=== PATIENT | female | born 1950 | race Caucasian/White ===

== ENCOUNTER 2017-02-19 01:36 | Inpatient (IN) | payer OTHER ==
--- NOTE | 2017-02-19 01:43 | DR.GENAD ---
HPI - HPI Comment HPI Comment: HISTORY BELOW. - Complaint/Symptoms Chief Complaint Doctors Comments: INCRESING SOB TIMES 2 DAYS. N/V YESTERDAY. NO FEVER. TONIGHT WAS ON HER BPAP AND STARTED HAVING SEVERE SOB. CHRONIC PERIPHERAL EDEMA WHICH IS SLIGHTLY WORSE. - Nurses notes reviewed Nurses Notes Review: Yes - Source History Provided: Patient, Family Member - Mode of Arrival Mode of Arrival: Ambulatory - Timing Came on: Suddenly - Duration Duration: Constant Duration: Days - Severity Severity: Moderate PMH - PMH Past Medical History: Arthritis, Dyslipidemia, GERD, Hypertension Past Surgical History: Yes Surgical History: , Cholecystectomy, Hysterectomy, Joint Replacement - Family History Family Medical History: Diabetes Mellitus, Cancer, [place], Coronary Artery Disease, Heart Failure, Hypertension - Social History Do you use any recreational Drugs:: No ROS - Review of Systems Constitutional: Weakness, Fatigue. negative: Chills, Fever, Loss of Appetite Eyes: negative: Eye Pain, Discharge ENTM: Nose Congestion. negative: Ear Pain, Nose Discharge, Throat Pain Respiratoy: Productive Cough, Short of Breath, Wheezing. negative: Non- Productive Cough, Hemoptysis Cardiovascular: Chest Pain, Edema Gastrointestinal/Abdominal: Nausea, Vomiting. negative: Abdominal Pain, Diarrhea Genitourinary: negative: Dysuria, Frequency, Hematuria Neurological: Weakness. negative: Headache, Dizziness Musculoskeletal: Back Pain, Joint Pain, Joint Swelling, Muscle Pain, Back Integumentary: Change in Color, Other (CHRONIC STASIS DERMATITIS.) Hematologic/Lymphatic: Easy Bleeding, Easy Bruising Endocrine: No Symptoms Reported All Other Systems: Reviewed and Negative PE - Vital Signs Vitals: Pulse Rate 108 Respiratory Rate 26 Blood Pressure [Left Arm] 119/53 Blood Pressure [Right Arm] 105/55 Blood Pressure 126/68 O2 Sat by Pulse Oximetry 89 - General Limitations: No Limitations General Appearance: Alert - Head Head Exam: Normal Inspection - Eyes Eye exam: Normal Appearance, PERRL, EOMI. negative: Scleral Icterus, Conjunctival Injection - ENT ENT Exam: Normal External Ear Exam External Ear Exam: Normal External Inspection TM/Canal Exam: Bilateral Normal Nose Exam: Normal Nose Exam Mouth Exam: Normal Inspection Throat Exam: Normal Inspection - Neck Neck Exam: Trachea Midline - Respiratory Respiratory Exam: Respiratory Distress Respiratory Exam: Bilateral Wheezing, Bilateral Rhonchi, Upper Wheezing, Upper Rhonchi, Lower Wheezing, Lower Rhonchi - Cardiovascular Cardiovascular Exam: Regular Rate, Normal Rhythm, Normal Heart Sounds - Abdominal Exam Abdominal Exam: Normal Bowel Sounds, Soft. negative: Tenderness Abdominal Tenderness: Diffuse. negative: Moderate - Extremities Extremities Exam: Edema (3PLUS) - Back Back Exam: Paraspinal Tenderness - Psychiatric Psychiatric Exam: Normal Affect, Normal Mood - Skin Skin Exam: Erythema MDM - Additional Information Additional Information Obtained From: Family - Differential Diagnosis Differential Diagnosis: CHF, COPD, PNEUMONIA, PNEUMOTHORAX, PULMONARY EMBOLISM. Course - Treatment Treatment: SEE ORDERS. - Education/Counseling Education/Counseling: Patient, Family, Education Educated On: Diagnosis ROR - Labs Reviewed Laboratory Results Reviewed?: Yes Result Diagrams: 02/19/17 01:35 02/19/17 01:35 Laboratory: WBC 19.5 X10^3/uL (3.6-10.0) H 02/19/17 01:35 RBC 4.83 X10^6/uL (3.5-5.4) 02/19/17 01:35 Hgb 13.6 g/dL (12.0-16.0) 02/19/17 01:35 Hct 41.7 % (36.0-47.0) 02/19/17 01:35 MCV 86.3 fL (80.0-100.0) 02/19/17 01:35 MCH 28.2 pg (27.0-34.0) 02/19/17 01:35 MCHC 32.7 g/dL (33.0-35.0) L 02/19/17 01:35 RDW 14.9 % (11.6-16.5) 02/19/17 01:35 Plt Count 137 X10^3/uL (150.0-450.0) L 02/19/17 01:35 Plt Count Comment Decreased (ADEQUATE) A 02/19/17 01:35 MPV 9.2 fL (7.4-11.0) 02/19/17 01:35 Neut % 93.3 % (42.0-75.0) H 02/19/17 01:35 Lymph % 2.6 % (21.0-51.0) L 02/19/17 01:35 [place] % 3.8 % (0.0-13.0) 02/19/17 01:35 Eos % 0.0 % (0.9-2.9) L 02/19/17 01:35 Baso % 0.3 % (0.2-1.0) 02/19/17 01:35 Neut # 18.1 x10^3/uL (2.2-4.8) H 02/19/17 01:35 Lymph # 0.5 X10^3/uL (1.3-2.9) L 02/19/17 01:35 [place] # 0.7 x10^3/uL (0.3-0.8) 02/19/17 01:35 Eos # 0.0 x10^3/uL (0.0-0.2) 02/19/17 01:35 Baso # 0.1 X10^3/uL (0.0-0.1) 02/19/17 01:35 Absolute Nucleated RBC 0.0 /100WBC 02/19/17 01:35 Total Counted 100 02/19/17 01:35 Neutrophils % (Manual) 83 % (39-76) H 02/19/17 01:35 Band Neutrophils % 8 % (0-10) 02/19/17 01:35 Lymphocytes % (Manual) 5 % (13-43) L 02/19/17 01:35 Monocytes % (Manual) 4 % (4-9) 02/19/17 01:35 Plt Morphology Comment Normal (NORMAL) 02/19/17 01:35 RBC Morphology Abnormal (NORMAL) A 02/19/17 01:35 Stomatocytes Noted 02/19/17 01:35 INR Target Range - 02/19/17 01:35 INR 1.45 (0.8-1.3) H 02/19/17 01:35 PTT 36.0 SECONDS (22.9-36.5) 02/19/17 01:35 PTT Comment - 02/19/17 01:35 Sample Site R rad 02/19/17 01:56 ABG pH 7.480 (7.35-7.45) H 02/19/17 01:56 ABG pCO2 50.0 mmHg (35.0-45.0) H 02/19/17 01:56 ABG pO2 78.0 mmHg (80.0-100.0) L 02/19/17 01:56 ABG HCO3 37.2 mmol/L (22-26) H* 02/19/17 01:56 ABG O2 Saturation 96.0 % (90-100) 02/19/17 01:56 ABG Base Excess 11.9 mmol/L (-2.0-2.0) H 02/19/17 01:56 Jose Angel Test Pos 02/19/17 01:56 A-a Gradient 59.0 mmHg 02/19/17 01:56 FiO2 28.000 02/19/17 01:56 Blood Gas Comments Dannie well, afh 02/19/17 01:56 Sodium 139 mmol/L (136-145) 02/19/17 01:35 Corrected Sodium 139 mmol/L (136-145) 02/19/17 01:35 Potassium 3.8 mmol/L (3.5-5.1) 02/19/17 01:35 Chloride 97 mmol/L (98-107) L 02/19/17 01:35 Carbon Dioxide 34.8 mmol/L (21-32) H 02/19/17 01:35 BUN 13 mg/dL (7-18) 02/19/17 01:35 Creatinine 0.96 mg/dL (0.55-1.02) 02/19/17 01:35 Est GFR (MDRD) Af Amer > 60 (>60) 02/19/17 01:35 Est GFR (MDRD) Non-Af > 60 (>60) 02/19/17 01:35 Glucose 113 mg/dL (65-99) H 02/19/17 01:35 Calcium 8.7 mg/dL (8.5-10.1) 02/19/17 01:35 Corrected Calcium 9.5 mg/dL (8.5-10.1) 02/19/17 01:35 Total Bilirubin 1.30 mg/dL (0.2-1.0) H 02/19/17 01:35 AST 30 Units/L (15-37) 02/19/17 01:35 ALT 10 Units/L (12-78) L 02/19/17 01:35 Alkaline Phosphatase 98 Units/L (46-116) 02/19/17 01:35 Creatine Kinase 214 Units/L (26-192) H 02/19/17 01:35 CK-MB (CK-2) < 1.0 ng/mL (0-4.0) 02/19/17 01:35 CK/CKMB % Calc 0.5 % (<4) 02/19/17 01:35 Troponin I 0.04 ng/mL (0-1.5) 02/19/17 01:35 B-Natriuretic Peptide 357 pg/mL (0-79) H 02/19/17 01:35 Total Protein 6.7 g/dL (6.4-8.2) 02/19/17 01:35 Albumin 3.0 g/dL (3.4-5.0) L 02/19/17 01:35 Globulin 3.7 g/dL (2.5-4.5) 02/19/17 01:35 Albumin/Globulin Ratio 0.8 Ratio (1.1-2.1) L 02/19/17 01:35 - XRAY XRAY Interpreted by: Radiologist XRAY Findings: REPORT DISCUSS WITH PATIENT AND FAMILY. - EKG Rhythm: NSR (EKG NOTED.) - Diagnosis Discharge Problem: CHF (congestive heart failure), Respiratory distress - Discharge Plan Disposition: ADMITTED INPATIENT Condition: Stable - Follow ups/Referrals - Instructions
[2017-02-19 01:56] LABS: BASOPHILS # (AUTO) 0.1 X10^3/uL (0.0-0.1); BASOPHILS % (AUTO) 0.3 % (0.2-1.0); HEMATOCRIT 41.7 % (36.0-47.0); HEMOGLOBIN 13.6 g/dL (12.0-16.0); LYMPHOCYTES # (AUTO) 0.5 X10^3/uL (1.3-2.9); LYMPHOCYTES % (AUTO) 2.6 % (21.0-51.0); MEAN CORPUSCULAR HEMOGLOBIN 28.2 pg (27.0-34.0); MEAN CORPUSCULAR HGB CONC 32.7 g/dL (33.0-35.0); MEAN CORPUSCULAR VOLUME 86.3 fL (80.0-100.0); MEAN PLATELET VOLUME 9.2 fL (7.4-11.0); MONOCYTES # (AUTO) 0.7 x10^3/uL (0.3-0.8); MONOCYTES % (AUTO) 3.8 % (0.0-13.0); NEUTROPHILS # (AUTO) 18.1 x10^3/uL (2.2-4.8); NEUTROPHILS % (AUTO) 93.3 % (42.0-75.0); PLATELET COUNT 137 X10^3/uL (150.0-450.0); RED BLOOD COUNT 4.83 X10^6/uL (3.5-5.4); RED CELL DISTRIBUTION WIDTH 14.9 % (11.6-16.5); WHITE BLOOD COUNT 19.5 X10^3/uL (3.6-10.0)
[2017-02-19 02:07] LABS: ABG BASE EXCESS 11.9 mmol/L (-2.0-2.0)
[2017-02-19 02:08] LABS: ABG ALLEN TEST POS; ABG HCO3 37.2 mmol/L (22-26)
[2017-02-19] MEDS ORDERED: ZOFRAN INJ 4 MG VIAL ONE (02:08)
[2017-02-19] MEDS ORDERED: ZOFRAN INJ 4 MG VIAL IVP ONE (02:08)
[2017-02-19 02:17] LABS: B-TYPE NATRIURETIC PEPTIDE 357 pg/mL (0-79)
[2017-02-19 02:19] LABS: BLOOD UREA NITROGEN 13 mg/dL (7-18); CALCIUM 8.7 mg/dL (8.5-10.1); CARBON DIOXIDE 34.8 mmol/L (21-32); CHLORIDE 97 mmol/L (98-107); COR NA(FOR HYPERGLY) 139 mmol/L (136-145); CREATININE 0.96 mg/dL (0.55-1.02); SODIUM 139 mmol/L (136-145); TROPONIN I 0.04 ng/mL (0-1.5); eGFR BLACK RACES > 60 (>60); eGFR NON BLACK RACES > 60 (>60)
[2017-02-19 02:20] LABS: BAND NEUTROPHILS % 8 % (0-10); PLATELET MORPHOLOGY COMMENT NORMAL (NORMAL); STOMATOCYTES NOTED
[2017-02-19 02:34] LABS: ALANINE AMINOTRANSFERASE 10 Units/L (12-78); ALKALINE PHOSPHATASE 98 Units/L (46-116); ASPARTATE AMINO TRANSFERASE 30 Units/L (15-37); CKMB % 0.5 % (<4); COR CA(FOR HYPOALB) 9.5 mg/dL (8.5-10.1); CREATINE KINASE 214 Units/L (26-192); CREATINE KINASE MB < 1.0 ng/mL (0-4.0); TOTAL PROTEIN 6.7 g/dL (6.4-8.2)
[2017-02-19] MEDS ORDERED: LASIX IVP ONE (02:40)
[2017-02-19] MEDS ORDERED: ROCEPHIN VIAL 1 GM 1 GM in NS 50 ML IV + SPIKE MINIBAG* 50 ML IV ONE (03:29)
[2017-02-19] MEDS ORDERED: NS 1/2 1000 ML IV 1,000 ML IV ONE (03:32)
[2017-02-19] MEDS ORDERED: ROCEPHIN 1 GM IV PREMIX 50 ML IV ONE (03:33)
[2017-02-19] MEDS: NS 1/2 1000 ML IV 1,000 ML IV SCH (03:45)
[2017-02-19] MEDS: K-DUR TAB 20 MEQ PO SCH ×2 (05:45→08:49)
[2017-02-19 06:33] VITALS: BMI 67.1
[2017-02-19 07:52] LABS: BILIRUBIN,URINE NEGATIVE (NEGATIVE); BLOOD/HEMOGLOBIN,URINE 1+ (NEGATIVE); GLUCOSE, URINE NEGATIVE (NEGATIVE); KETONES,URINE NEGATIVE (NEGATIVE); LEUKOCYTE ESTERASE ,URINE NEGATIVE (NEGATIVE); NITRITES,URINE NEGATIVE (NEGATIVE); PROTEIN,URINE NEGATIVE (NEGATIVE); UROBILINOGEN,URINE NORMAL (NORMAL)
[2017-02-19 08:04] LABS: APPEARANCE,URINE SLIGHTLY HAZY (CLEAR); BACTERIA,URINE TRACE /HPF (NEGATIVE); COLOR,URINE YELLOW (YELLOW); RBC,URINE 0-3 /HPF (NEGATIVE); SQUAMOUS EPITHELIAL CELL,UR FEW /HPF (NEGATIVE)
[2017-02-19 08:05] LABS: AMORPHOUS SEDIMENT,UR TRACE /HPF (NEGATIVE)
[2017-02-19 08:42] LABS: CKMB % 0.4 % (<4); CREATINE KINASE MB 1.1 ng/mL (0-4.0); TROPONIN I 0.03 ng/mL (0-1.5)
[2017-02-19] MEDS: LASIX IVP SCH ×2 (08:49→20:09)
[2017-02-19] MEDS: ROCEPHIN 1 GM IV PREMIX 50 ML IV SCH (08:56)
[2017-02-19 14:26] LABS: CKMB % 0.4 % (<4); CREATINE KINASE 254 Units/L (26-192); CREATINE KINASE MB < 1.0 ng/mL (0-4.0); TROPONIN I 0.02 ng/mL (0-1.5)
[2017-02-19] MEDS: TYLENOL 325 MG TAB PO PRN (20:09)
[2017-02-19] MEDS: RESTORIL CAP 15 MG PO PRN (20:39)
[2017-02-19 21:16] LABS: CKMB % 0.4 % (<4); CREATINE KINASE 246 Units/L (26-192); CREATINE KINASE MB < 1.0 ng/mL (0-4.0); TROPONIN I < 0.02 ng/mL (0-1.5)
[2017-02-20 03:00] LABS: BASOPHILS % (AUTO) 0.1 % (0.2-1.0); HEMATOCRIT 39.5 % (36.0-47.0); HEMOGLOBIN 12.7 g/dL (12.0-16.0); LYMPHOCYTES % (AUTO) 6.4 % (21.0-51.0); MEAN CORPUSCULAR HEMOGLOBIN 28.2 pg (27.0-34.0); MEAN CORPUSCULAR HGB CONC 32.2 g/dL (33.0-35.0); MEAN CORPUSCULAR VOLUME 87.6 fL (80.0-100.0); MEAN PLATELET VOLUME 9.6 fL (7.4-11.0); MONOCYTES # (AUTO) 1.1 x10^3/uL (0.3-0.8); MONOCYTES % (AUTO) 6.7 % (0.0-13.0); NEUTROPHILS % (AUTO) 86.8 % (42.0-75.0); PLATELET COUNT 106 X10^3/uL (150.0-450.0); RED BLOOD COUNT 4.51 X10^6/uL (3.5-5.4); RED CELL DISTRIBUTION WIDTH 15.1 % (11.6-16.5); WHITE BLOOD COUNT 16.2 X10^3/uL (3.6-10.0)
[2017-02-20 03:20] LABS: ALANINE AMINOTRANSFERASE 28 Units/L (12-78); ALBUMIN 2.9 g/dL (3.4-5.0); ALKALINE PHOSPHATASE 95 Units/L (46-116); ASPARTATE AMINO TRANSFERASE 32 Units/L (15-37); BLOOD UREA NITROGEN 15 mg/dL (7-18); CALCIUM 8.4 mg/dL (8.5-10.1); CHLORIDE 97 mmol/L (98-107); COR CA(FOR HYPOALB) 9.3 mg/dL (8.5-10.1); COR NA(FOR HYPERGLY) 142 mmol/L (136-145); CREATININE 0.82 mg/dL (0.55-1.02); SODIUM 141 mmol/L (136-145); TOTAL PROTEIN 6.1 g/dL (6.4-8.2); eGFR BLACK RACES > 60 (>60); eGFR NON BLACK RACES > 60 (>60)
[2017-02-20 03:21] LABS: CKMB % 0.5 % (<4); CREATINE KINASE 209 Units/L (26-192); CREATINE KINASE MB < 1.0 ng/mL (0-4.0); TROPONIN I < 0.02 ng/mL (0-1.5)
[2017-02-20 03:23] LABS: B-TYPE NATRIURETIC PEPTIDE 61.6 pg/mL (0-79)
[2017-02-20] MEDS: NS 1/2 1000 ML IV 1,000 ML IV SCH ×3 (04:00→13:26)
[2017-02-20] MEDS ORDERED: ROCEPHIN VIAL 1 GM 1 GM in NS 50 ML IV + SPIKE MINIBAG* 50 ML IV SCH (06:00)
[2017-02-20] MEDS: K-DUR TAB 20 MEQ PO SCH (08:31)
[2017-02-20] MEDS: LASIX IVP SCH ×2 (08:31→20:53)
[2017-02-20] MEDS: ROCEPHIN 1 GM IV PREMIX 50 ML IV SCH (08:31)
--- NOTE | 2017-02-20 09:34 | RAD ---
HISTORY: Pain Study: Portable chest Comparison: 02/19/2017 Findings: The heart is less prominent. The pulmonary vessels are less prominent centrally . There is a right Po rt-A-Cath in place which is unchanged . There is overlying EKG lead artifact with some mild interstit ial and linear densities along the lung bases which are less prominent. There is minimal blunting of the left costophrenic angle which is decreased. IMPRESSION: Slight decrease in the heart size with slowly resolving pulmonary edema. Questionable small left pleural effusion which is less prominent. No change in the right Port-A-Cath position. Reported By:
[2017-02-20] MEDS ORDERED: NORCO 5/325 MG TAB PO PRN (11:59)
[2017-02-20] MEDS ORDERED: ONDANSETRON HCL 8 MG PO PRN (11:59)
[2017-02-20] MEDS ORDERED: XANAX PO PRN (11:59)
[2017-02-20] MEDS ORDERED: ZOFRAN TAB 4 MG PO PRN (13:00)
[2017-02-20] MEDS ORDERED: NS 1/2 1000 ML IV 1,000 ML IV ONE (13:11)
[2017-02-20] MEDS: ELIQUIS PO SCH ×2 (13:20→20:50)
[2017-02-20] MEDS: BETAPACE AF PO SCH ×2 (13:21→20:52)
[2017-02-20] MEDS: CELEBREX PO SCH ×2 (13:21→20:52)
[2017-02-20] MEDS: ZANTAC PO SCH (13:21)
[2017-02-20] MEDS: ASPIRIN EC 81 MG PO SCH (13:21)
[2017-02-20] MEDS: SINEMET (PLAIN) 25/100 MG PO SCH ×2 (13:22→20:52)
--- NOTE | 2017-02-20 19:32 | DR.H&P ---
H&P - History & Physical for Day of: H&P Date: 02/19/17 - Chief Complaint Chief Complaint: short of breath - Allergies Allergies/Adverse Reactions: Allergies Allergy/AdvReac Type Severity Reaction Status Date / Time meperidine [From Demerol] Allergy Verified 02/19/17 02:07 - Past Medical History Past Medical History: Arthritis, Dyslipidemia, GERD, Hypertension, Sleep Apnea Additional Medical History: Atrial Fibrillation, Sleep Apnea, Diarrhea, Constipation, H-pylori, Endometriosis, Fibromyalgia, Degernative Disc Disease, Cellutlitis, Lymphedema, elephantitis. - Past Surgical History Surgical History: , Cholecystectomy, Hysterectomy, Joint Replacement, Other Additional Surgical History: Lap Band, Tubal Ligation - Family History Family Medical History: Diabetes Mellitus, Cancer, [place], Heart Failure, Hypertension - Social History Does patient currently use any type of tobacco product: No Have you used tobacco products in the last 12 months: No Type of Tobacco Use: None Does any household member use tobacco: No Alcohol Use: None Drug Use: None - Medications Home Medications: Celecoxib [CELEBREX 100 MG *] 100 mg PO BID 02/19/17 [History Confirmed 02/19/17 ] Ondansetron HCl [Zofran] 8 mg PO Q6H PRN 02/19/17 [History Confirmed 02/19/17] Ranitidine HCl [ZANTAC TAB 150 MG *] 150 mg PO DAILY 02/19/17 [History Confirmed 02/19/17] - Review of Systems Constitutional: Weakness, Other (FATIGUE, ) ENT: Nose Congestion Respiratory: Cough, Shortness of Breath, SOB with Excertion, Sputum, Wheezing Cardiovascular: Chest Pain, Edema Gastrointestinal: Nausea, Vomiting. denies: Abdominal Pain, Diarrhea Genitourinary: denies: Dysuria, Frequency, Hematuria, Retention Musculoskeletal: Back Pain, Leg Pain, Foot Pain Skin: Other (EDEMA, REDNESS TO LOWER EXTREMITIES) Neurological: Weakness. denies: Numbness, Incoordination, Change in Speech, Confusion, Seizures - Physical Exam Vital Signs: Temperature 97.7 F Pulse Rate [Left] 68 Pulse Rate 108 Respiratory Rate 29 Blood Pressure [Left Arm] 89/53 Blood Pressure [Right Arm] 105/55 Blood Pressure 126/68 O2 Sat by Pulse Oximetry 100 Oriented: Normal Eyes: Normal. negative: Blurred Vision, Diplopia, Photophobia Ear: Normal. negative: Swelling, Ecchymosis, Hemotypanum, Abrasion, Laceration Nose: Discharge Throat: Normal Respiratory: Wheezes Throughout Cardiovascular: Normal, Tachycardia, Edema (BILATER LOWER EXTREMITY EDEMA ) : Normal. negative: Testicular Pain, Bleeding, Auscultation: Bowel Sounds: Normal. negative: High Pitched Palpation: Normal Tenderness: Normal. negative: Rebound, Guarding, Rigidity Skin: Red, Tender (BILATERAL LOWER EXTREMITY CELLULITIS ), Wound Musculoskeletal: Right, Left, Leg, Swelling, Tender Psychiatric: Normal Mood Description: Calm Affect: Normal Speech Pattern: Clear - Assessment/Plan (1) CHF (congestive heart failure) Qualifiers: Congestive heart failure type: unspecified congestive heart failure type Congestive heart failure chronicity: acute on chronic Qualified Code(s): I50.9 - Heart failure, unspecified Status: Acute Plan: supplemental oxygen, home bipap/cpap, lasix 40mg IV bid, continue to monitor labs and chest xray, obtain ECHO (2) Respiratory distress Status: Acute Plan: supplemental oxygen, home bipap/cpap, lasix 40mg IV bid, continue to monitor labs and chest xray (3) Stasis dermatitis of both legs Status: Chronic Plan: rocephin 1gm iv daily, continue to monitor
[2017-02-20] MEDS ORDERED: MILK OF MAGNESIA PO PRN (20:07)
[2017-02-20] MEDS ORDERED: COLACE CAP 100 MG PO PRN (20:07)
[2017-02-20] MEDS ORDERED: SALINE 3% 15 ML NEB TX ONE (20:19)
[2017-02-20] MEDS: DUONEB 0.5 MG/3 MG NEB SCH ×2 (20:25→20:59)
[2017-02-20] MEDS: CRESTOR TAB 10 MG PO SCH (20:50)
[2017-02-20] MEDS: RESTORIL CAP 15 MG PO PRN (20:52)
[2017-02-20] MEDS ORDERED: PATIENT'S HOME MEDICATION (Rosuvastatin Calcium [Crestor] 20 MG) PO SCH (21:00)
[2017-02-21] MEDS: NS 1/2 1000 ML IV 1,000 ML IV SCH (04:00)
[2017-02-21 05:32] LABS: BASOPHILS % (AUTO) 0.3 % (0.2-1.0); EOSINOPHILS % (AUTO) 0.4 % (0.9-2.9); HEMOGLOBIN 12.3 g/dL (12.0-16.0); LYMPHOCYTES # (AUTO) 1.1 X10^3/uL (1.3-2.9); LYMPHOCYTES % (AUTO) 11.7 % (21.0-51.0); MEAN CORPUSCULAR HEMOGLOBIN 28.4 pg (27.0-34.0); MEAN CORPUSCULAR HGB CONC 32.4 g/dL (33.0-35.0); MEAN CORPUSCULAR VOLUME 87.6 fL (80.0-100.0); MEAN PLATELET VOLUME 9.9 fL (7.4-11.0); MONOCYTES # (AUTO) 0.8 x10^3/uL (0.3-0.8); MONOCYTES % (AUTO) 9.1 % (0.0-13.0); NEUTROPHILS # (AUTO) 7.1 x10^3/uL (2.2-4.8); NEUTROPHILS % (AUTO) 78.5 % (42.0-75.0); PLATELET COUNT 106 X10^3/uL (150.0-450.0); RED BLOOD COUNT 4.34 X10^6/uL (3.5-5.4)
[2017-02-21 05:46] LABS: ALANINE AMINOTRANSFERASE 11 Units/L (12-78); ALBUMIN 2.5 g/dL (3.4-5.0); ALKALINE PHOSPHATASE 89 Units/L (46-116); ASPARTATE AMINO TRANSFERASE 22 Units/L (15-37); BLOOD UREA NITROGEN 11 mg/dL (7-18); CALCIUM 8.4 mg/dL (8.5-10.1); CHLORIDE 98 mmol/L (98-107); COR CA(FOR HYPOALB) 9.6 mg/dL (8.5-10.1); COR NA(FOR HYPERGLY) 141 mmol/L (136-145); CREATININE 0.61 mg/dL (0.55-1.02); SODIUM 141 mmol/L (136-145); TOTAL PROTEIN 6.5 g/dL (6.4-8.2); eGFR BLACK RACES > 60 (>60); eGFR NON BLACK RACES > 60 (>60)
[2017-02-21 05:49] LABS: CARBON DIOXIDE > 45.0 mmol/L (21-32)
--- NOTE | 2017-02-21 06:25 | RAD ---
HISTORY: Shortness of breath Study: Chest AP portable Comparison: 02/20/2017 Findings: There is a poor present on the right. The heart is enlarged. No congestive heart failure is noted. No acute alveolar infiltrates or pleural effusions are identified. The bony thorax is unremarkable. IMPRESSION: Cardiomegaly without congestive heart failure Lungs clear Reported By:
[2017-02-21] MEDS: CELEBREX PO SCH ×2 (09:04→21:06)
[2017-02-21] MEDS: ASPIRIN EC 81 MG PO SCH (09:04)
[2017-02-21] MEDS: LASIX IVP SCH ×2 (09:05→21:05)
[2017-02-21] MEDS: ELIQUIS PO SCH ×2 (09:05→21:06)
[2017-02-21] MEDS: ZANTAC PO SCH (09:05)
[2017-02-21] MEDS: ROCEPHIN 1 GM IV PREMIX 50 ML IV SCH (09:05)
[2017-02-21] MEDS: BETAPACE AF PO SCH ×2 (09:05→21:06)
[2017-02-21] MEDS: K-DUR TAB 20 MEQ PO SCH (09:05)
[2017-02-21] MEDS: SINEMET (PLAIN) 25/100 MG PO SCH ×2 (09:06→21:05)
[2017-02-21] MEDS: DUONEB 0.5 MG/3 MG NEB SCH ×7 (09:36→20:48)
--- NOTE | 2017-02-21 14:04 | PCM.PROG ---
Progress Note - Progress Note for Day of Date: 02/20/17 - Subjective Subjective: WAS ADMITTED FOR CHF AND RESPIRATORY DISTRESS. TODAY, SHE IS ALERT AND ORIENTED, SITTING UP IN CHAIR ON MORNING ROUNDS. PATIENT'S IS AT BEDSIDE. SHE IS CURRENTLY WEARING HER HOME CPAP/BIPAP MACHINE. SHE CONTINUES TO REPORT SHORTNESS OF BREATH DESPITE WEARING CPAP, HOWEVER, REPORTS THAT IT HAS SOMEWHAT IMPROVED SINCE YESTERDAY. SHE ALSO CONTINUES WITH A NON- PRODUCTIVE COUGH. ON EXAMINATION, LUNGS WERE NOTED WITH WHEEZING BILATERALLY TO AUSCULTATION. ABDOMEN IS ROUND, SOFT, AND NON-TENDER WITH NORMAL BOWEL SOUNDS NOTED IN ALL QUADRANTS. SHE CONTINUES WITH ERRYTHEMA AND 3+ PITTING EDEMA TO BILATERAL LOWER EXTREMITIES. HER VITAL SIGNS THIS MORNING ARE 97.9-89-21-100%- 112/53. PATIENT IS HYPERCAPNIC, WITH CARBON DIOXIDE LEVELS GREATER THAN 45 THIS MORNING. ABNORMAL LAB VALUES THIS MORNING INCLUDE THE FOLLOWING: WBC 16.2, PLT COUNT 106, CHLORIDE 97, CARBON DIOXIDE 44, GLUCOSE 148, CALCIUM 8.4, TOTAL BILI 1.10, TOTAL PROTEIN 6.1, ALBUMIN 2.9. CARDIAC ENZYMES ARE WITHIN NORMAL LIMITS. PRELIMINARY BLOOD CULTURES REPORT NO GROWTH. SPUTUM CULTURES ARE PENDING. CHEST XRAY REPORTS SLIGHT DECRASE IN THE HEART SIZE WITH SLOWLY RESOLVING PULMONARY EDEMA, QUESTIONABLE SMALL LEFT PLEURAL EFFUSION WHICH IS LESS PROMINENT. MOST RECENT EKG REPORTS SINUS RHYTHM WITH HR 84. AN ECHO WAS OBTAINED AND REPORTED A EJECTION FRACTION OF 60-65%. TODAY, WE WILL START DUONEBS QID PRN. OTHERWISE, WE WILL CONTINUE WITH CURRENT PLAN OF CARE. WE PLAN TO FOLLOW UP WITH AM LABS AND CONTINUE TO MONITOR PATIENT. - Past Medical Family Social History Past Med/Fam/Surg Hx: No changes since H&P Allergies: Allergies meperidine [From Demerol] Allergy (Verified 02/19/17 02:07) - Review of Systems ROS: No change since H&P - Vital Signs and I&O's Vital Signs: Temperature 97 F Pulse Rate [Left] 64 Pulse Rate 70 Respiratory Rate 18 Blood Pressure [Left Arm] 88/51 Blood Pressure [Right Arm] 105/55 Blood Pressure 126/68 O2 Sat by Pulse Oximetry 94 Intake and Output: Intake & Output 02/19/17 02/20/17 02/21/17 02/22/17 11:59 11:59 11:59 11:59 Intake Total 345 1720 2414 Output Total 621 2430 [id number] [facility] -[phone] - Physical Exam Oriented: Normal Eyes: Normal. negative: Blurred Vision, Diplopia, Photophobia Ear: Normal. negative: Swelling, Ecchymosis, Hemotypanum, Abrasion, Laceration Nose: Discharge Throat: Normal Respiratory: Generalized, Wheezes Cardiovascular: Normal, Tachycardia, Edema (BILATER LOWER EXTREMITY EDEMA ) : Normal. negative: Testicular Pain, Bleeding, Auscultation: Bowel Sounds: Normal. negative: High Pitched Palpation: Normal Tenderness: Normal. negative: Rebound, Guarding, Rigidity Skin: Rash, Papular, Red, Tender (BILATERAL LOWER EXTREMITY CELLULITIS ), Wound Musculoskeletal: Right, Left, Leg, Swelling, Tender Psychiatric: Normal Mood Description: Calm Affect: Normal Speech Pattern: Clear - Laboratory and Diagnostics Result Diagrams: 02/22/17 05:20 02/22/17 05:20 Labs: 02/20/17 21:36 Sputum - Expectorated Sputum Sputum Culture - Preliminary 02/20/17 21:36 Sputum - Expectorated Sputum - Final 02/19/17 05:55 Blood Blood Culture - Preliminary 02/19/17 05:45 Blood Blood Culture - Preliminary Laboratory WBC 9.0 X10^3/uL (3.6-10.0) 02/21/17 04:10 RBC 4.34 X10^6/uL (3.5-5.4) 02/21/17 04:10 Hgb 12.3 g/dL (12.0-16.0) 02/21/17 04:10 Hct 38.0 % (36.0-47.0) 02/21/17 04:10 MCV 87.6 fL (80.0-100.0) 02/21/17 04:10 MCH 28.4 pg (27.0-34.0) 02/21/17 04:10 MCHC 32.4 g/dL (33.0-35.0) L 02/21/17 04:10 RDW 15.0 % (11.6-16.5) 02/21/17 04:10 Plt Count 106 X10^3/uL (150.0-450.0) L 02/21/17 04:10 Plt Count Comment Decreased (ADEQUATE) A 02/19/17 01:35 MPV 9.9 fL (7.4-11.0) 02/21/17 04:10 Neut % 78.5 % (42.0-75.0) H 02/21/17 04:10 Lymph % 11.7 % (21.0-51.0) L 02/21/17 04:10 [place] % 9.1 % (0.0-13.0) 02/21/17 04:10 Eos % 0.4 % (0.9-2.9) L 02/21/17 04:10 Baso % 0.3 % (0.2-1.0) 02/21/17 04:10 Neut # 7.1 x10^3/uL (2.2-4.8) H 02/21/17 04:10 Lymph # 1.1 X10^3/uL (1.3-2.9) L 02/21/17 04:10 [place] # 0.8 x10^3/uL (0.3-0.8) 02/21/17 04:10 Eos # 0.0 x10^3/uL (0.0-0.2) 02/21/17 04:10 Baso # 0.0 X10^3/uL (0.0-0.1) 02/21/17 04:10 Absolute Nucleated RBC 0.0 /100WBC 02/21/17 04:10 Total Counted 100 02/19/17 01:35 Neutrophils % (Manual) 83 % (39-76) H 02/19/17 01:35 Band Neutrophils % 8 % (0-10) 02/19/17 01:35 Lymphocytes % (Manual) 5 % (13-43) L 02/19/17 01:35 Monocytes % (Manual) 4 % (4-9) 02/19/17 01:35 Plt Morphology Comment Normal (NORMAL) 02/19/17 01:35 RBC Morphology Abnormal (NORMAL) A 02/19/17 01:35 Stomatocytes Noted 02/19/17 01:35 INR Target Range - 02/19/17 01:35 INR 1.45 (0.8-1.3) H 02/19/17 01:35 PTT 36.0 SECONDS (22.9-36.5) 02/19/17 01:35 PTT Comment - 02/19/17 01:35 Sample Site R rad 02/19/17 01:56 ABG pH 7.480 (7.35-7.45) H 02/19/17 01:56 ABG pCO2 50.0 mmHg (35.0-45.0) H 02/19/17 01:56 ABG pO2 78.0 mmHg (80.0-100.0) L 02/19/17 01:56 ABG HCO3 37.2 mmol/L (22-26) H* 02/19/17 01:56 ABG O2 Saturation 96.0 % (90-100) 02/19/17 01:56 ABG Base Excess 11.9 mmol/L (-2.0-2.0) H 02/19/17 01:56 Jose Angel Test Pos 02/19/17 01:56 A-a Gradient 59.0 mmHg 02/19/17 01:56 FiO2 28.000 02/19/17 01:56 Blood Gas Comments Dannie well, af 02/19/17 01:56 Sodium 141 mmol/L (136-145) 02/21/17 04:10 Corrected Sodium 141 mmol/L (136-145) 02/21/17 04:10 Potassium 3.6 mmol/L (3.5-5.1) 02/21/17 04:10 Chloride 98 mmol/L (98-107) 02/21/17 04:10 Carbon Dioxide > 45.0 mmol/L (21-32) H* 02/21/17 04:10 BUN 11 mg/dL (7-18) 02/21/17 04:10 Creatinine 0.61 mg/dL (0.55-1.02) 02/21/17 04:10 Est GFR (MDRD) Af Amer > 60 (>60) 02/21/17 04:10 Est GFR (MDRD) Non-Af > 60 (>60) 02/21/17 04:10 Glucose 111 mg/dL (65-99) H 02/21/17 04:10 Lactic Acid 1.0 mmol/L (0.4-2.0) 02/19/17 16:27 Calcium 8.4 mg/dL (8.5-10.1) L 02/21/17 04:10 Corrected Calcium 9.6 mg/dL (8.5-10.1) 02/21/17 04:10 Total Bilirubin 0.40 mg/dL (0.2-1.0) 02/21/17 04:10 AST 22 Units/L (15-37) 02/21/17 04:10 ALT 11 Units/L (12-78) L 02/21/17 04:10 Alkaline Phosphatase 89 Units/L (46-116) 02/21/17 04:10 Creatine Kinase 209 Units/L (26-192) H 02/20/17 02:25 CK-MB (CK-2) < 1.0 ng/mL (0-4.0) 02/20/17 02:25 CK/CKMB % Calc 0.5 % (<4) 02/20/17 02:25 Troponin I < 0.02 ng/mL (0-1.5) 02/20/17 02:25 B-Natriuretic Peptide 61.6 pg/mL (0-79) 02/20/17 02:25 Total Protein 6.5 g/dL (6.4-8.2) 02/21/17 04:10 Albumin 2.5 g/dL (3.4-5.0) L 02/21/17 04:10 Globulin 4.0 g/dL (2.5-4.5) 02/21/17 04:10 Albumin/Globulin Ratio 0.6 Ratio (1.1-2.1) L 02/21/17 04:10 Specimen Type Catherized urine 02/19/17 07:22 Urine Color Yellow (YELLOW) 02/19/17 07:22 Urine Appearance Slightly hazy (CLEAR) 02/19/17 07:22 Urine pH 5.0 (5.0 - 8.0) 02/19/17 07:22 Ur Specific [place] 1.010 (1.000-1.030) 02/19/17 07:22 Urine Protein Negative (NEGATIVE) 02/19/17 07:22 Urine Glucose (UA) Negative (NEGATIVE) 02/19/17 07:22 Urine Ketones Negative (NEGATIVE) 02/19/17 07:22 Urine Occult Blood 1+ (NEGATIVE) 02/19/17 07:22 Urine Nitrite Negative (NEGATIVE) 02/19/17 07:22 Urine Bilirubin Negative (NEGATIVE) 02/19/17 07:22 Urine Urobilinogen Normal (NORMAL) 02/19/17 07:22 Ur Leukocyte Esterase Negative (NEGATIVE) 02/19/17 07:22 Urine RBC 0-3 /HPF (NEGATIVE) 02/19/17 07:22 Urine WBC 0-3 /HPF (NEGATIVE) 02/19/17 07:22 Ur Squamous Epith Cells Few /HPF (NEGATIVE) 02/19/17 07:22 Amorphous Sediment Trace /HPF (NEGATIVE) 02/19/17 07:22 Urine Bacteria Trace /HPF (NEGATIVE) 02/19/17 07:22 Ur Culture Indicated? No/not indicated 02/19/17 07:22 - Plan (1) CHF (congestive heart failure) Status: Acute Qualifiers: Congestive heart failure type: unspecified congestive heart failure type Congestive heart failure chronicity: acute on chronic Qualified Code(s): I50.9 - Heart failure, unspecified Plan: supplemental oxygen, home bipap/cpap, lasix 40mg IV bid, continue to monitor labs and chest xray, obtain ECHO (2) Respiratory distress Status: Acute Plan: supplemental oxygen, home bipap/cpap, DUONEB QID, lasix 40mg IV bid, continue to monitor labs and chest xray (3) Hypercapnia Status: Acute Plan: CONTINUE BIPAP/CPAP, CONTINUE TO MONITOR (4) Stasis dermatitis of both legs Status: Chronic Plan: rocephin 1gm iv daily, continue to monitor
[2017-02-21] MEDS: NYSTATIN SUSP MT SCH ×2 (17:00→21:06)
[2017-02-21] MEDS: DIFLUCAN 200 MG IV PREMIX* 200 MG/100 ML BAG IV SCH (17:00)
[2017-02-21] MEDS: TYLENOL 325 MG TAB PO PRN (17:00)
[2017-02-21] MEDS: RESTORIL CAP 15 MG PO PRN (21:05)
[2017-02-21] MEDS: CRESTOR TAB 10 MG PO SCH (21:06)
[2017-02-22] MEDS: NS 1/2 1000 ML IV 1,000 ML IV SCH (04:00)
[2017-02-22 06:23] LABS: BASOPHILS % (AUTO) 0.5 % (0.2-1.0); EOSINOPHILS # (AUTO) 0.1 x10^3/uL (0.0-0.2); EOSINOPHILS % (AUTO) 0.9 % (0.9-2.9); HEMATOCRIT 36.3 % (36.0-47.0); HEMOGLOBIN 12.1 g/dL (12.0-16.0); LYMPHOCYTES # (AUTO) 1.3 X10^3/uL (1.3-2.9); LYMPHOCYTES % (AUTO) 19.2 % (21.0-51.0); MEAN CORPUSCULAR HEMOGLOBIN 28.8 pg (27.0-34.0); MEAN CORPUSCULAR HGB CONC 33.3 g/dL (33.0-35.0); MEAN CORPUSCULAR VOLUME 86.4 fL (80.0-100.0); MEAN PLATELET VOLUME 9.8 fL (7.4-11.0); MONOCYTES # (AUTO) 0.8 x10^3/uL (0.3-0.8); MONOCYTES % (AUTO) 11.7 % (0.0-13.0); NEUTROPHILS # (AUTO) 4.7 x10^3/uL (2.2-4.8); NEUTROPHILS % (AUTO) 67.7 % (42.0-75.0); PLATELET COUNT 113 X10^3/uL (150.0-450.0); RED CELL DISTRIBUTION WIDTH 14.6 % (11.6-16.5); WHITE BLOOD COUNT 6.9 X10^3/uL (3.6-10.0)
[2017-02-22 06:46] LABS: ALANINE AMINOTRANSFERASE 8 Units/L (12-78); ALBUMIN 2.4 g/dL (3.4-5.0); ALKALINE PHOSPHATASE 82 Units/L (46-116); ASPARTATE AMINO TRANSFERASE 15 Units/L (15-37); BLOOD UREA NITROGEN 12 mg/dL (7-18); CALCIUM 8.4 mg/dL (8.5-10.1); CHLORIDE 98 mmol/L (98-107); COR CA(FOR HYPOALB) 9.7 mg/dL (8.5-10.1); CREATININE 0.71 mg/dL (0.55-1.02); TOTAL PROTEIN 6.2 g/dL (6.4-8.2); eGFR BLACK RACES > 60 (>60); eGFR NON BLACK RACES > 60 (>60)
[2017-02-22 06:56] LABS: COR NA(FOR HYPERGLY) 140 mmol/L (136-145); SODIUM 140 mmol/L (136-145)
--- NOTE | 2017-02-22 07:03 | RAD ---
HISTORY: Shortness of breath Study: Single-view chest, done portably Comparison: 02/21/2017 Findings: Cardiac monitoring electrodes are noted on the chest. A right-sided Port-A-Cath is seen inserted via subclavian approach with the tip in lower SVC, near the cavoatrial junction. The trachea is midline. There is cardiomegaly with improving pulmonary vascular congestion. Lungs and pleural spaces are malina r. IMPRESSION: Cardiomegaly with improvement in pulmonary vascularity. Clear lungs. Reported By:
[2017-02-22 07:06] LABS: CARBON DIOXIDE > 45.0 mmol/L (21-32)
[2017-02-22] MEDS ORDERED: K-LYTE EFFERVESCENT PO PRN (07:11)
[2017-02-22] MEDS ORDERED: NS 100 ML IV 100 ML IV ONE (08:07)
[2017-02-22] MEDS: DIFLUCAN 200 MG IV PREMIX* 200 MG/100 ML BAG IV SCH (08:13)
[2017-02-22] MEDS: ROCEPHIN 1 GM IV PREMIX 50 ML IV SCH (08:13)
[2017-02-22] MEDS: BETAPACE AF PO SCH (08:14)
[2017-02-22] MEDS: K-DUR TAB 20 MEQ PO SCH (08:14)
[2017-02-22] MEDS: NYSTATIN SUSP MT SCH ×3 (08:14→16:54)
[2017-02-22] MEDS: CELEBREX PO SCH (08:14)
[2017-02-22] MEDS: LASIX IVP SCH ×2 (08:14→10:30)
[2017-02-22] MEDS: ELIQUIS PO SCH (08:14)
[2017-02-22] MEDS: ASPIRIN EC 81 MG PO SCH (08:15)
[2017-02-22] MEDS: ZANTAC PO SCH (08:15)
[2017-02-22] MEDS: SINEMET (PLAIN) 25/100 MG PO SCH (08:16)
[2017-02-22] MEDS: K-RIDER 10 MEQ/NS 100 ML 10 MEQ/100 ML BAG IV PRN ×2 (08:17→11:46)
[2017-02-22] MEDS: DUONEB 0.5 MG/3 MG NEB SCH (09:25)
[2017-02-22] MEDS ORDERED: LASIX IVP SCH (09:27)
--- NOTE | 2017-02-22 11:44 | PCM.PROG ---
Progress Note - Progress Note for Day of Date: 02/21/17 - Subjective Subjective: WAS ADMITTED FOR CHF AND RESPIRATORY DISTRESS. TODAY, SHE IS ALERT AND ORIENTED, SITTING UP IN CHAIR ON MORNING ROUNDS. PATIENT'S IS AT BEDSIDE. PATIENT CONTINUES WITH SHORTNESS OF BREATH. SHE IS CURRENTLY UTILIZING OXYGEN VIA NASAL CANNULA AT 3L/MIN. PATIENT CONTINUES WITH A NON- PRODUCTIVE COUGH. PATIENT IS NOTED WITH SHALLOW BREATHING AT THIS TIME. PATIENT REPORTS THAT SHE HAS A DIFFICULT TIME TAKING DEEP BREATHS. PATIENT HAS A HISTORY OF SLEEP APNEA. ON EXAMINATION, LUNGS WERE NOTED WITH WHEEZING BILATERALLY TO AUSCULTATION. ABDOMEN IS ROUND, SOFT, AND NON-TENDER WITH NORMAL BOWEL SOUNDS NOTED IN ALL QUADRANTS. SHE CONTINUES WITH ERRYTHEMA AND 3+ PITTING EDEMA TO BILATERAL LOWER EXTREMITIES. HER VITAL SIGNS THIS MORNING ARE 97.0-66-20-100%-102/57. PATIENT IS HYPERCAPNIC, WITH CARBON DIOXIDE LEVELS GREATER THAN 45 THIS MORNING. ABNORMAL LAB VALUES THIS MORNING INCLUDE THE FOLLOWING: WBC 9, PLT COUNT 106, CARBON DIOXIDE >45, GLUCOSE 111, CALCIUM 8.4, ALT 11, ALBUMIN 2.5. BLOOD CULTURES REPORT NO GROWTH. SPUTUM CULTURES REPORT NORMAL ANABELLA. CHEST XRAY REPORTS CARDIOMEGALY WITHOUT CHF. LUNGS CLEAR. TODAY, WE WILL CONTINUE WITH CURRENT PLAN OF CARE. WE WILL CONTINUE USE OF HOME CPAP/ BIPAP DUE TO OBESITY HYPOVENTILATION, CHF, AND ACUTE ON CHRONIC HYPERCAPNEIC RESPIRATORY FAILURE. WE WILL CONSULT WITH [facility] TO QUALIFY PATIENT FOR TRIOLOGY AT HOME. OTHERWISE, WE PLAN TO FOLLOW UP WITH AM LABS AND CONTINUE TO MONITOR PATIENT. - Past Medical Family Social History Past Med/Fam/Surg Hx: No changes since H&P Allergies: Allergies meperidine [From Demerol] Allergy (Verified 02/19/17 02:07) - Review of Systems ROS: No change since H&P - Vital Signs and I&O's Vital Signs: Temperature 97.6 F Pulse Rate [Left] 69 Pulse Rate 93 Respiratory Rate 20 Blood Pressure [Left Arm] 177/79 Blood Pressure [Right Arm] 105/55 Blood Pressure 126/68 O2 Sat by Pulse Oximetry 93 Intake and Output: Intake & Output 02/19/17 02/20/17 02/21/17 02/22/17 11:59 11:59 11:59 11:59 Intake Total 345 1720 2414 1896 Output Total 350 3465 2655 [address] [place] [phone] - Physical Exam Oriented: Normal Eyes: Normal. negative: Blurred Vision, Diplopia, Photophobia Ear: Normal. negative: Swelling, Ecchymosis, Hemotypanum, Abrasion, Laceration Nose: Discharge Throat: Normal Respiratory: Generalized, Wheezes Cardiovascular: Normal, Tachycardia, Edema (BILATER LOWER EXTREMITY EDEMA ) : Normal. negative: Testicular Pain, Bleeding, Auscultation: Bowel Sounds: Normal. negative: High Pitched Palpation: Normal Tenderness: Normal. negative: Rebound, Guarding, Rigidity Skin: Rash, Papular, Red, Tender (BILATERAL LOWER EXTREMITY CELLULITIS ), Wound Musculoskeletal: Right, Left, Leg, Swelling, Tender Psychiatric: Normal Mood Description: Calm Affect: Normal Speech Pattern: Clear - Laboratory and Diagnostics Result Diagrams: 02/22/17 05:20 02/22/17 05:20 Labs: 02/20/17 21:36 Sputum - Expectorated Sputum Sputum Culture - Final 02/20/17 21:36 Sputum - Expectorated Sputum - Final 02/19/17 05:55 Blood Blood Culture - Preliminary 02/19/17 05:45 Blood Blood Culture - Preliminary Laboratory WBC 6.9 X10^3/uL (3.6-10.0) 02/22/17 05:20 RBC 4.20 X10^6/uL (3.5-5.4) 02/22/17 05:20 Hgb 12.1 g/dL (12.0-16.0) 02/22/17 05:20 Hct 36.3 % (36.0-47.0) 02/22/17 05:20 MCV 86.4 fL (80.0-100.0) 02/22/17 05:20 MCH 28.8 pg (27.0-34.0) 02/22/17 05:20 MCHC 33.3 g/dL (33.0-35.0) 02/22/17 05:20 RDW 14.6 % (11.6-16.5) 02/22/17 05:20 Plt Count 113 X10^3/uL (150.0-450.0) L 02/22/17 05:20 Plt Count Comment Decreased (ADEQUATE) A 02/19/17 01:35 MPV 9.8 fL (7.4-11.0) 02/22/17 05:20 Neut % 67.7 % (42.0-75.0) 02/22/17 05:20 Lymph % 19.2 % (21.0-51.0) L 02/22/17 05:20 [place] % 11.7 % (0.0-13.0) 02/22/17 05:20 Eos % 0.9 % (0.9-2.9) 02/22/17 05:20 Baso % 0.5 % (0.2-1.0) 02/22/17 05:20 Neut # 4.7 x10^3/uL (2.2-4.8) 02/22/17 05:20 Lymph # 1.3 X10^3/uL (1.3-2.9) 02/22/17 05:20 [place] # 0.8 x10^3/uL (0.3-0.8) 02/22/17 05:20 Eos # 0.1 x10^3/uL (0.0-0.2) 02/22/17 05:20 Baso # 0.0 X10^3/uL (0.0-0.1) 02/22/17 05:20 Absolute Nucleated RBC 0.1 /100WBC 02/22/17 05:20 Total Counted 100 02/19/17 01:35 Neutrophils % (Manual) 83 % (39-76) H 02/19/17 01:35 Band Neutrophils % 8 % (0-10) 02/19/17 01:35 Lymphocytes % (Manual) 5 % (13-43) L 02/19/17 01:35 Monocytes % (Manual) 4 % (4-9) 02/19/17 01:35 Plt Morphology Comment Normal (NORMAL) 02/19/17 01:35 RBC Morphology Abnormal (NORMAL) A 02/19/17 01:35 Stomatocytes Noted 02/19/17 01:35 INR Target Range - 02/19/17 01:35 INR 1.45 (0.8-1.3) H 02/19/17 01:35 PTT 36.0 SECONDS (22.9-36.5) 02/19/17 01:35 PTT Comment - 02/19/17 01:35 Sample Site R rad 02/19/17 01:56 ABG pH 7.480 (7.35-7.45) H 02/19/17 01:56 ABG pCO2 50.0 mmHg (35.0-45.0) H 02/19/17 01:56 ABG pO2 78.0 mmHg (80.0-100.0) L 02/19/17 01:56 ABG HCO3 37.2 mmol/L (22-26) H* 02/19/17 01:56 ABG O2 Saturation 96.0 % (90-100) 02/19/17 01:56 ABG Base Excess 11.9 mmol/L (-2.0-2.0) H 02/19/17 01:56 Jose Angel Test Pos 02/19/17 01:56 A-a Gradient 59.0 mmHg 02/19/17 01:56 FiO2 28.000 02/19/17 01:56 Blood Gas Comments [facility] 02/19/17 01:56 Sodium 140 mmol/L (136-145) 02/22/17 05:20 Corrected Sodium 140 mmol/L (136-145) 02/22/17 05:20 Potassium 3.0 mmol/L (3.5-5.1) L* 02/22/17 05:20 Chloride 98 mmol/L (98-107) 02/22/17 05:20 Carbon Dioxide > 45.0 mmol/L (21-32) H* 02/22/17 05:20 BUN 12 mg/dL (7-18) 02/22/17 05:20 Creatinine 0.71 mg/dL (0.55-1.02) 02/22/17 05:20 Est GFR (MDRD) Af Amer > 60 (>60) 02/22/17 05:20 Est GFR (MDRD) Non-Af > 60 (>60) 02/22/17 05:20 Glucose 119 mg/dL (65-99) H 02/22/17 05:20 Lactic Acid 1.0 mmol/L (0.4-2.0) 02/19/17 16:27 Calcium 8.4 mg/dL (8.5-10.1) L 02/22/17 05:20 Corrected Calcium 9.7 mg/dL (8.5-10.1) 02/22/17 05:20 Total Bilirubin 0.40 mg/dL (0.2-1.0) 02/22/17 05:20 AST 15 Units/L (15-37) 02/22/17 05:20 ALT 8 Units/L (12-78) L 02/22/17 05:20 Alkaline Phosphatase 82 Units/L (46-116) 02/22/17 05:20 Creatine Kinase 209 Units/L (26-192) H 02/20/17 02:25 CK-MB (CK-2) < 1.0 ng/mL (0-4.0) 02/20/17 02:25 CK/CKMB % Calc 0.5 % (<4) 02/20/17 02:25 Troponin I < 0.02 ng/mL (0-1.5) 02/20/17 02:25 B-Natriuretic Peptide 61.6 pg/mL (0-79) 02/20/17 02:25 Total Protein 6.2 g/dL (6.4-8.2) L 02/22/17 05:20 Albumin 2.4 g/dL (3.4-5.0) L 02/22/17 05:20 Globulin 3.8 g/dL (2.5-4.5) 02/22/17 05:20 Albumin/Globulin Ratio 0.6 Ratio (1.1-2.1) L 02/22/17 05:20 Specimen Type Catherized urine 02/19/17 07:22 Urine Color Yellow (YELLOW) 02/19/17 07:22 Urine Appearance Slightly hazy (CLEAR) 02/19/17 07:22 Urine pH 5.0 (5.0 - 8.0) 02/19/17 07:22 Ur Specific [place] 1.010 (1.000-1.030) 02/19/17 07:22 Urine Protein Negative (NEGATIVE) 02/19/17 07:22 Urine Glucose (UA) Negative (NEGATIVE) 02/19/17 07:22 Urine Ketones Negative (NEGATIVE) 02/19/17 07:22 Urine Occult Blood 1+ (NEGATIVE) 02/19/17 07:22 Urine Nitrite Negative (NEGATIVE) 02/19/17 07:22 Urine Bilirubin Negative (NEGATIVE) 02/19/17 07:22 Urine Urobilinogen Normal (NORMAL) 02/19/17 07:22 Ur Leukocyte Esterase Negative (NEGATIVE) 02/19/17 07:22 Urine RBC 0-3 /HPF (NEGATIVE) 02/19/17 07:22 Urine WBC 0-3 /HPF (NEGATIVE) 02/19/17 07:22 Ur Squamous Epith Cells Few /HPF (NEGATIVE) 02/19/17 07:22 Amorphous Sediment Trace /HPF (NEGATIVE) 02/19/17 07:22 Urine Bacteria Trace /HPF (NEGATIVE) 02/19/17 07:22 Ur Culture Indicated? No/not indicated 02/19/17 07:22 - Plan (1) CHF (congestive heart failure) Status: Acute Qualifiers: Congestive heart failure type: unspecified congestive heart failure type Congestive heart failure chronicity: acute on chronic Qualified Code(s): I50.9 - Heart failure, unspecified Plan: supplemental oxygen, home bipap/cpap, lasix 40mg IV bid, continue to monitor labs and chest xray, obtain ECHO (2) Acute and chronic respiratory failure with hypercapnia Status: Acute Plan: CONTINUE BIPAP, CONTINUE SUPPLEMENTAL OXYGEN, CONSULT [facility] FOR TRILOGY AT HOME, CONTINUE TO MONITOR LABS AND PATIENT (3) Obesity hypoventilation syndrome Status: Acute Plan: CONTINUE BIPAP, CONTINUE SUPPLEMENTAL OXYGEN, CONSULT [facility] FOR TRILOGY AT HOME, CONTINUE TO MONITOR LABS AND PATIENT. (4) Respiratory distress Status: Acute Plan: supplemental oxygen, home bipap/cpap, DUONEB QID, lasix 40mg IV bid, continue to monitor labs and chest xray (5) Stasis dermatitis of both legs Status: Chronic Plan: rocephin 1gm iv daily, continue to monitor
[2017-02-22 14:02] VITALS: BP 122/60
--- NOTE | 2017-02-26 14:41 | PCM.PROG ---
Progress Note - Progress Note for Day of Date: 02/21/17 - Subjective Subjective: WAS ADMITTED FOR CHF AND RESPIRATORY DISTRESS. TODAY, SHE IS ALERT AND ORIENTED, SITTING UP IN CHAIR ON MORNING ROUNDS. PATIENT'S IS AT BEDSIDE. PATIENT CONTINUES WITH SHORTNESS OF BREATH. SHE IS CURRENTLY UTILIZING OXYGEN VIA NASAL CANNULA AT 3L/MIN. PATIENT CONTINUES WITH A NON- PRODUCTIVE COUGH. PATIENT IS NOTED WITH SHALLOW BREATHING AT THIS TIME. PATIENT REPORTS THAT SHE HAS A DIFFICULT TIME TAKING DEEP BREATHS. PATIENT HAS A HISTORY OF SLEEP APNEA. ON EXAMINATION, LUNGS WERE NOTED WITH WHEEZING BILATERALLY TO AUSCULTATION. ABDOMEN IS ROUND, SOFT, AND NON-TENDER WITH NORMAL BOWEL SOUNDS NOTED IN ALL QUADRANTS. SHE CONTINUES WITH ERRYTHEMA AND 3+ PITTING EDEMA TO BILATERAL LOWER EXTREMITIES. HER VITAL SIGNS THIS MORNING ARE 97.0-66-20-100%-102/57. PATIENT IS HYPERCAPNIC, WITH CARBON DIOXIDE LEVELS GREATER THAN 45 THIS MORNING. ABNORMAL LAB VALUES THIS MORNING INCLUDE THE FOLLOWING: WBC 9, PLT COUNT 106, CARBON DIOXIDE >45, GLUCOSE 111, CALCIUM 8.4, ALT 11, ALBUMIN 2.5. BLOOD CULTURES REPORT NO GROWTH. SPUTUM CULTURES REPORT NORMAL ANABELLA. CHEST XRAY REPORTS CARDIOMEGALY WITHOUT CHF. LUNGS CLEAR. TODAY, WE WILL CONTINUE WITH CURRENT PLAN OF CARE. WE WILL CONTINUE USE OF CPAP/BIPAP DUE TO OBESITY HYPOVENTILATION, CHF, AND ACUTE ON CHRONIC HYPERCAPNEIC RESPIRATORY FAILURE. WE WILL CONSULT WITH [facility] TO QUALIFY PATIENT FOR TRIOLOGY AT HOME. OTHERWISE, WE PLAN TO FOLLOW UP WITH AM LABS AND CONTINUE TO MONITOR PATIENT. - Past Medical Family Social History Past Med/Fam/Surg Hx: No changes since H&P Allergies: Allergies meperidine [From Demerol] Allergy (Verified 02/19/17 02:07) - Review of Systems ROS: No change since H&P - Vital Signs and I&O's Vital Signs: Temperature 99.0 F Pulse Rate [Left] 56 Pulse Rate 93 Respiratory Rate 37 Blood Pressure [Left Arm] 122/60 Blood Pressure [Right Arm] 105/55 Blood Pressure 126/68 O2 Sat by Pulse Oximetry 100 - Physical Exam Oriented: Normal Eyes: Normal. negative: Blurred Vision, Diplopia, Photophobia Ear: Normal. negative: Swelling, Ecchymosis, Hemotypanum, Abrasion, Laceration Nose: Discharge Throat: Normal Respiratory: Generalized, Wheezes Cardiovascular: Normal, Tachycardia, Edema (BILATER LOWER EXTREMITY EDEMA ) : Normal. negative: Testicular Pain, Bleeding, Auscultation: Bowel Sounds: Normal. negative: High Pitched Palpation: Normal Tenderness: Normal. negative: Rebound, Guarding, Rigidity Skin: Rash, Papular, Red, Tender (BILATERAL LOWER EXTREMITY CELLULITIS ), Wound Musculoskeletal: Right, Left, Leg, Swelling, Tender Psychiatric: Normal Mood Description: Calm Affect: Normal Speech Pattern: Clear - Laboratory and Diagnostics Result Diagrams: 02/22/17 05:20 02/22/17 05:20 Labs: 02/19/17 05:55 Blood Blood Culture - Final 02/19/17 05:45 Blood Blood Culture - Final 02/20/17 21:36 Sputum - Expectorated Sputum Sputum Culture - Final 02/20/17 21:36 Sputum - Expectorated Sputum - Final Laboratory WBC 6.9 X10^3/uL (3.6-10.0) 02/22/17 05:20 RBC 4.20 X10^6/uL (3.5-5.4) 02/22/17 05:20 Hgb 12.1 g/dL (12.0-16.0) 02/22/17 05:20 Hct 36.3 % (36.0-47.0) 02/22/17 05:20 MCV 86.4 fL (80.0-100.0) 02/22/17 05:20 MCH 28.8 pg (27.0-34.0) 02/22/17 05:20 MCHC 33.3 g/dL (33.0-35.0) 02/22/17 05:20 RDW 14.6 % (11.6-16.5) 02/22/17 05:20 Plt Count 113 X10^3/uL (150.0-450.0) L 02/22/17 05:20 Plt Count Comment Decreased (ADEQUATE) A 02/19/17 01:35 MPV 9.8 fL (7.4-11.0) 02/22/17 05:20 Neut % 67.7 % (42.0-75.0) 02/22/17 05:20 Lymph % 19.2 % (21.0-51.0) L 02/22/17 05:20 [place] % 11.7 % (0.0-13.0) 02/22/17 05:20 Eos % 0.9 % (0.9-2.9) 02/22/17 05:20 Baso % 0.5 % (0.2-1.0) 02/22/17 05:20 Neut # 4.7 x10^3/uL (2.2-4.8) 02/22/17 05:20 Lymph # 1.3 X10^3/uL (1.3-2.9) 02/22/17 05:20 [place] # 0.8 x10^3/uL (0.3-0.8) 02/22/17 05:20 Eos # 0.1 x10^3/uL (0.0-0.2) 02/22/17 05:20 Baso # 0.0 X10^3/uL (0.0-0.1) 02/22/17 05:20 Absolute Nucleated RBC 0.1 /100WBC 02/22/17 05:20 Total Counted 100 02/19/17 01:35 Neutrophils % (Manual) 83 % (39-76) H 02/19/17 01:35 Band Neutrophils % 8 % (0-10) 02/19/17 01:35 Lymphocytes % (Manual) 5 % (13-43) L 02/19/17 01:35 Monocytes % (Manual) 4 % (4-9) 02/19/17 01:35 Plt Morphology Comment Normal (NORMAL) 02/19/17 01:35 RBC Morphology Abnormal (NORMAL) A 02/19/17 01:35 Stomatocytes Noted 02/19/17 01:35 INR Target Range - 02/19/17 01:35 INR 1.45 (0.8-1.3) H 02/19/17 01:35 PTT 36.0 SECONDS (22.9-36.5) 02/19/17 01:35 PTT Comment - 02/19/17 01:35 Sample Site R rad 02/19/17 01:56 ABG pH 7.480 (7.35-7.45) H 02/19/17 01:56 ABG pCO2 50.0 mmHg (35.0-45.0) H 02/19/17 01:56 ABG pO2 78.0 mmHg (80.0-100.0) L 02/19/17 01:56 ABG HCO3 37.2 mmol/L (22-26) H* 02/19/17 01:56 ABG O2 Saturation 96.0 % (90-100) 02/19/17 01:56 ABG Base Excess 11.9 mmol/L (-2.0-2.0) H 02/19/17 01:56 Jose Angel Test Pos 02/19/17 01:56 A-a Gradient 59.0 mmHg 02/19/17 01:56 FiO2 28.000 02/19/17 01:56 Blood Gas Comments [facility] 02/19/17 01:56 Sodium 140 mmol/L (136-145) 02/22/17 05:20 Corrected Sodium 140 mmol/L (136-145) 02/22/17 05:20 Potassium 3.0 mmol/L (3.5-5.1) L* 02/22/17 05:20 Chloride 98 mmol/L (98-107) 02/22/17 05:20 Carbon Dioxide > 45.0 mmol/L (21-32) H* 02/22/17 05:20 BUN 12 mg/dL (7-18) 02/22/17 05:20 Creatinine 0.71 mg/dL (0.55-1.02) 02/22/17 05:20 Est GFR (MDRD) Af Amer > 60 (>60) 02/22/17 05:20 Est GFR (MDRD) Non-Af > 60 (>60) 02/22/17 05:20 Glucose 119 mg/dL (65-99) H 02/22/17 05:20 Lactic Acid 1.0 mmol/L (0.4-2.0) 02/19/17 16:27 Calcium 8.4 mg/dL (8.5-10.1) L 02/22/17 05:20 Corrected Calcium 9.7 mg/dL (8.5-10.1) 02/22/17 05:20 Total Bilirubin 0.40 mg/dL (0.2-1.0) 02/22/17 05:20 AST 15 Units/L (15-37) 02/22/17 05:20 ALT 8 Units/L (12-78) L 02/22/17 05:20 Alkaline Phosphatase 82 Units/L (46-116) 02/22/17 05:20 Creatine Kinase 209 Units/L (26-192) H 02/20/17 02:25 CK-MB (CK-2) < 1.0 ng/mL (0-4.0) 02/20/17 02:25 CK/CKMB % Calc 0.5 % (<4) 02/20/17 02:25 Troponin I < 0.02 ng/mL (0-1.5) 02/20/17 02:25 B-Natriuretic Peptide 61.6 pg/mL (0-79) 02/20/17 02:25 Total Protein 6.2 g/dL (6.4-8.2) L 02/22/17 05:20 Albumin 2.4 g/dL (3.4-5.0) L 02/22/17 05:20 Globulin 3.8 g/dL (2.5-4.5) 02/22/17 05:20 Albumin/Globulin Ratio 0.6 Ratio (1.1-2.1) L 02/22/17 05:20 Specimen Type Catherized urine 02/19/17 07:22 Urine Color Yellow (YELLOW) 02/19/17 07:22 Urine Appearance Slightly hazy (CLEAR) 02/19/17 07:22 Urine pH 5.0 (5.0 - 8.0) 02/19/17 07:22 Ur Specific [place] 1.010 (1.000-1.030) 02/19/17 07:22 Urine Protein Negative (NEGATIVE) 02/19/17 07:22 Urine Glucose (UA) Negative (NEGATIVE) 02/19/17 07:22 Urine Ketones Negative (NEGATIVE) 02/19/17 07:22 Urine Occult Blood 1+ (NEGATIVE) 02/19/17 07:22 Urine Nitrite Negative (NEGATIVE) 02/19/17 07:22 Urine Bilirubin Negative (NEGATIVE) 02/19/17 07:22 Urine Urobilinogen Normal (NORMAL) 02/19/17 07:22 Ur Leukocyte Esterase Negative (NEGATIVE) 02/19/17 07:22 Urine RBC 0-3 /HPF (NEGATIVE) 02/19/17 07:22 Urine WBC 0-3 /HPF (NEGATIVE) 02/19/17 07:22 Ur Squamous Epith Cells Few /HPF (NEGATIVE) 02/19/17 07:22 Amorphous Sediment Trace /HPF (NEGATIVE) 02/19/17 07:22 Urine Bacteria Trace /HPF (NEGATIVE) 02/19/17 07:22 Ur Culture Indicated? No/not indicated 02/19/17 07:22 - Plan (1) CHF (congestive heart failure) Status: Acute Qualifiers: Congestive heart failure type: unspecified congestive heart failure type Congestive heart failure chronicity: acute on chronic Qualified Code(s): I50.9 - Heart failure, unspecified Plan: supplemental oxygen, home bipap/cpap, lasix 40mg IV bid, continue to monitor labs and chest xray, obtain ECHO (2) Acute and chronic respiratory failure with hypercapnia Status: Acute Plan: CONTINUE BIPAP, CONTINUE SUPPLEMENTAL OXYGEN, CONSULT [facility] FOR TRILOGY AT HOME, CONTINUE TO MONITOR LABS AND PATIENT (3) Obesity hypoventilation syndrome Status: Acute Plan: CONTINUE BIPAP, CONTINUE SUPPLEMENTAL OXYGEN, CONSULT [facility] FOR TRILOGY AT HOME, CONTINUE TO MONITOR LABS AND PATIENT. (4) Respiratory distress Status: Acute Plan: supplemental oxygen, home bipap/cpap, DUONEB QID, lasix 40mg IV bid, continue to monitor labs and chest xray (5) Stasis dermatitis of both legs Status: Chronic Plan: rocephin 1gm iv daily, continue to monitor
== END 2017-02-22 16:20 | disposition home or self-care (01) | DRG 291 ==
LOC: ER 01:36 → ICU 03:57
PROVIDERS: ADMIT Internal Medicine; ATTEND Internal Medicine
DX: I50.9 Heart failure, unspecified (principal); J96.22 Acute and chronic respiratory failure with hypercapnia; E66.2 Morbid (severe) obesity with alveolar hypoventilation; I87.2 Venous insufficiency (chronic) (peripheral); R07.89 Other chest pain; E78.5 Hyperlipidemia, unspecified; I10 Essential (primary) hypertension; I48.2 Chronic atrial fibrillation; G47.30 Sleep apnea, unspecified
CPT/HCPCS: 36415; 36600; 71010; 80053; 81001; 82550; 82553; 82803; 83605; 83880; 84484; 85025; 85610; 85730; 87040; 87070; 87205; 93005; 93306; 94640; 96365; 96374; 96375; 97535; 99284; A4222; J0696; J1450; J1940; J2405; J3480; J7620

== ENCOUNTER → 2017-04-03 | Outpatient (CLI) | payer OTHER, MEDICARE ==
[2017-04-03 07:02] LABS: BASOPHILS % (AUTO) 0.8 % (0.2-1.0); EOSINOPHILS # (AUTO) 0.1 x10^3/uL (0.0-0.2); EOSINOPHILS % (AUTO) 1.4 % (0.9-2.9); HEMATOCRIT 41.9 % (36.0-47.0); HEMOGLOBIN 13.8 g/dL (12.0-16.0); LYMPHOCYTES # (AUTO) 1.7 X10^3/uL (1.3-2.9); LYMPHOCYTES % (AUTO) 32.5 % (21.0-51.0); MEAN CORPUSCULAR HEMOGLOBIN 28.6 pg (27.0-34.0); MEAN CORPUSCULAR HGB CONC 32.8 g/dL (33.0-35.0); MEAN PLATELET VOLUME 9.7 fL (7.4-11.0); MONOCYTES # (AUTO) 0.5 x10^3/uL (0.3-0.8); MONOCYTES % (AUTO) 9.9 % (0.0-13.0); NEUTROPHILS # (AUTO) 2.9 x10^3/uL (2.2-4.8); NEUTROPHILS % (AUTO) 55.4 % (42.0-75.0); PLATELET COUNT 163 X10^3/uL (150.0-450.0); RED BLOOD COUNT 4.82 X10^6/uL (3.5-5.4); RED CELL DISTRIBUTION WIDTH 14.2 % (11.6-16.5); WHITE BLOOD COUNT 5.3 X10^3/uL (3.6-10.0)
[2017-04-03 07:10] LABS: ALANINE AMINOTRANSFERASE 22 Units/L (12-78); ALBUMIN 3.4 g/dL (3.4-5.0); ALKALINE PHOSPHATASE 102 Units/L (46-116); ASPARTATE AMINO TRANSFERASE 15 Units/L (15-37); BLOOD UREA NITROGEN 17 mg/dL (7-18); CALCIUM 8.5 mg/dL (8.5-10.1); CARBON DIOXIDE 38.7 mmol/L (21-32); CHLORIDE 100 mmol/L (98-107); COR NA(FOR HYPERGLY) 144 mmol/L (136-145); CREATININE 0.73 mg/dL (0.55-1.02); SODIUM 142 mmol/L (136-145); eGFR BLACK RACES > 60 (>60); eGFR NON BLACK RACES > 60 (>60)
== END ==
LOC: LAB 06:39
PROVIDERS: ATTEND Internal Medicine
DX: E87.6 Hypokalemia (principal); N18.9 Chronic kidney disease, unspecified
CPT/HCPCS: 36415; 80053; 85025

== ENCOUNTER → 2017-09-13 | Outpatient (CLI) | payer OTHER, MEDICARE ==
--- NOTE | 2017-09-14 09:23 | MRI ---
MR left lower leg without contrast Indication: Left leg pain and edema Comparison: No recent similar prior imaging Technique: Multiplanar multi sequence imaging through the left tibia and fibula/calf without contrast Findings: There is massive edema in the subcutaneous soft tissues. Postsurgical changes seen in the k nee joint with hardware artifact limiting sensitivity year somewhat. There is global mild fatty atrop hy of the calf muscles. Ankle joint appears intact with minimal degenerative change. Bone marrow sign al is otherwise relatively normal without fracture seen. There is large fluid collection with mixed h eterogeneous T2 signal combo hyper and hypo intense compressing the medial soleus, see axial image 22 . There is minimal high T1 signal, confirming hematoma. This large hematoma tracks along the myotendi nous junction of the soleus muscle and along the medial myotendinous junction of the gastrocnemius mu scle belly. This measures approximately 6.7 x 3.1 x 21.2 cm on axial image 20 and coronal image 17 (A P, trans, cc). There is feathery appearance of the muscle and indistinctness of the myotendinous junction at the pro ximal soleus see axial images 12 through 15, and along the entire myotendinous junction of the medial soleus from axial image 39 through 15 more centrally. The medial gastrocnemius myotendinous junction is torn with high signal in the muscle belly and indistinct appearance of the tendon see axial image s 18-26. The distal lower Achilles appears intact. Impression: 1. 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 2. High-grade myotendinous junction tearing with portions of the distal tendon completely disrupted a nd high intramuscular signal seen at the medial gastrocnemius distally. 3. Massive hematoma compressing the soleus, located in the medial aspect of the posterior car compart ment between the soleus and gastrocnemius muscle bellies. Correlate clinically for any evidence of co mpartment syndrome 4. Extensive subcutaneous edema. Reported By:
== END | disposition home or self-care (01) ==
LOC: RAD 15:58
PROVIDERS: ATTEND Internal Medicine
DX: R06.9 Unspecified abnormalities of breathing (principal); M79.605 Pain in left leg; R06.00 Dyspnea, unspecified
CPT/HCPCS: 73718

== ENCOUNTER 2018-11-14 08:42 | Inpatient (IN) ==
[2018-11-14] MEDS ORDERED: PHARMACY CONSULT - VANCOMYCIN XX SCH (10:00)
[2018-11-14] MEDS ORDERED: NS 1000 ML 1,000 ML IV SCH (10:00)
[2018-11-14 10:39] LABS: BASOPHILS % (AUTO) 0.4 % (0.2-1.0); EOSINOPHILS % (AUTO) 0.6 % (0.9-2.9); HEMATOCRIT 42.4 % (36.0-47.0); HEMOGLOBIN 14.2 g/dL (12.0-16.0); LYMPHOCYTES # (AUTO) 1.2 X10^3/uL (1.3-2.9); LYMPHOCYTES % (AUTO) 16.9 % (21.0-51.0); MEAN CORPUSCULAR HEMOGLOBIN 29.5 pg (27.0-34.0); MEAN CORPUSCULAR HGB CONC 33.4 g/dL (33.0-35.0); MEAN CORPUSCULAR VOLUME 88.4 fL (80.0-100.0); MEAN PLATELET VOLUME 9.8 fL (7.4-11.0); MONOCYTES # (AUTO) 0.6 x10^3/uL (0.3-0.8); MONOCYTES % (AUTO) 9.2 % (0.0-13.0); NEUTROPHILS % (AUTO) 72.9 % (42.0-75.0); PLATELET COUNT 140 X10^3/uL (150.0-450.0); RED CELL DISTRIBUTION WIDTH 14.1 % (11.6-16.5); WHITE BLOOD COUNT 6.9 X10^3/uL (3.6-10.0)
[2018-11-14 10:44] LABS: ALANINE AMINOTRANSFERASE 21 Units/L (12-78); ALBUMIN 3.4 g/dL (3.4-5.0); ALKALINE PHOSPHATASE 66 Units/L (46-116); ASPARTATE AMINO TRANSFERASE 12 Units/L (15-37); BLOOD UREA NITROGEN 10 mg/dL (7-18); CALCIUM 8.7 mg/dL (8.5-10.1); CARBON DIOXIDE 33.9 mmol/L (21-32); CHLORIDE 99 mmol/L (98-107); CREATININE 0.76 mg/dL (0.55-1.02); SODIUM 140 mmol/L (136-145); TOTAL PROTEIN 7.2 g/dL (6.4-8.2); eGFR NON BLACK RACES > 60 (>60)
[2018-11-14] MEDS ORDERED: POTASSIUM CHL 40 MEQ/NS 0.45% 500 ML IV PRN (10:47)
[2018-11-14] MEDS ORDERED: KLOR-CON PO PRN (10:47)
[2018-11-14] MEDS ORDERED: K-RIDER 10 MEQ/NS 100 ML 10 MEQ/100 ML BAG IV PRN (10:47)
[2018-11-14] MEDS ORDERED: K-DUR TAB 20 MEQ PO PRN (10:47)
[2018-11-14] MEDS ORDERED: POTASSIUM CHLORIDE LIQ 20 MEQ UDC PO PRN (10:47)
[2018-11-14] MEDS ORDERED: POTASSIUM CHL 60 MEQ/NS 0.45% 500 ML IV PRN (10:47)
[2018-11-14] MEDS ORDERED: MICRO K EXTEN CAP 10 MEQ PO PRN (10:47)
[2018-11-14] MEDS ORDERED: NS 250 ML IV 250 ML ONE (12:24)
[2018-11-14] MEDS: LEVAQUIN PREMIX IV 500 MG 500 MG/100 ML BAG IV SCH (12:35)
[2018-11-14] MEDS: MAGNESIUM SULFATE 1 GRAM/100 mL PREMIX 1 GM/100 ML BAG IV PRN ×4 (12:37→16:41)
[2018-11-14] MEDS: VANCOMYCIN HCL 1 GM VIAL 1 G in D5W 250 ML IV 250 ML IV SCH ×2 (14:07→21:06)
[2018-11-14] MEDS ORDERED: TYLENOL 325 MG TAB PO PRN (15:17)
[2018-11-14] MEDS ORDERED: TYLENOL 325 MG TAB PO ONE (15:21)
[2018-11-14] MEDS ORDERED: GLUCOPHAGE ONE (20:11)
[2018-11-14] MEDS: ELIQUIS PO SCH (20:50)
[2018-11-14] MEDS: SINEMET (PLAIN) 25/250 MG PO SCH (20:50)
[2018-11-14] MEDS: CRESTOR TAB 10 MG PO SCH (20:51)
[2018-11-14] MEDS: PEPCID TAB 20 MG PO SCH (20:51)
[2018-11-14] MEDS: MICRO K EXTEN CAP 10 MEQ PO SCH (20:51)
[2018-11-14] MEDS: PROTONIX TAB 40 MG PO SCH (20:51)
[2018-11-14] MEDS: ASPIRIN EC 81 MG PO SCH (20:51)
[2018-11-14] MEDS: GLUCOPHAGE PO SCH (20:52)
[2018-11-14] MEDS: LASIX PO SCH (20:52)
[2018-11-14] MEDS: RESTORIL CAP 15 MG PO PRN (21:31)
[2018-11-14] MEDS: BETAPACE AF PO SCH (21:31)
[2018-11-15] MEDS: VANCOMYCIN HCL 1 GM VIAL 1 G in D5W 250 ML IV 250 ML IV SCH ×3 (05:20→21:02)
[2018-11-15 05:42] LABS: BASOPHILS % (AUTO) 0.6 % (0.2-1.0); EOSINOPHILS # (AUTO) 0.1 x10^3/uL (0.0-0.2); EOSINOPHILS % (AUTO) 1.5 % (0.9-2.9); HEMATOCRIT 39.3 % (36.0-47.0); HEMOGLOBIN 13.2 g/dL (12.0-16.0); LYMPHOCYTES # (AUTO) 1.1 X10^3/uL (1.3-2.9); LYMPHOCYTES % (AUTO) 21.2 % (21.0-51.0); MEAN CORPUSCULAR HGB CONC 33.7 g/dL (33.0-35.0); MEAN CORPUSCULAR VOLUME 89.1 fL (80.0-100.0); MEAN PLATELET VOLUME 10.7 fL (7.4-11.0); MONOCYTES # (AUTO) 0.6 x10^3/uL (0.3-0.8); NEUTROPHILS # (AUTO) 3.2 x10^3/uL (2.2-4.8); NEUTROPHILS % (AUTO) 63.7 % (42.0-75.0); PLATELET COUNT 130 X10^3/uL (150.0-450.0); RED BLOOD COUNT 4.41 X10^6/uL (3.5-5.4)
[2018-11-15 05:46] LABS: ALANINE AMINOTRANSFERASE 13 Units/L (12-78); ALBUMIN 2.9 g/dL (3.4-5.0); ALKALINE PHOSPHATASE 60 Units/L (46-116); ASPARTATE AMINO TRANSFERASE 12 Units/L (15-37); BLOOD UREA NITROGEN 6 mg/dL (7-18); CALCIUM 8.1 mg/dL (8.5-10.1); CARBON DIOXIDE 34.6 mmol/L (21-32); CHLORIDE 101 mmol/L (98-107); CREATININE 0.62 mg/dL (0.55-1.02); SODIUM 139 mmol/L (136-145); TOTAL PROTEIN 6.5 g/dL (6.4-8.2); eGFR NON BLACK RACES > 60 (>60)
[2018-11-15 05:55] LABS: HEMOGLOBIN A1C 6.9 %
[2018-11-15 06:43] VITALS: BMI 61.0
[2018-11-15] MEDS ORDERED: GLUCOPHAGE ONE ×2 (08:17→19:56)
[2018-11-15] MEDS: DIFLUCAN PO SCH (09:02)
[2018-11-15] MEDS: MICRO K EXTEN CAP 10 MEQ PO SCH ×2 (09:03→20:53)
[2018-11-15] MEDS: GLUCOPHAGE PO SCH ×2 (09:04→20:52)
[2018-11-15] MEDS: LASIX PO SCH ×2 (09:04→20:54)
[2018-11-15] MEDS: BETAPACE AF PO SCH ×2 (09:04→20:53)
[2018-11-15] MEDS: PROTONIX TAB 40 MG PO SCH ×2 (09:04→20:52)
[2018-11-15] MEDS: PEPCID TAB 20 MG PO SCH ×2 (09:04→20:53)
[2018-11-15] MEDS: SINEMET (PLAIN) 25/250 MG PO SCH ×2 (09:04→20:53)
[2018-11-15] MEDS: ELIQUIS PO SCH ×2 (09:04→20:54)
[2018-11-15] MEDS: ALDACTONE TAB 25 MG PO SCH (09:04)
[2018-11-15] MEDS: LEVAQUIN PREMIX IV 500 MG 500 MG/100 ML BAG IV SCH (09:05)
[2018-11-15] MEDS ORDERED: PHARMACY COMMENT IV NR (13:30)
[2018-11-15 14:59] LABS: CREATININE 0.81 mg/dL (0.55-1.02); VANCOMYCIN,TROUGH 10.5 ug/mL (15-20)
[2018-11-15] MEDS: ASPIRIN EC 81 MG PO SCH (20:52)
[2018-11-15] MEDS: CRESTOR TAB 10 MG PO SCH (20:52)
[2018-11-15] MEDS: RESTORIL CAP 15 MG PO PRN (20:53)
[2018-11-16] MEDS: NS 1000 ML 1,000 ML IV SCH ×3 (05:10→15:18)
[2018-11-16] MEDS: VANCOMYCIN HCL 1 GM VIAL 1 G in D5W 250 ML IV 250 ML IV SCH ×3 (05:10→21:55)
[2018-11-16 05:29] LABS: BASOPHILS % (AUTO) 0.4 % (0.2-1.0); EOSINOPHILS # (AUTO) 0.1 x10^3/uL (0.0-0.2); EOSINOPHILS % (AUTO) 1.8 % (0.9-2.9); HEMATOCRIT 37.9 % (36.0-47.0); HEMOGLOBIN 12.8 g/dL (12.0-16.0); LYMPHOCYTES # (AUTO) 1.2 X10^3/uL (1.3-2.9); LYMPHOCYTES % (AUTO) 25.6 % (21.0-51.0); MEAN CORPUSCULAR HGB CONC 33.7 g/dL (33.0-35.0); MEAN PLATELET VOLUME 10.4 fL (7.4-11.0); MONOCYTES # (AUTO) 0.6 x10^3/uL (0.3-0.8); MONOCYTES % (AUTO) 13.8 % (0.0-13.0); NEUTROPHILS # (AUTO) 2.7 x10^3/uL (2.2-4.8); NEUTROPHILS % (AUTO) 58.4 % (42.0-75.0); PLATELET COUNT 132 X10^3/uL (150.0-450.0); RED BLOOD COUNT 4.26 X10^6/uL (3.5-5.4); RED CELL DISTRIBUTION WIDTH 13.8 % (11.6-16.5); WHITE BLOOD COUNT 4.7 X10^3/uL (3.6-10.0)
[2018-11-16 05:37] LABS: ALANINE AMINOTRANSFERASE 8 Units/L (12-78); ALBUMIN 2.7 g/dL (3.4-5.0); ALKALINE PHOSPHATASE 66 Units/L (46-116); ASPARTATE AMINO TRANSFERASE 14 Units/L (15-37); BLOOD UREA NITROGEN 8 mg/dL (7-18); CALCIUM 8.5 mg/dL (8.5-10.1); CARBON DIOXIDE 33.6 mmol/L (21-32); CHLORIDE 102 mmol/L (98-107); COR CA(FOR HYPOALB) 9.5 mg/dL (8.5-10.1); COR NA(FOR HYPERGLY) 140 mmol/L (136-145); SODIUM 139 mmol/L (136-145); TOTAL PROTEIN 6.2 g/dL (6.4-8.2); eGFR NON BLACK RACES > 60 (>60)
[2018-11-16] MEDS ORDERED: GLUCOPHAGE ONE ×2 (08:11→19:24)
[2018-11-16] MEDS: LEVAQUIN PREMIX IV 500 MG 500 MG/100 ML BAG IV SCH (08:56)
[2018-11-16] MEDS: PROTONIX TAB 40 MG PO SCH ×2 (08:57→20:43)
[2018-11-16] MEDS: MICRO K EXTEN CAP 10 MEQ PO SCH ×2 (08:57→20:42)
[2018-11-16] MEDS: ELIQUIS PO SCH ×2 (08:57→20:40)
[2018-11-16] MEDS: PEPCID TAB 20 MG PO SCH ×2 (08:57→20:42)
[2018-11-16] MEDS: DIFLUCAN PO SCH (08:57)
[2018-11-16] MEDS: BETAPACE AF PO SCH ×2 (08:58→20:42)
[2018-11-16] MEDS: ALDACTONE TAB 25 MG PO SCH (08:58)
[2018-11-16] MEDS: SINEMET (PLAIN) 25/250 MG PO SCH ×2 (08:59→20:40)
[2018-11-16] MEDS: GLUCOPHAGE PO SCH ×2 (08:59→20:44)
[2018-11-16] MEDS: LASIX PO SCH ×3 (08:59→20:44)
[2018-11-16] MEDS: RESTORIL CAP 15 MG PO PRN (20:40)
[2018-11-16] MEDS: CRESTOR TAB 10 MG PO SCH (20:40)
[2018-11-16] MEDS: ASPIRIN EC 81 MG PO SCH (20:42)
[2018-11-16 21:33] LABS: CREATININE 0.76 mg/dL (0.55-1.02); VANCOMYCIN,TROUGH 14.8 ug/mL (15-20)
[2018-11-16] MEDS ORDERED: NS 250 ML IV 0 ML ONE (21:46)
[2018-11-17] MEDS: VANCOMYCIN HCL 1 GM VIAL 1 G in D5W 250 ML IV 250 ML IV SCH (05:05)
[2018-11-17 05:13] LABS: BASOPHILS % (AUTO) 0.4 % (0.2-1.0); EOSINOPHILS # (AUTO) 0.1 x10^3/uL (0.0-0.2); EOSINOPHILS % (AUTO) 1.8 % (0.9-2.9); HEMATOCRIT 41.5 % (36.0-47.0); HEMOGLOBIN 13.6 g/dL (12.0-16.0); LYMPHOCYTES # (AUTO) 1.6 X10^3/uL (1.3-2.9); MEAN CORPUSCULAR HEMOGLOBIN 29.7 pg (27.0-34.0); MEAN CORPUSCULAR HGB CONC 32.7 g/dL (33.0-35.0); MEAN CORPUSCULAR VOLUME 90.8 fL (80.0-100.0); MEAN PLATELET VOLUME 10.8 fL (7.4-11.0); MONOCYTES # (AUTO) 0.6 x10^3/uL (0.3-0.8); MONOCYTES % (AUTO) 11.9 % (0.0-13.0); NEUTROPHILS # (AUTO) 2.8 x10^3/uL (2.2-4.8); NEUTROPHILS % (AUTO) 54.9 % (42.0-75.0); PLATELET COUNT 170 X10^3/uL (150.0-450.0); RED BLOOD COUNT 4.57 X10^6/uL (3.5-5.4); WHITE BLOOD COUNT 5.1 X10^3/uL (3.6-10.0)
[2018-11-17 05:19] LABS: ALANINE AMINOTRANSFERASE 18 Units/L (12-78); ALBUMIN 3.2 g/dL (3.4-5.0); ALKALINE PHOSPHATASE 79 Units/L (46-116); ASPARTATE AMINO TRANSFERASE 13 Units/L (15-37); BLOOD UREA NITROGEN 11 mg/dL (7-18); CALCIUM 9.1 mg/dL (8.5-10.1); CARBON DIOXIDE 34.8 mmol/L (21-32); CHLORIDE 100 mmol/L (98-107); COR CA(FOR HYPOALB) 9.7 mg/dL (8.5-10.1); COR NA(FOR HYPERGLY) 140 mmol/L (136-145); CREATININE 0.82 mg/dL (0.55-1.02); SODIUM 139 mmol/L (136-145); eGFR NON BLACK RACES > 60 (>60)
[2018-11-17 08:10] VITALS: BP 97/42
[2018-11-17] MEDS ORDERED: GLUCOPHAGE ONE (08:14)
[2018-11-17] MEDS: DIFLUCAN PO SCH (08:31)
[2018-11-17] MEDS: PEPCID TAB 20 MG PO SCH (08:31)
[2018-11-17] MEDS: BETAPACE AF PO SCH (08:31)
[2018-11-17] MEDS: SINEMET (PLAIN) 25/250 MG PO SCH (08:32)
[2018-11-17] MEDS: ALDACTONE TAB 25 MG PO SCH (08:32)
[2018-11-17] MEDS: PROTONIX TAB 40 MG PO SCH (08:32)
[2018-11-17] MEDS: LASIX PO SCH (08:32)
[2018-11-17] MEDS: ELIQUIS PO SCH (08:32)
[2018-11-17] MEDS: MICRO K EXTEN CAP 10 MEQ PO SCH (08:33)
[2018-11-17] MEDS: GLUCOPHAGE PO SCH (08:33)
[2018-11-17] MEDS: LEVAQUIN PREMIX IV 500 MG 500 MG/100 ML BAG IV SCH (09:00)
[2018-11-17] MEDS ORDERED: BACTRIM DS TAB PO ONE ×2 (10:10→10:47)
--- NOTE | 2018-12-08 21:59 | DR.UPDATE ---
H&P Update History and Physical Update: History and Physical reviewed and patient examined. Changes noted: Yes with the following: WAS SEEN IN THE OFFICE ON 10/29/18 FOR A HOSPITAL FOLLOW-UP DUE TO ATRIAL FIBRILLATION. SHE ALSO COMPLAINED OF SEVERE REDNESS AND SWELLING TO THE RIGHT LOWER EXTREMITY. SHE WAS GIVEN BACTRIM DS 1 TABLET TWICE A DAY FOR 10 DAYS. SHE RETURNED TODAY WITH WORSENING SYMPTOMS. WE ADMITTED HER TO THE HOSPITAL FOR FURTHER EVALUATION AND TREATMENT OF RIGHT LOWER EXTREMITY CELLULITIS. ON ADMISSION, WE PLAN TO OBTAIN LABS AND BLOOD CULTURES. WE WILL START IV VANCOMYCIN AND IV LEVAQUIN. OTHERWISE, WE WILL FOLLOW UP WITH AM LABS AND CONTINUE TO MONITOR. Prescription drug monitoring program results: PDMP was not reviewed
--- NOTE | 2018-12-08 22:06 | PCM.PROG ---
Progress Note - Progress Note for Day of Date of Exam: 11/15/17 - Subjective Subjective: WAS ADMITTED FOR RIGHT LOWER EXTREMITY CELLULITIS. TODAY, SHE IS ALERT AND ORIENTED, SITTING UP IN THE CHAIR ON MORNING ROUNDS. SHE CONTINUES WITH ERYTHEM AND EDEMA TO THE RIGHT LOWER EXTREMITY. LEFT LOWER EXTREMITY IS NOTED WITH ERYTHEM AND EDEMA WELL, HOWEVER, IT DOES NOT APPEAR TO BE A SEVERE THE RIGHT LEG. HER VITALS THIS MORNING ARE: 98.7-67-20-94%-106/55. LABS WERE OBTAINED. ABNORMAL LAB VALUES INCLUDE THE FOLLOWING: PLT COUNT 130, CARBON DIOXIDE 34.6, BUN 6, GLUCOSE 109, CALCIUM 8.1, MAGNESIUM 1.4, AST 12, ALBUMIN 2.9. SHE IS CURRENTLY RECIVING IV VANCOMYCIN AND IV LEVAQUIN. WE WILL CONTINUE WITH CURRENT PLAN OF CARE AND RESUME HER HOME MEDICATIONS TODAY. OTHERWISE, WE WILL FOLLOW UP WITH AM LABS AND CONTINUE TO MONITOR. - Past Medical Family Social History Past Med/Fam/Surg Hx: No changes since H&P Allergies: Allergies meperidine [From Demerol] Allergy (Verified 02/19/17 02:07) - Review of Systems ROS: No change since H&P - Vital Signs and I&O's Vital Signs: Temperature 97.5 F Pulse Rate [Apical] 64 Respiratory Rate 20 Blood Pressure [Left Arm] 97/42 Blood Pressure [Right Arm] 94/45 Blood Pressure 141/64 O2 Sat by Pulse Oximetry 96 - Physical Exam Oriented: Normal Eyes: Normal Ear: Normal Nose: Normal Throat: Normal Respiratory: Generalized, Diminished Cardiovascular: Edema (BILATERAL LOWER EXTREMITY EDEMA ) : Normal Palpation: Normal Tenderness: Normal Skin: Red, Tender, Hot (RIGHT LOWER EXTREMITY ) Musculoskeletal: Right, Left, Leg, Swelling, Tender Psychiatric: Normal Mood Description: Calm Affect: Normal Speech Pattern: Clear, Appropriate - Laboratory and Diagnostics Result Diagrams: 11/17/18 04:18 11/17/18 04:18 Labs: Laboratory WBC 5.1 X10^3/uL (3.6-10.0) 11/17/18 04:18 RBC 4.57 X10^6/uL (3.5-5.4) 11/17/18 04:18 Hgb 13.6 g/dL (12.0-16.0) 11/17/18 04:18 Hct 41.5 % (36.0-47.0) 11/17/18 04:18 MCV 90.8 fL (80.0-100.0) 11/17/18 04:18 MCH 29.7 pg (27.0-34.0) 11/17/18 04:18 MCHC 32.7 g/dL (33.0-35.0) L 11/17/18 04:18 RDW 14.0 % (11.6-16.5) 11/17/18 04:18 Plt Count 170 X10^3/uL (150.0-450.0) 11/17/18 04:18 MPV 10.8 fL (7.4-11.0) 11/17/18 04:18 Neut % (Auto) 54.9 % (42.0-75.0) 11/17/18 04:18 Lymph % (Auto) 31.0 % (21.0-51.0) 11/17/18 04:18 Anderson % (Auto) 11.9 % (0.0-13.0) 11/17/18 04:18 Eos % (Auto) 1.8 % (0.9-2.9) 11/17/18 04:18 Baso % (Auto) 0.4 % (0.2-1.0) 11/17/18 04:18 Neut # (Auto) 2.8 x10^3/uL (2.2-4.8) 11/17/18 04:18 Lymph # (Auto) 1.6 X10^3/uL (1.3-2.9) 11/17/18 04:18 Anderson # (Auto) 0.6 x10^3/uL (0.3-0.8) 11/17/18 04:18 Eos # (Auto) 0.1 x10^3/uL (0.0-0.2) 11/17/18 04:18 Baso # (Auto) 0.0 X10^3/uL (0.0-0.1) 11/17/18 04:18 Absolute Nucleated RBC 0.1 /100WBC 11/17/18 04:18 Sodium 139 mmol/L (136-145) 11/17/18 04:18 Corrected Sodium 140 mmol/L (136-145) 11/17/18 04:18 Potassium 4.3 mmol/L (3.5-5.1) 11/17/18 04:18 Chloride 100 mmol/L (98-107) 11/17/18 04:18 Carbon Dioxide 34.8 mmol/L (21-32) H 11/17/18 04:18 BUN 11 mg/dL (7-18) 11/17/18 04:18 Creatinine 0.82 mg/dL (0.55-1.02) 11/17/18 04:18 Est GFR (MDRD) Af Amer > 60 (>60) 11/17/18 04:18 Est GFR (MDRD) Non-Af > 60 (>60) 11/17/18 04:18 Glucose 157 mg/dL (65-99) H 11/17/18 04:18 Hemoglobin A1c 6.9 % 11/15/18 04:19 Calcium 9.1 mg/dL (8.5-10.1) 11/17/18 04:18 Corrected Calcium 9.7 mg/dL (8.5-10.1) 11/17/18 04:18 Magnesium 2.0 mg/dL (1.7-2.9) 11/15/18 04:19 Total Bilirubin 0.40 mg/dL (0.2-1.0) 11/17/18 04:18 AST 13 Units/L (15-37) L 11/17/18 04:18 ALT 18 Units/L (12-78) 11/17/18 04:18 Alkaline Phosphatase 79 Units/L (46-116) 11/17/18 04:18 Total Protein 7.0 g/dL (6.4-8.2) 11/17/18 04:18 Albumin 3.2 g/dL (3.4-5.0) L 11/17/18 04:18 Globulin 3.8 g/dL (2.5-4.5) 11/17/18 04:18 Albumin/Globulin Ratio 0.8 Ratio (1.1-2.1) L 11/17/18 04:18 Vancomycin Trough 14.8 ug/mL (15-20) L 11/16/18 21:01 - Plan (1) Cellulitis of right lower extremity Status: Acute Plan: IV VANCOMYCIN, IV LEVAQUIN, CONTINUE TO MONITOR (2) Stasis dermatitis of both legs Status: Chronic
--- NOTE | 2018-12-08 22:10 | PCM.PROG ---
Progress Note - Progress Note for Day of Date of Exam: 11/16/18 - Subjective Subjective: WAS ADMITTED FOR RIGHT LOWER EXTREMITY CELLULITIS. TODAY, SHE IS ALERT AND ORIENTED, SITTING UP IN THE CHAIR ON MORNING ROUNDS. SHE CONTINUES WITH ERYTHEM AND EDEMA TO THE RIGHT LOWER EXTREMITY. LEFT LOWER EXTREMITY IS NOTED WITH ERYTHEM AND EDEMA WELL, HOWEVER, IT DOES NOT APPEAR TO BE A SEVERE THE RIGHT LEG. HER VITALS THIS MORNING ARE: 97.8-63-20-94%-104/52. LABS WERE OBTAINED. ABNORMAL LAB VALUES INCLUDE THE FOLLOWING: PLT COUNT 132, CARBON DIOXIDE 33.6, GLUCOSE 124, AST 14, ALT 8, TOTAL PROTEIN 6.2, ALBUMIN 2.7. BLOOD CULTURES REVEALED GROWTH OF SERRATIA MARCESCENS. SHE IS CURRENTLY RECIVING IV VANCOMYCIN AND IV LEVAQUIN. WE WILL CONTINUE WITH CURRENT PLAN OF CARE TODAY. OTHERWISE, WE WILL FOLLOW UP WITH AM LABS AND CONTINUE TO MONITOR. - Past Medical Family Social History Past Med/Fam/Surg Hx: No changes since H&P Allergies: Allergies meperidine [From Demerol] Allergy (Verified 02/19/17 02:07) - Review of Systems ROS: No change since H&P - Vital Signs and I&O's Vital Signs: Temperature 97.5 F Pulse Rate [Apical] 64 Respiratory Rate 20 Blood Pressure [Left Arm] 97/42 Blood Pressure [Right Arm] 94/45 Blood Pressure 141/64 O2 Sat by Pulse Oximetry 96 - Physical Exam Oriented: Normal Eyes: Normal Ear: Normal Nose: Normal Throat: Normal Respiratory: Generalized, Diminished Cardiovascular: Edema (BILATERAL LOWER EXTREMITY EDEMA ) : Normal Tenderness: Normal Skin: Red, Tender, Hot (RIGHT LOWER EXTREMITY ) Musculoskeletal: Right, Left, Leg, Swelling, Tender Psychiatric: Normal Mood Description: Calm Affect: Normal Speech Pattern: Clear, Appropriate - Laboratory and Diagnostics Result Diagrams: 11/17/18 04:18 11/17/18 04:18 Labs: Laboratory WBC 5.1 X10^3/uL (3.6-10.0) 11/17/18 04:18 RBC 4.57 X10^6/uL (3.5-5.4) 11/17/18 04:18 Hgb 13.6 g/dL (12.0-16.0) 11/17/18 04:18 Hct 41.5 % (36.0-47.0) 11/17/18 04:18 MCV 90.8 fL (80.0-100.0) 11/17/18 04:18 MCH 29.7 pg (27.0-34.0) 11/17/18 04:18 MCHC 32.7 g/dL (33.0-35.0) L 11/17/18 04:18 RDW 14.0 % (11.6-16.5) 11/17/18 04:18 Plt Count 170 X10^3/uL (150.0-450.0) 11/17/18 04:18 MPV 10.8 fL (7.4-11.0) 11/17/18 04:18 Neut % (Auto) 54.9 % (42.0-75.0) 11/17/18 04:18 Lymph % (Auto) 31.0 % (21.0-51.0) 11/17/18 04:18 [place] % (Auto) 11.9 % (0.0-13.0) 11/17/18 04:18 Eos % (Auto) 1.8 % (0.9-2.9) 11/17/18 04:18 Baso % (Auto) 0.4 % (0.2-1.0) 11/17/18 04:18 Neut # (Auto) 2.8 x10^3/uL (2.2-4.8) 11/17/18 04:18 Lymph # (Auto) 1.6 X10^3/uL (1.3-2.9) 11/17/18 04:18 [place] # (Auto) 0.6 x10^3/uL (0.3-0.8) 11/17/18 04:18 Eos # (Auto) 0.1 x10^3/uL (0.0-0.2) 11/17/18 04:18 Baso # (Auto) 0.0 X10^3/uL (0.0-0.1) 11/17/18 04:18 Absolute Nucleated RBC 0.1 /100WBC 11/17/18 04:18 Sodium 139 mmol/L (136-145) 11/17/18 04:18 Corrected Sodium 140 mmol/L (136-145) 11/17/18 04:18 Potassium 4.3 mmol/L (3.5-5.1) 11/17/18 04:18 Chloride 100 mmol/L (98-107) 11/17/18 04:18 Carbon Dioxide 34.8 mmol/L (21-32) H 11/17/18 04:18 BUN 11 mg/dL (7-18) 11/17/18 04:18 Creatinine 0.82 mg/dL (0.55-1.02) 11/17/18 04:18 Est GFR (MDRD) Af Amer > 60 (>60) 11/17/18 04:18 Est GFR (MDRD) Non-Af > 60 (>60) 11/17/18 04:18 Glucose 157 mg/dL (65-99) H 11/17/18 04:18 Hemoglobin A1c 6.9 % 11/15/18 04:19 Calcium 9.1 mg/dL (8.5-10.1) 11/17/18 04:18 Corrected Calcium 9.7 mg/dL (8.5-10.1) 11/17/18 04:18 Magnesium 2.0 mg/dL (1.7-2.9) 11/15/18 04:19 Total Bilirubin 0.40 mg/dL (0.2-1.0) 11/17/18 04:18 AST 13 Units/L (15-37) L 11/17/18 04:18 ALT 18 Units/L (12-78) 11/17/18 04:18 Alkaline Phosphatase 79 Units/L (46-116) 11/17/18 04:18 Total Protein 7.0 g/dL (6.4-8.2) 11/17/18 04:18 Albumin 3.2 g/dL (3.4-5.0) L 11/17/18 04:18 Globulin 3.8 g/dL (2.5-4.5) 11/17/18 04:18 Albumin/Globulin Ratio 0.8 Ratio (1.1-2.1) L 11/17/18 04:18 Vancomycin Trough 14.8 ug/mL (15-20) L 11/16/18 21:01 - Plan (1) Cellulitis of right lower extremity Status: Acute Plan: IV VANCOMYCIN, IV LEVAQUIN, CONTINUE TO MONITOR (2) Stasis dermatitis of both legs Status: Chronic
== END 2018-11-17 11:35 | disposition home or self-care (01) | DRG 603 ==
LOC: MED/SURG 09:39
PROVIDERS: ADMIT Internal Medicine; ATTEND Internal Medicine
DX: I48.2 Chronic atrial fibrillation; E78.2 Mixed hyperlipidemia; I11.0 Hypertensive heart disease with heart failure; L03.115 Cellulitis of right lower limb; E11.65 Type 2 diabetes mellitus with hyperglycemia; I50.9 Heart failure, unspecified; R60.0 Localized edema; I87.2 Venous insufficiency (chronic) (peripheral)
CPT/HCPCS: 36415; 80053; 80202; 82565; 83036; 83735; 85025; A4216; A4222; J1642; J1956; J3370; J3475; J3490; J7030; J7050; J7060

== ENCOUNTER 2020-11-28 13:36 | Inpatient (IN) ==
[2020-11-28 13:41] VITALS: BMI 64.0
[2020-11-28 13:44] LABS: ABG BASE EXCESS 14.7 mmol/L (-2.0-2.0)
[2020-11-28 13:45] LABS: ABG HCO3 43.4 mmol/L (22-26)
--- NOTE | 2020-11-28 13:45 | DR.GENAD ---
HPI Time Seen Time Seen by Provider: 11/28/20 13:37 PCP Primary Care Physician: ASHRA HPI Comment HPI Comment: pt has not been feeling well, dizziness and nausea Complaint/Symptoms Chief Complaint:: PATIENT CAME TO REPORTS SOB, NAUSEA, AND DIZZINESS ONSET YESTERDAY. COVID-19 Coronavirus risk:travel/contact w/high risk person: Yes Has patient experienced Coronavirus symptoms: Yes Coronavirus symptoms experienced: Shortness of Breath Nurses notes reviewed Nurses Notes Review: Yes Source History Provided: Patient Mode of Arrival Mode of Arrival: Wheelchair Timing Onset of Chief Complaint: 11/27/20 PMH PMH Past Medical History: Yes Past Medical History: CHF and COPD Past Medical History Comment: AFIB Past Surgical History: Yes Surgical History: Family History History of Family Medical Conditions: No Family Medical History: Diabetes Mellitus, OR and Hypertension Social History Does any household member use tobacco: No Alcohol Use: None Do you use any recreational Drugs:: No Lives With: Alone Lives Where: Home Travel Risk Coronavirus risk:travel/contact w/high risk person: Yes Has patient experienced Coronavirus symptoms: Yes Coronavirus symptoms experienced: Shortness of Breath Infectious screening In the last 2 months have you had wt loss of >10#?: YES Have you had fever, night sweats or hemotysis?: No Have you traveled outside the country in the last 6 months?: No Isolation: Standard ROS Review of Systems Constitutional: No Symptoms Reported Eyes: No Symptoms Reported ENTM: No Symptoms Reported Respiratoy: See HPI and Short of Breath Cardiovascular: No Symptoms Reported Gastrointestinal/Abdominal: Nausea Genitourinary: No Symptoms Reported Neurological: Dizziness Musculoskeletal: No Symptoms Reported Integumentary: No Symptoms Reported Hematologic/Lymphatic: No Symptoms Reported Endocrine: No Symptoms Reported Psychiatric: No Symptoms Reported All Other Systems: Reviewed and Negative PE Vital Signs Vitals: Temperature 99.0 F Pulse Rate 63 Respiratory Rate 20 Blood Pressure [Left Arm] 133/61 Blood Pressure 120/66 O2 Sat by Pulse Oximetry 100 General Limitations: No Limitations General Appearance: Alert, In No Apparent Distress and Obese Head Head Exam: Normal Inspection Eyes Eye exam: Normal Appearance ENT ENT Exam: Normal Exam External Ear Exam: Normal External Inspection TM/Canal Exam: Bilateral: Normal Nose Exam: Normal Nose Exam Mouth Exam: Normal Inspection Throat Exam: Normal Inspection Neck Neck Exam: Normal Inspection Chest Chest Inspection: Normal Inspection Respiratory Respiratory Exam: Normal Lung Sounds Bilat Respiratory Exam: Bilateral: Clear to Auscultation and Bilateral: Rales and Lower: Rales Cardiovascular Cardiovascular Exam: Regular Rate and Normal Rhythm Abdominal Exam Abdominal Exam: Normal Inspection, Normal Bowel Sounds and Soft Extremities Extremities Exam: Edema and Other (chronic lymph edema changes) Back Back Exam: Normal Inspection Neurologic Neurological Exam: Alert, Oriented X3 and CN II-XII Intact Psychiatric Psychiatric Exam: Normal Affect and Normal Mood Skin Skin Exam: Warm, Dry, Intact and Normal Color MDM Additional Information Additional Information Obtained From: Old Records Differential Diagnosis Differential Diagnosis: CHF vs pneumonia ACS vs COVID, pt is on eliquis, doubt PE COURSE Treatment Treatment: hypoxia, will do cardiac work-up and check ABG, start O2 Reevaluation 1st: Improved (on BIPAP) 2nd: Improved (CTA no PE or pneumonia, will admit for COPD and hypoxia, hypercapnia) Education/Counseling Education/Counseling: Patient Educated On: Treatment, Diagnosis and Prognosis Critical Care Notes Total Time (mins): 40 Critical Diagnosis: COPD with hypoxia and hypercapnia, resp failure ROR Labs Reviewed Result Diagrams: 11/28/20 13:50 11/28/20 13:50 Laboratory: WBC 7.6 X10^3/uL (3.6-10.0) 11/28/20 13:50 RBC 4.40 X10^6/uL (3.5-5.4) 11/28/20 13:50 Hgb 13.0 g/dL (12.0-16.0) 11/28/20 13:50 Hct 39.3 % (36.0-47.0) 11/28/20 13:50 MCV 89.4 fL (80.0-100.0) 11/28/20 13:50 MCH 29.5 pg (27.0-34.0) 11/28/20 13:50 MCHC 33.0 g/dL (33.0-35.0) 11/28/20 13:50 RDW 13.9 % (11.6-16.5) 11/28/20 13:50 Plt Count 164 X10^3/uL (150.0-450.0) 11/28/20 13:50 MPV 9.6 fL (7.4-11.0) 11/28/20 13:50 Neut % (Auto) 67.1 % (42.0-75.0) 11/28/20 13:50 Lymph % (Auto) 22.4 % (21.0-51.0) 11/28/20 13:50 Charles % (Auto) 9.2 % (0.0-13.0) 11/28/20 13:50 Eos % (Auto) 0.7 % (0.9-2.9) L 11/28/20 13:50 Baso % (Auto) 0.6 % (0.2-1.0) 11/28/20 13:50 Neut # (Auto) 5.1 x10^3/uL (2.2-4.8) H 11/28/20 13:50 Lymph # (Auto) 1.7 X10^3/uL (1.3-2.9) 11/28/20 13:50 Charles # (Auto) 0.7 x10^3/uL (0.3-0.8) 11/28/20 13:50 Eos # (Auto) 0.1 x10^3/uL (0.0-0.2) 11/28/20 13:50 Baso # (Auto) 0.0 X10^3/uL (0.0-0.1) 11/28/20 13:50 Absolute Nucleated RBC 0.1 /100WBC 11/28/20 13:50 PT 14.8 SECONDS (11.8-14.3) 11/28/20 13:50 INR Target Range - 11/28/20 13:50 INR 1.22 (0.8-1.3) 11/28/20 13:50 D-Dimer 0.70 ug/ml (0.0-0.57) H* 11/28/20 13:50 Sample Site Rrad 11/28/20 13:37 ABG pH 7.370 (7.35-7.45) 11/28/20 13:37 ABG pCO2 75.0 mmHg (35.0-45.0) H* 11/28/20 13:37 ABG pO2 40.0 mmHg (80.0-100.0) L* 11/28/20 13:37 ABG HCO3 43.4 mmol/L (22-26) H* 11/28/20 13:37 ABG O2 Saturation 73.0 % (90-100) L* 11/28/20 13:37 ABG Base Excess 14.7 mmol/L (-2.0-2.0) H 11/28/20 13:37 Jose Angel Test Pos 11/28/20 13:37 A-a Gradient 16.0 mmHg 11/28/20 13:37 FiO2 21.0 11/28/20 13:37 Blood Gas Comments 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 elj 11/28/20 13:37 Sodium 144 mmol/L (136-145) 11/28/20 13:50 Corrected Sodium 147 mmol/L (136-145) H 11/28/20 13:50 Potassium 3.9 mmol/L (3.5-5.1) 11/28/20 13:50 Chloride 103 mmol/L (98-107) 11/28/20 13:50 Carbon Dioxide 40.7 mmol/L (21-32) H* 11/28/20 13:50 BUN 9 mg/dL (7-18) 11/28/20 13:50 Creatinine 0.66 mg/dL (0.55-1.02) 11/28/20 13:50 Est GFR (MDRD) Af Amer > 60 (>60) 11/28/20 13:50 Est GFR (MDRD) Non-Af > 60 (>60) 11/28/20 13:50 Glucose 207 mg/dL (65-99) H 11/28/20 13:50 Calcium 8.2 mg/dL (8.5-10.1) L 11/28/20 13:50 Corrected Calcium TNP 11/28/20 13:50 Total Bilirubin 0.40 mg/dL (0.2-1.0) 11/28/20 13:50 AST 18 Units/L (15-37) 11/28/20 13:50 ALT 11 Units/L (12-78) L 11/28/20 13:50 Alkaline Phosphatase 80 Units/L (46-116) 11/28/20 13:50 Creatine Kinase 48 Units/L (26-192) 11/28/20 13:50 CK-MB (CK-2) < 1.0 ng/mL (0-4.0) 11/28/20 13:50 CK/CKMB % Calc 2.1 % (<4) 11/28/20 13:50 Troponin I < 0.02 ng/mL (0-1.5) 11/28/20 13:50 B-Natriuretic Peptide 55.4 pg/mL (0-79) 11/28/20 13:50 Total Protein 6.6 g/dL (6.4-8.2) 11/28/20 13:50 Albumin 3.4 g/dL (3.4-5.0) 11/28/20 13:50 Globulin 3.2 g/dL (2.5-4.5) 11/28/20 13:50 Albumin/Globulin Ratio 1.1 Ratio (1.1-2.1) 11/28/20 13:50 SARS-CoV-2 (PCR) Negative (NEGATIVE) 11/28/20 13:45 Influenza Type A (PCR) Negative (NEGATIVE) 11/28/20 13:45 Influenza Type B (PCR) Negative (NEGATIVE) 11/28/20 13:45 RSV (PCR) Negative (NEGATIVE) 11/28/20 13:45 CO2 retention and hypoxia, metabolic acidosis will place on BiPAP XRAY XRAY Interpreted by: Radiologist X-ray Results: CXR showed no sig acute process CTA IMPRESSION: 1. No evidence for pulmonary embolic disease. 2. No evidence for aortic aneurysm or aortic dissection. 3. No acute parenchymal infiltrate, pleural effusion, or pneumothorax seen. 4. No gross endobronchial obstructing lesion is seen. EKG Rate: 64 [place]: Normal Rhythm: NSR Block: None Hypertrophy: None ST: Normal Opioid Opioid Risk Tool Age (Florin box if 16-45): No History of Preadolescent Sexual Abuse: No Total: 0 Total Score Risk Category: Low Risk Copyright: Juan R FLOYD predicting aberrant behaviors Diagnosis Discharge Problem: Hypercapnia, Respiratory distress, Acute and chronic respiratory failure with hypercapnia, Acute dyspnea, Hypoxia, COPD mixed type
[2020-11-28 13:46] LABS: ABG ALLEN TEST POS
[2020-11-28] MEDS ORDERED: ZOFRAN INJ 4 MG VIAL IVP ONE ×2 (13:48→16:41)
[2020-11-28] MEDS ORDERED: ZOFRAN INJ 4 MG VIAL ONE ×3 (13:54→21:01)
[2020-11-28 14:09] LABS: BASOPHILS % (AUTO) 0.6 % (0.2-1.0); EOSINOPHILS # (AUTO) 0.1 x10^3/uL (0.0-0.2); EOSINOPHILS % (AUTO) 0.7 % (0.9-2.9); HEMATOCRIT 39.3 % (36.0-47.0); LYMPHOCYTES # (AUTO) 1.7 X10^3/uL (1.3-2.9); LYMPHOCYTES % (AUTO) 22.4 % (21.0-51.0); MEAN CORPUSCULAR HEMOGLOBIN 29.5 pg (27.0-34.0); MEAN CORPUSCULAR VOLUME 89.4 fL (80.0-100.0); MEAN PLATELET VOLUME 9.6 fL (7.4-11.0); MONOCYTES # (AUTO) 0.7 x10^3/uL (0.3-0.8); MONOCYTES % (AUTO) 9.2 % (0.0-13.0); NEUTROPHILS # (AUTO) 5.1 x10^3/uL (2.2-4.8); NEUTROPHILS % (AUTO) 67.1 % (42.0-75.0); PLATELET COUNT 164 X10^3/uL (150.0-450.0); RED CELL DISTRIBUTION WIDTH 13.9 % (11.6-16.5); WHITE BLOOD COUNT 7.6 X10^3/uL (3.6-10.0)
--- NOTE | 2020-11-28 14:10 | RAD ---
HISTORY: [Cough]. [Dyspnea].[Single portable view] of the chest.Comparison: Chest radiograph dated May 04, 2020.Findings:The trachea is midline. The cardiac silhouette is enlarged with prominence of the pulmonary arteries; right greater than left. There are increased [perihilar] interstitial opacities seen, suggesting [central bronchitis or a viral respiratory infection]. Please correlate medically and clinically. The remaining lungs [are otherwise clear without focal infiltrate or pleural effusion]. The bony thorax [is unremarkable].There is a stable right-sided marianne catheter CVL. No pneumothorax is identified.IMPRESSION:Chest findings suggesting a viral respiratory tract infection versus bronchitis, as above.No lobar infiltrates or pleural effusion seen. Please correlate medically. Cardiomegaly.Soft tissue prominence in the right hilum probably reflects an enlarged pulmonary artery.This should be followed up with formal outpatient PA and lateral views of the chest, however.Electronically signed by: DENNY OSORIO III (Nov 28, 2020 14:07:37)
[2020-11-28 14:29] LABS: ALANINE AMINOTRANSFERASE 11 Units/L (12-78); ALBUMIN 3.4 g/dL (3.4-5.0); ALKALINE PHOSPHATASE 80 Units/L (46-116); ASPARTATE AMINO TRANSFERASE 18 Units/L (15-37); BLOOD UREA NITROGEN 9 mg/dL (7-18); CALCIUM 8.2 mg/dL (8.5-10.1); CHLORIDE 103 mmol/L (98-107); CKMB % 2.1 % (<4); COR NA(FOR HYPERGLY) 147 mmol/L (136-145); CREATINE KINASE 48 Units/L (26-192); CREATINE KINASE MB < 1.0 ng/mL (0-4.0); CREATININE 0.66 mg/dL (0.55-1.02); SODIUM 144 mmol/L (136-145); TOTAL PROTEIN 6.6 g/dL (6.4-8.2); TROPONIN I < 0.02 ng/mL (0-1.5); eGFR NON BLACK RACES > 60 (>60)
[2020-11-28 14:31] LABS: CARBON DIOXIDE 40.7 mmol/L (21-32)
[2020-11-28] MEDS ORDERED: NS 100 ML IV 100 ML ONE ×2 (15:40→21:08)
--- NOTE | 2020-11-28 17:15 | CT ---
EXAM: CTA CHEST WITH INTRAVENOUS CONTRASTHISTORY: Shortness of breath. Evaluation for PE.TECHNIQUE: Spiral axial CT images are obtained through the chest with the administration of intravenous contrast. Coronal, sagittal and 3D MIP images are reformatted.DOSIMETRY: Total DLP 606.2 mGycm; CTDI 38.9 mGyCOMPARISON: None available.FINDINGS:CARDIOVASCULAR: There is no evidence for pulmonary embolic disease. The heart size and mediastinal vascular structures are within normal limits. There is no significant aortic or coronary atherosclerosis seen. No thoracic aortic aneurysm or dissection is noted. A right anterior chest wall chest port is noted in situ with the distal tip in the SVC.MEDIASTINUM AND SHEEBA: No mass lesion, lymphadenopathy, emphysema, or abnormal fluid collection is seen.LUNGS: There is no acute parenchymal infiltrate, lung nodule, or endobronchial obstructing lesion seen. No pleural effusion or pneumothorax is evident.CHEST WALL: There are no chest wall lesions seen. Multilevel DDD is seen throughout the thoracic spine marked by right anterior lateral marginal osteophytosis. The visualized bony structures are otherwise within normal limits. No axillary lymphadenopathy is noted.UPPER ABDOMEN: Limited views through the upper abdomen demonstrate no gross acute abnormality. Status post LAP-BAND procedure. No evidence for slippage.IMPRESSION:1. No evidence for pulmonary embolic disease.2. No evidence for aortic aneurysm or aortic dissection.3. No acute parenchymal infiltrate, pleural effusion, or pneumothorax seen.4. No gross endobronchial obstructing lesion is seen.Electronically signed by: Viviane Espinal (Nov 28, 2020 17:13:50)
[2020-11-28] MEDS: Atrovent NEB TX 0.02% NEB SCH (18:29)
[2020-11-28] MEDS ORDERED: PULMICORT NEB TX 0.5 MG NEB ONE (19:57)
[2020-11-28 20:48] LABS: ABG BASE EXCESS 15.3 mmol/L (-2.0-2.0)
[2020-11-28 20:50] LABS: ABG ALLEN TEST POS; ABG HCO3 45.3 mmol/L (22-26)
[2020-11-28] MEDS: PULMICORT NEB TX 0.5 MG NEB SCH (21:00)
[2020-11-28] MEDS ORDERED: GLUCOPHAGE ONE (21:04)
[2020-11-28] MEDS: ZOFRAN INJ 4 MG VIAL IVP PRN (21:08)
[2020-11-28] MEDS ORDERED: NS 100 ML IV 100 ML IV ONE (21:12)
[2020-11-28] MEDS: ALDACTONE TAB 25 MG PO SCH ×2 (21:19→21:54)
[2020-11-28] MEDS: PREDNISONE TAB 20 MG PO SCH (21:20)
[2020-11-28] MEDS: SNACK - Diabetic Appropriate PO SCH (21:20)
[2020-11-28] MEDS: PROTONIX TAB 40 MG PO SCH (21:20)
[2020-11-28] MEDS: MICRO K EXTEN CAP 10 MEQ PO SCH (21:21)
[2020-11-28] MEDS: ROCEPHIN VIAL 1 GRAM 1 G in NS 100 ML IV + SPIKE MINIBAG* 100 ML IV SCH (21:21)
[2020-11-28] MEDS: SINEMET (PLAIN) 25/100 MG PO SCH (21:22)
[2020-11-28] MEDS: PEPCID TAB 40 MG PO SCH (21:22)
[2020-11-28] MEDS: LASIX PO SCH ×2 (21:23→21:53)
[2020-11-28] MEDS: ELIQUIS PO SCH (21:23)
[2020-11-28] MEDS: CRESTOR TAB 10 MG PO SCH (21:23)
[2020-11-28] MEDS: ASPIRIN EC 81 MG PO SCH (21:23)
[2020-11-28] MEDS: GLUCOPHAGE PO SCH (21:23)
[2020-11-28] MEDS: BETAPACE AF PO SCH (21:25)
[2020-11-29] MEDS: Atrovent NEB TX 0.02% NEB SCH ×4 (00:40→17:08)
[2020-11-29] MEDS: BETAPACE AF PO SCH ×2 (05:44→20:21)
[2020-11-29 06:09] LABS: ABG BASE EXCESS 13.8 mmol/L (-2.0-2.0)
[2020-11-29 06:10] LABS: ABG ALLEN TEST POS; ABG HCO3 43.8 mmol/L (22-26)
[2020-11-29 07:24] LABS: BASOPHILS % (AUTO) 0.2 % (0.2-1.0); HEMATOCRIT 39.1 % (36.0-47.0); HEMOGLOBIN 12.6 g/dL (12.0-16.0); LYMPHOCYTES # (AUTO) 0.9 X10^3/uL (1.3-2.9); LYMPHOCYTES % (AUTO) 14.7 % (21.0-51.0); MEAN CORPUSCULAR HGB CONC 32.3 g/dL (33.0-35.0); MONOCYTES # (AUTO) 0.2 x10^3/uL (0.3-0.8); MONOCYTES % (AUTO) 2.6 % (0.0-13.0); NEUTROPHILS # (AUTO) 5.2 x10^3/uL (2.2-4.8); NEUTROPHILS % (AUTO) 82.5 % (42.0-75.0); PLATELET COUNT 146 X10^3/uL (150.0-450.0); RED BLOOD COUNT 4.34 X10^6/uL (3.5-5.4); RED CELL DISTRIBUTION WIDTH 13.8 % (11.6-16.5); WHITE BLOOD COUNT 6.3 X10^3/uL (3.6-10.0)
[2020-11-29 07:34] LABS: BLOOD UREA NITROGEN 8 mg/dL (7-18); CALCIUM 8.3 mg/dL (8.5-10.1); CHLORIDE 104 mmol/L (98-107); COR NA(FOR HYPERGLY) 147 mmol/L (136-145); CREATININE 0.65 mg/dL (0.55-1.02); SODIUM 144 mmol/L (136-145); eGFR NON BLACK RACES > 60 (>60)
[2020-11-29] MEDS ORDERED: GLUCOPHAGE ONE ×2 (08:01→20:08)
[2020-11-29] MEDS: ROCEPHIN VIAL 1 GRAM 1 G in NS 100 ML IV + SPIKE MINIBAG* 100 ML IV SCH ×2 (09:13→20:22)
[2020-11-29] MEDS: ELIQUIS PO SCH ×2 (09:14→20:21)
[2020-11-29] MEDS: LASIX PO SCH (09:14)
[2020-11-29] MEDS: ALDACTONE TAB 25 MG PO SCH (09:14)
[2020-11-29] MEDS: GLUCOPHAGE PO SCH ×2 (09:14→20:21)
[2020-11-29] MEDS: SINEMET (PLAIN) 25/100 MG PO SCH ×2 (09:14→20:22)
[2020-11-29] MEDS: PROTONIX TAB 40 MG PO SCH ×2 (09:14→20:22)
[2020-11-29] MEDS: PEPCID TAB 40 MG PO SCH ×2 (09:14→20:21)
[2020-11-29] MEDS: MICRO K EXTEN CAP 10 MEQ PO SCH ×2 (09:14→20:21)
[2020-11-29] MEDS: PREDNISONE TAB 20 MG PO SCH (09:15)
[2020-11-29] MEDS: PULMICORT NEB TX 0.5 MG NEB SCH ×2 (09:44→20:20)
[2020-11-29] MEDS ORDERED: KLONOPIN TAB 1 MG PO SCH (11:00)
[2020-11-29] MEDS ORDERED: KLONOPIN TAB 1 MG PO PRN (11:53)
--- NOTE | 2020-11-29 12:51 | DR.H&P ---
H&P - History & Physical for Day of: H&P Date: 11/28/20 - Chief Complaint Chief Complaint: sob, nausea, dizziness - History of Present Illness History of Present Illness: Ms. Ta is a 67 year old patient of ours who presented to the emergency room with reports of severe shortness of breath, nausea, and dizziness. She reports that symptoms started one day prior and has increasingly gotten worse despite use of home c-pap. Associated symptoms include weakness and fatigue. She reports a history of Cardiac Arrhythmia, Hyperlipidemia, Hypertension, A-fib, Sleep Apnea, Gerd, Constipation, Diarrhea, HPylori, UTIs, Elephantitis, Lymphedema, Anxiety. On examination, wheezing is noted in bilateral lung zheng. Abdomen is round, soft, and non-tender. Normal bowel sounds noted in all quadrants. Patient noted with non- pitting edema to bilateral lower extremities. Patient has a history of chronic peripheral edema. Patient reports being unable to lie flat due to increased shortness of breath with shortness of breath on exertion. On arrival to the ER, vital signs are 99.0-93-20-72%-162/84. She was on room air on arrival. She was placed on oxygen via nasal cannula. Labs were obtained. Abnormal lab values include the following: D-dimer 0.70, sodium 147, carbon dioxide 40.7, glucose 207, calcium 8.2, alt 11. ABG: pH 7.370, pCO2 75, pO2 40, HC03 43.4, 02 Sat 73, base excess 14.7, Fi02 21. Covid, influenza, and RSV negative. Blood cultures x 2 were obtained. Results are pending. EKG reported: Sinus Rhythm. Rate=64. Chest x-ray reveals: Chest findings suggesting a viral respiratory tract infection versus bronchitis. No lobar infiltrates or pleural effusion seen. Please correlate medically. Cardiomegaly. Soft tissue prominence in the right hilum probably reflects an enlarged pulmonary artery. A chest CTA was obtained and revealed: 1. No evidence for pulmonary embolic disease. 2. No evidence for aortic aneurysm or aortic dissection. 3. No acute parenchymal infiltrate, pleural effusion, or pneumothorax seen. 4. No gross endobronchial obstructing lesion is seen. In the ER, she was given Zofran 4mg IV x 2 doses. We admitted patient for further evaluation and treatment of COPD exacerbation, respiratory distress with hypoxia and hypercapnia, and acute bronchitis. She was started on Rocephin 1g iv bid, pulmicort neb tx bid, atrovent neb tx q6h, Zofran 4mg iv q6h prn, humulin R sliding scale, Eliquis 5mg po bid, aspirin 81mg po hs, sinemet 1tab po bid, klonopin 1mg po bid prn, Pepcid 40mg po bid, diflucan 150mg po daily, Glucophage 500mg po bid, Lasix 40mg IV bid, protonix 40mg po bid, micro_k 20meq po BID, prednisone 40mg po daily, crestor 20mg po hs, sotalol 80mg po bid, and aldactone 25mg po daily. We have instructed her to wear the bipap throughout the day, as much as she can tolerate. Otherwise, We plan to follow up with AM labs and chest xray and continue to monitor patient. TIME SPENT ON CLINICAL ASSESSMENT, REVIEWING LABS AND IMAGING, DECISION MAKING, AND DOCUMENTATION GREATER THAN 75 MINUTES. - Past Medical History Past Medical History: Anxiety, CHF, COPD, Dyslipidemia, Hypertension Additional Medical History: Atrial Fibrillation, Sleep Apnea, Diarrhea, Constipation, H-pylori, Endometriosis, Fibromyalgia, Degernative Disc Disease, Cellutlitis, Lymphedema, elephantitis. - Past Surgical History Surgical History: Ortho Surgery Additional Surgical History: Lap Band, Tubal Ligation - Family History Family Medical History: Diabetes Mellitus, NC, Hypertension - Social History Does patient currently use any type of tobacco product: No Have you used tobacco products in the last 12 months: No Type of Tobacco Use: None Does any household member use tobacco: No Alcohol Use: None Drug Use: None - Medications Home Medications: meperidine [From Demerol] Allergy (Verified 02/19/17 02:07) CONTINUE taking the following medications ergocalciferol (vitamin D2) [Drisdol] 50,000 unit PO WEEKLY 11/29/20 [History] furosemide 40 mg PO DAILY PRN 11/29/20 [History] gabapentin 100 mg PO HS 11/29/20 [History] hydrocodone-acetaminophen 1 tab PO TID PRN 11/29/20 [History] scopolamine base 1 patch TRANSDERMAL Q3D PRN 11/29/20 [History] - Review of Systems Constitutional: Weakness Eyes: No Symptoms Reported ENT: No Symptoms Reported Respiratory: See HPI, Cough, Shortness of Breath, SOB with Excertion, Wheezing Cardiovascular: Light Headedness Gastrointestinal: See HPI, Nausea Genitourinary: No Symptoms Reported Musculoskeletal: No Symptoms Reported Skin: No Symptoms Reported Neurological: Weakness - Physical Exam Vital Signs: Temperature 98.6 F Pulse Rate [Right Brachial] 70 Pulse Rate 77 Respiratory Rate 22 Blood Pressure [Left Arm] 155/68 Blood Pressure 120/66 O2 Sat by Pulse Oximetry 92 Oriented: Normal Eyes: Normal Ear: Normal Nose: Normal Throat: Normal Respiratory: Wheezes Throughout Cardiovascular: Normal : Normal Auscultation: Bowel Sounds: Normal Palpation: Normal Tenderness: Normal Skin: Normal Musculoskeletal: Normal Psychiatric: Normal Mood Description: Calm Affect: Normal Speech Pattern: Clear - Assessment/Plan (1) COPD (chronic obstructive pulmonary disease) Qualifiers: COPD type: unspecified COPD Qualified Code(s): J44.9 - Chronic obstructive pulmonary disease, unspecified Status: Acute Plan: ADMIT, Rocephin 1g iv bid, pulmicort neb tx bid, atrovent neb tx q6h, Zofran 4mg iv q6h prn, humulin R sliding scale, Eliquis 5mg po bid, aspirin 81mg po hs, sinemet 1tab po bid, klonopin 1mg po bid prn, Pepcid 40mg po bid, diflucan 150mg po daily, Glucophage 500mg po bid, Lasix 40mg IV bid, protonix 40mg po bid, micro_k 20meq po BID, prednisone 40mg po daily, crestor 20mg po hs, sotalol 80mg po bid, and aldactone 25mg po daily. We have instructed her to wear the bipap throughout the day, as much as she can tolerate (2) Acute and chronic respiratory failure with hypercapnia Status: Acute (3) Hypoxia Status: Acute (4) Acute bronchitis Qualifiers: Bronchitis organism: unspecified organism Qualified Code(s): J20.9 - Acute bronchitis, unspecified Status: Acute - Allergies Allergies/Adverse Reactions: Allergies Allergy/AdvReac Type Severity Reaction Status Date / Time meperidine [From Demerol] Allergy Verified 02/19/17 02:07
[2020-11-29] MEDS: DIFLUCAN PO SCH (13:45)
[2020-11-29] MEDS: ZOFRAN INJ 4 MG VIAL IVP PRN ×2 (14:19→20:17)
[2020-11-29] MEDS: HumuLIN R SUBCUT PRN ×2 (16:44→20:29)
[2020-11-29] MEDS: LASIX IVP SCH (16:48)
[2020-11-29] MEDS: SNACK - Diabetic Appropriate PO SCH (19:56)
[2020-11-29] MEDS: ASPIRIN EC 81 MG PO SCH (20:20)
[2020-11-29] MEDS: CRESTOR TAB 10 MG PO SCH (20:21)
[2020-11-30] MEDS: Atrovent NEB TX 0.02% NEB SCH ×2 (00:15→05:47)
[2020-11-30 05:44] LABS: ABG BASE EXCESS 17.8 mmol/L (-2.0-2.0)
[2020-11-30 05:45] LABS: ABG ALLEN TEST POS; ABG HCO3 46.6 mmol/L (22-26)
[2020-11-30 05:57] LABS: BASOPHILS % (AUTO) 0.2 % (0.2-1.0); HEMATOCRIT 37.1 % (36.0-47.0); HEMOGLOBIN 12.2 g/dL (12.0-16.0); LYMPHOCYTES # (AUTO) 1.3 X10^3/uL (1.3-2.9); LYMPHOCYTES % (AUTO) 19.3 % (21.0-51.0); MEAN CORPUSCULAR HEMOGLOBIN 29.2 pg (27.0-34.0); MEAN CORPUSCULAR HGB CONC 32.8 g/dL (33.0-35.0); MEAN PLATELET VOLUME 10.6 fL (7.4-11.0); MONOCYTES # (AUTO) 0.8 x10^3/uL (0.3-0.8); NEUTROPHILS # (AUTO) 4.7 x10^3/uL (2.2-4.8); NEUTROPHILS % (AUTO) 68.5 % (42.0-75.0); PLATELET COUNT 161 X10^3/uL (150.0-450.0); RED BLOOD COUNT 4.17 X10^6/uL (3.5-5.4); RED CELL DISTRIBUTION WIDTH 13.6 % (11.6-16.5); WHITE BLOOD COUNT 6.8 X10^3/uL (3.6-10.0)
[2020-11-30 06:12] LABS: ALANINE AMINOTRANSFERASE 12 Units/L (12-78); ALBUMIN 3.1 g/dL (3.4-5.0); ALKALINE PHOSPHATASE 76 Units/L (46-116); ASPARTATE AMINO TRANSFERASE 11 Units/L (15-37); BLOOD UREA NITROGEN 9 mg/dL (7-18); CALCIUM 8.4 mg/dL (8.5-10.1); CARBON DIOXIDE 39.6 mmol/L (21-32); CHLORIDE 101 mmol/L (98-107); COR CA(FOR HYPOALB) 9.1 mg/dL (8.5-10.1); COR NA(FOR HYPERGLY) 146 mmol/L (136-145); CREATININE 0.72 mg/dL (0.55-1.02); SODIUM 144 mmol/L (136-145); TOTAL PROTEIN 6.3 g/dL (6.4-8.2); eGFR NON BLACK RACES > 60 (>60)
--- NOTE | 2020-11-30 06:25 | RAD ---
HISTORYFollow-up pneumoniaSTUDYChest AP [id number] chest x-ray and CTA chestFINDINGSThere is a right-sided port present. Heart is enlarged. No congestive heart failure is noted. No definite acute alveolar infiltrates, areas of consolidation, or pleural effusions are identified. Bony thorax is unremarkable.IMPRESSIONCardiomegaly without congestive heart failureNo definite infiltratesElectronically signed by: NIC FLEMING (Nov 30, 2020 06:23:41)
[2020-11-30] MEDS: ZOFRAN INJ 4 MG VIAL IVP PRN (08:32)
[2020-11-30] MEDS: PULMICORT NEB TX 0.5 MG NEB SCH (09:30)
[2020-11-30] MEDS ORDERED: GLUCOPHAGE ONE (10:13)
[2020-11-30] MEDS: BETAPACE AF PO SCH (10:21)
[2020-11-30] MEDS: ALDACTONE TAB 25 MG PO SCH (10:21)
[2020-11-30] MEDS: DIFLUCAN PO SCH (10:22)
[2020-11-30] MEDS: ELIQUIS PO SCH (10:22)
[2020-11-30] MEDS: GLUCOPHAGE PO SCH (10:22)
[2020-11-30] MEDS: PREDNISONE TAB 20 MG PO SCH (10:23)
[2020-11-30] MEDS: PEPCID TAB 40 MG PO SCH (10:23)
[2020-11-30] MEDS: MICRO K EXTEN CAP 10 MEQ PO SCH (10:23)
[2020-11-30] MEDS: LASIX IVP SCH (10:23)
[2020-11-30] MEDS: PROTONIX TAB 40 MG PO SCH (10:24)
[2020-11-30] MEDS: SINEMET (PLAIN) 25/100 MG PO SCH (10:25)
[2020-11-30] MEDS: ROCEPHIN VIAL 1 GRAM 1 G in NS 100 ML IV + SPIKE MINIBAG* 100 ML IV SCH (10:25)
[2020-11-30 12:45] VITALS: BP 118/56
== END 2020-11-30 13:13 | disposition home or self-care (01) | DRG 190 ==
LOC: ER 13:36 → MED/SURG 17:43
PROVIDERS: ADMIT Family Medicine; ATTEND Internal Medicine
DX: R06.02 Shortness of breath; R42 Dizziness and giddiness; J96.22 Acute and chronic respiratory failure with hypercapnia; I89.0 Lymphedema, not elsewhere classified; J96.21 Acute and chronic respiratory failure with hypoxia; J20.8 Acute bronchitis due to other specified organisms; J44.1 Chronic obstructive pulmonary disease with (acute) exacerbation; Z20.822 Contact with and (suspected) exposure to COVID-19

== ENCOUNTER 2021-10-10 07:17 | Inpatient (IN) ==
[2021-10-10] MEDS ORDERED: PHARMACY CONSULT - VANCOMYCIN XX SCH (08:00)
[2021-10-10 08:28] VITALS: BMI 64.0
[2021-10-10 08:45] LABS: BASOPHILS % (AUTO) 0.6 % (0.2-1.0); EOSINOPHILS # (AUTO) 0.1 x10^3/uL (0.0-0.2); EOSINOPHILS % (AUTO) 0.9 % (0.9-2.9); HEMATOCRIT 37.6 % (36.0-47.0); HEMOGLOBIN 12.6 g/dL (12.0-16.0); LYMPHOCYTES # (AUTO) 1.1 X10^3/uL (1.3-2.9); LYMPHOCYTES % (AUTO) 17.3 % (21.0-51.0); MEAN CORPUSCULAR HEMOGLOBIN 29.2 pg (27.0-34.0); MEAN CORPUSCULAR HGB CONC 33.4 g/dL (33.0-35.0); MEAN CORPUSCULAR VOLUME 87.3 fL (80.0-100.0); MEAN PLATELET VOLUME 9.2 fL (7.4-11.0); MONOCYTES # (AUTO) 0.7 x10^3/uL (0.3-0.8); NEUTROPHILS # (AUTO) 4.6 x10^3/uL (2.2-4.8); NEUTROPHILS % (AUTO) 70.2 % (42.0-75.0); RED CELL DISTRIBUTION WIDTH 14.2 % (11.6-16.5); WHITE BLOOD COUNT 6.6 X10^3/uL (3.6-10.0)
[2021-10-10 08:48] LABS: ERYTHROCYTE SEDIMENTATION RATE 91 MM/HOUR (0-20)
[2021-10-10] MEDS ORDERED: STERILE WATER IRRIGATION IR ONE (09:03)
[2021-10-10 09:04] LABS: LACTIC ACID 1.2 mmol/L (0.4-2.0)
[2021-10-10 09:13] LABS: ALANINE AMINOTRANSFERASE 18 Units/L (12-78); ALBUMIN 2.6 g/dL (3.4-5.0); ALKALINE PHOSPHATASE 131 Units/L (46-116); ASPARTATE AMINO TRANSFERASE 17 Units/L (15-37); BLOOD UREA NITROGEN 13 mg/dL (7-18); CALCIUM 9.2 mg/dL (8.5-10.1); CARBON DIOXIDE 37.2 mmol/L (21-32); CHLORIDE 96 mmol/L (98-107); COR CA(FOR HYPOALB) 10.3 mg/dL (8.5-10.1); COR NA(FOR HYPERGLY) 140 mmol/L (136-145); SODIUM 137 mmol/L (136-145); TOTAL PROTEIN 6.8 g/dL (6.4-8.2); eGFR NON BLACK RACES > 60 (>60)
[2021-10-10] MEDS: VANCOMYCIN IV *PREMIX 1 G/200 ML BAG 1 G/200 ML PIGGYBACK IV SCH ×4 (10:00→22:15)
[2021-10-10] MEDS ORDERED: NS 1,000 ML IV 1,000 ML ONE (10:38)
[2021-10-10] MEDS ORDERED: POLYMYXIN B SULFATE ONE (10:38)
[2021-10-10] MEDS ORDERED: BETADINE SOLN ONE (10:38)
[2021-10-10] MEDS ORDERED: DIPRIVAN VIAL 20 ML ONE (10:41)
[2021-10-10] MEDS ORDERED: VERSED ONE ×2 (10:41→11:21)
[2021-10-10] MEDS ORDERED: FENTANYL VIAL INJ 100 mcg ONE (10:41)
[2021-10-10] MEDS ORDERED: VANCOMYCIN IV *PREMIX 1 G/200 ML BAG 1 G/200 ML PIGGYBACK IV ONE (10:54)
[2021-10-10] MEDS ORDERED: XYLOCAINE 1 % (PLAIN) ONE (11:10)
[2021-10-10] MEDS ORDERED: POTASSIUM CHL 60 MEQ/NS 0.45% 500 ML IV PRN (11:10)
[2021-10-10] MEDS ORDERED: K-DUR TAB 20 MEQ PO PRN (11:10)
[2021-10-10] MEDS ORDERED: KLOR-CON PO PRN (11:10)
[2021-10-10] MEDS ORDERED: MICRO K EXTEN CAP 10 MEQ PO PRN (11:10)
[2021-10-10] MEDS ORDERED: POTASSIUM CHL 40 MEQ/NS 0.45% 500 ML IV PRN (11:10)
[2021-10-10] MEDS ORDERED: POTASSIUM CHLORIDE LIQ 20 MEQ UDC PO PRN (11:10)
[2021-10-10] MEDS ORDERED: K-RIDER 10 MEQ/NS 100 ML 10 MEQ/100 ML BAG IV PRN (11:10)
[2021-10-10] MEDS ORDERED: NS 250 ML IV 0 ML IV ONE (12:00)
[2021-10-10] MEDS: PROTONIX INJ 40 MG VIAL IVP SCH ×2 (12:12→21:59)
--- NOTE | 2021-10-10 12:29 | RAD ---
HISTORYPAIN. REDNESS AT PORT SITE. FEVERSTUDYCHEST x-ray, 1 VIEWCOMPARISONX-ray 06/21/2021FINDINGSThe trachea is midline. The cardiac silhouette is unremarkable .Lungs appear clear. No pneumothorax or pleural effusion is seen.No acute bony abnormality is seen.Port catheter displays no abnormalities. Its tip is in the region of the mid SVC.IMPRESSIONNo acute cardiopulmonary abnormality is seen.Electronically signed by: Eamon Abdi (Oct 10, 2021 12:28:18)
[2021-10-10] MEDS: DIFLUCAN 200 MG IV PREMIX* 200 MG/100 ML BAG IV SCH (12:42)
[2021-10-10] MEDS: ZOSYN VIAL 3.375 GRAMS 3.375 G in NS 100 ML IV 100 ML IV SCH ×3 (13:46→22:15)
[2021-10-10] MEDS: PERCOCET TAB 5/325 MG PO PRN ×2 (17:14→22:15)
[2021-10-10] MEDS: LASIX PO SCH (17:16)
[2021-10-10] MEDS: NEURONTIN CAP 100 MG PO SCH (21:59)
[2021-10-10] MEDS: ASPIRIN EC 81 MG PO SCH (21:59)
[2021-10-10] MEDS: SINEMET (PLAIN) 25/100 MG PO SCH (21:59)
[2021-10-10] MEDS: PATIENT'S HOME MEDICATION PO SCH (21:59)
[2021-10-10] MEDS: ELIQUIS PO SCH (21:59)
[2021-10-10] MEDS: CRESTOR TAB 10 MG PO SCH (21:59)
[2021-10-10] MEDS: PEPCID TAB 40 MG PO SCH (21:59)
[2021-10-10] MEDS: NovoLIN R (or HumuLIN R) SC PRN (21:59)
[2021-10-11] MEDS: PERCOCET TAB 5/325 MG PO PRN ×4 (03:19→20:23)
[2021-10-11 04:31] LABS: BASOPHILS % (AUTO) 0.4 % (0.2-1.0); EOSINOPHILS # (AUTO) 0.1 x10^3/uL (0.0-0.2); EOSINOPHILS % (AUTO) 1.1 % (0.9-2.9); HEMATOCRIT 38.4 % (36.0-47.0); HEMOGLOBIN 12.9 g/dL (12.0-16.0); LYMPHOCYTES # (AUTO) 1.6 X10^3/uL (1.3-2.9); LYMPHOCYTES % (AUTO) 22.7 % (21.0-51.0); MEAN CORPUSCULAR HEMOGLOBIN 29.2 pg (27.0-34.0); MEAN CORPUSCULAR HGB CONC 33.5 g/dL (33.0-35.0); MEAN CORPUSCULAR VOLUME 87.1 fL (80.0-100.0); MONOCYTES # (AUTO) 0.9 x10^3/uL (0.3-0.8); MONOCYTES % (AUTO) 12.3 % (0.0-13.0); NEUTROPHILS # (AUTO) 4.5 x10^3/uL (2.2-4.8); NEUTROPHILS % (AUTO) 63.5 % (42.0-75.0); RED BLOOD COUNT 4.41 X10^6/uL (3.5-5.4); RED CELL DISTRIBUTION WIDTH 14.2 % (11.6-16.5)
[2021-10-11 04:39] LABS: ALANINE AMINOTRANSFERASE 8 Units/L (12-78); ALBUMIN 2.6 g/dL (3.4-5.0); ALKALINE PHOSPHATASE 137 Units/L (46-116); ASPARTATE AMINO TRANSFERASE 14 Units/L (15-37); BLOOD UREA NITROGEN 12 mg/dL (7-18); CARBON DIOXIDE 33.1 mmol/L (21-32); CHLORIDE 93 mmol/L (98-107); COR CA(FOR HYPOALB) 10.1 mg/dL (8.5-10.1); COR NA(FOR HYPERGLY) 135 mmol/L (136-145); CREATININE 0.93 mg/dL (0.55-1.02); SODIUM 132 mmol/L (136-145); TOTAL PROTEIN 6.8 g/dL (6.4-8.2); eGFR NON BLACK RACES > 60 (>60)
[2021-10-11] MEDS ORDERED: PHARMACY COMMENT IV NR (05:30)
[2021-10-11] MEDS: VANCOMYCIN IV *PREMIX 1 G/200 ML BAG 1 G/200 ML PIGGYBACK IV SCH ×3 (06:47→21:12)
[2021-10-11] MEDS: ZOSYN VIAL 3.375 GRAMS 3.375 G in NS 100 ML IV 100 ML IV SCH ×3 (06:47→21:12)
[2021-10-11] MEDS ORDERED: DILAUDID INJ IM ONE (07:37)
[2021-10-11] MEDS ORDERED: PERCOCET TAB 5/325 MG PO PRN (07:37)
[2021-10-11] MEDS ORDERED: DILAUDID INJ ONE (07:40)
[2021-10-11] MEDS: ELIQUIS PO SCH ×2 (08:15→20:27)
[2021-10-11] MEDS: BETAPACE AF PO SCH ×2 (08:15→21:12)
[2021-10-11] MEDS: LASIX PO SCH ×2 (08:15→16:30)
[2021-10-11] MEDS: SINEMET (PLAIN) 25/100 MG PO SCH ×4 (08:15→21:12)
[2021-10-11] MEDS: PROTONIX INJ 40 MG VIAL IVP SCH ×2 (08:15→20:27)
[2021-10-11] MEDS: PEPCID TAB 40 MG PO SCH ×2 (08:15→20:24)
[2021-10-11] MEDS: PATIENT'S HOME MEDICATION PO SCH (08:33)
[2021-10-11] MEDS ORDERED: ZOFRAN TAB 4 MG PO PRN (09:21)
--- NOTE | 2021-10-11 09:32 | DR.PROGNOT ---
Hospital Progress Notes - Progress Note for Day of: Progress Note Date: 10/11/21 - Chief Complaint Chief Complaint: c/o incisional pain .. normal CBC and CMP .. BS was 230 today . dressing was changed and packing was left in place .. afebrile .. - Past Medical Family Social History Past Med/Fam/Surg Hx: No changes since H&P Allergies: Allergies meperidine [From Demerol] Allergy (Verified 02/19/17 02:07) - Review Of Systems ROS: No change since H&P - Vital Signs Vital Signs: Temperature 97.5 F Pulse Rate [Left Brachial] 80 Pulse Rate 82 Respiratory Rate 18 Blood Pressure [Right Arm] 137/65 Blood Pressure [Left Arm] 115/55 Blood Pressure 134/74 O2 Sat by Pulse Oximetry 93 - Physical Exam Oriented: Normal Eyes: Normal Ear: Normal Nose: Normal Respiratory: Normal Cardiovascular: Normal GI:Auscultation: Normal GI:Palpation: Normal GI: Tenderness: Normal Skin: Other (no active infection now . no necrosis or abscess formation .. packing is in place .) Speech Pattern: Clear, Appropriate - Laboratory and Diagnostics Result Diagrams: 10/11/21 03:36 10/11/21 03:36 Labs: 10/10/21 11:30 Surgery Wound Gram Stain - Final 10/10/21 11:30 Surgery Wound Culture - Preliminary 10/10/21 11:30 Catheter Tip - Other - Preliminary Laboratory WBC 7.0 X10^3/uL (3.6-10.0) 10/11/21 03:36 RBC 4.41 X10^6/uL (3.5-5.4) 10/11/21 03:36 Hgb 12.9 g/dL (12.0-16.0) 10/11/21 03:36 Hct 38.4 % (36.0-47.0) 10/11/21 03:36 MCV 87.1 fL (80.0-100.0) 10/11/21 03:36 MCH 29.2 pg (27.0-34.0) 10/11/21 03:36 MCHC 33.5 g/dL (33.0-35.0) 10/11/21 03:36 RDW 14.2 % (11.6-16.5) 10/11/21 03:36 Plt Count 239 X10^3/uL (150.0-450.0) 10/11/21 03:36 MPV 9.0 fL (7.4-11.0) 10/11/21 03:36 Neut % (Auto) 63.5 % (42.0-75.0) 10/11/21 03:36 Lymph % (Auto) 22.7 % (21.0-51.0) 10/11/21 03:36 [place] % (Auto) 12.3 % (0.0-13.0) 10/11/21 03:36 Eos % (Auto) 1.1 % (0.9-2.9) 10/11/21 03:36 Baso % (Auto) 0.4 % (0.2-1.0) 10/11/21 03:36 Neut # (Auto) 4.5 x10^3/uL (2.2-4.8) 10/11/21 03:36 Lymph # (Auto) 1.6 X10^3/uL (1.3-2.9) 10/11/21 03:36 [place] # (Auto) 0.9 x10^3/uL (0.3-0.8) H 10/11/21 03:36 Eos # (Auto) 0.1 x10^3/uL (0.0-0.2) 10/11/21 03:36 Baso # (Auto) 0.0 X10^3/uL (0.0-0.1) 10/11/21 03:36 Absolute Nucleated RBC 0.1 /100WBC 10/11/21 03:36 ESR 91 MM/HOUR (0-20) H 10/10/21 08:19 Sodium 132 mmol/L (136-145) L 10/11/21 03:36 Corrected Sodium 135 mmol/L (136-145) L 10/11/21 03:36 Potassium 4.2 mmol/L (3.5-5.1) 10/11/21 03:36 Chloride 93 mmol/L (98-107) L 10/11/21 03:36 Carbon Dioxide 33.1 mmol/L (21-32) H 10/11/21 03:36 BUN 12 mg/dL (7-18) 10/11/21 03:36 Creatinine 0.93 mg/dL (0.55-1.02) 10/11/21 03:36 Est GFR (MDRD) Af Amer > 60 (>60) 10/11/21 03:36 Est GFR (MDRD) Non-Af > 60 (>60) 10/11/21 03:36 Glucose 230 mg/dL (65-99) H 10/11/21 03:36 POC Glucose (mg/dL) 442 mg/dL (65-99) H 10/10/21 20:55 Hemoglobin A1c 10.5 % 10/10/21 08:19 Lactic Acid 1.2 mmol/L (0.4-2.0) 10/10/21 08:19 Calcium 9.0 mg/dL (8.5-10.1) 10/11/21 03:36 Corrected Calcium 10.1 mg/dL (8.5-10.1) 10/11/21 03:36 Magnesium 2.3 mg/dL (1.7-2.9) 10/10/21 08:19 Total Bilirubin 0.40 mg/dL (0.2-1.0) 10/11/21 03:36 AST 14 Units/L (15-37) L 10/11/21 03:36 ALT 8 Units/L (12-78) L 10/11/21 03:36 Alkaline Phosphatase 137 Units/L (46-116) H 10/11/21 03:36 C-Reactive Protein 58.00 mg/L (0-3.0) H 10/11/21 03:36 B-Natriuretic Peptide 118 pg/mL (0-79) H 10/10/21 08:19 Total Protein 6.8 g/dL (6.4-8.2) 10/11/21 03:36 Albumin 2.6 g/dL (3.4-5.0) L 10/11/21 03:36 Globulin 4.2 g/dL (2.5-4.5) 10/11/21 03:36 Albumin/Globulin Ratio 0.6 Ratio (1.1-2.1) L 10/11/21 03:36 SARS-CoV-2 (PCR) Negative (NEGATIVE) 10/10/21 09:30 - Assessment and Plan 1: infected hematoma and port . s/p removal of port . DM and morbid obesity .. same local care and IV ABT ..
--- NOTE | 2021-10-11 09:40 | DR.UPDATE ---
H&P Update History and Physical Update: History and Physical reviewed and patient examined. Changes noted: Yes with the following: TIME SPENT ON CLINICAL ASSESSMENT, REVIEWING LABS AND IMAGING, DECISION MAKING, AND DOCUMENTATION GREATER THAN 45 MINUTES. WAS A DIRECT ADMISSION OBSERVATION STATUS. SHE PRESENTED TO THE OFFICE ON 10/06/21 WITH COMPLAINTS OF RIGHT SHOULDER AND CHEST WALL PAIN. PAIN WAS DESCRIBED SHARP AND STABBING. SHE DENIED INJURY. AT THE TIME, THERE WAS NO REDNESS OR SWELLING TO CHEST WALL OR SHOULDER. UPON REASSESSMENT TODAY, RIGHT ANTRIOR CHEST WALL, RIGHT SIDE NECK, AND SHOULDER WERE NOTED WITH ERYTHEMA AND EDEMA. MOST OF THE REDNESS WAS DIRECTLY ON TOP OF HER PORT A CATH. THERE WAS TENDERNESS NOTED TO THE SITE. WE ADMITTED PATIENT FOR FURTHER EVALUATION AND TREATMENT OF CHEST WALL CELLULITIS DUE TO A POSSIBLE INFECTED PORT. ON ADMISSION, VITALS WERE 97.7-85-20-95%-143/67. LABS WERE OBTAINED. WBC 6.6, RBC 4.30, HGB 12.6, HCT 37.6, SODIUM 137, POTASSIUM 5.0, CHLORIDE 96, CARBON DIOXIDE 37.2, BUN 13, CREATININE 0.90, GLUCOSE 225, LACTIC ACIC 1.2, MAGNESIUM 2.3, AST 17, ALT 18, ALK PHOS 131, CRP 79.40, BNP 118, TOTAL PROTEIN 6.8, ALBUMIN 2.6. BLOOD CULTURES WERE SET UP. COVID-19 NEGATIVE. A CHEST XRAY WAS OBTAINED AND REVEALED: No acute cardiopulmonary abnormality is seen. EKG REVEALED: NSR WITH HR 82. SHE WAS STARTED ON VANCOMYCIN 1G IV Q8H, ZOSYN 3.375G IV TID, DIFLUCAN 200MG IV DAILY, PROTONIX 40MG IV BID, HUMULIN R SLIDING SCALE, THE POTASSIUM PROTOCOLS, AND HER HOME MEDICATIONS WERE RESUMED. WE PLANNED TO CONSULT , GENERAL SURGEON DUE TO POSSIBLE INFECTED PORT. OTHERWISE, WE WILL FOLLOW-UP WITH AM LABS AND CONTINUE TO MONITOR. TIME SPENT ON CLINICAL ASSESS MENT, REVIEWING LABS AND IMAGING, DECISION MAKING, AND DOCUMENTATION GREATER THAN 75 MINUTES.
[2021-10-11] MEDS ORDERED: NS 250 ML IV 250 ML IV ONE (10:20)
[2021-10-11] MEDS: DIFLUCAN 200 MG IV PREMIX* 200 MG/100 ML BAG IV SCH (10:30)
[2021-10-11] MEDS ORDERED: DILAUDID INJ IVP PRN (10:52)
[2021-10-11] MEDS: NovoLIN R (or HumuLIN R) SC PRN ×2 (12:15→17:29)
[2021-10-11] MEDS: ALDACTONE TAB 25 MG PO SCH (12:23)
[2021-10-11 13:54] LABS: CREATININE 0.98 mg/dL (0.55-1.02); VANCOMYCIN,TROUGH 12.2 ug/mL (15-20)
[2021-10-11] MEDS: MILK OF MAGNESIA PO SCH ×2 (14:06→20:25)
[2021-10-11] MEDS ORDERED: GLUCOPHAGE ONE (20:17)
[2021-10-11] MEDS: ASPIRIN EC 81 MG PO SCH (20:22)
[2021-10-11] MEDS: SNACK - Diabetic Appropriate PO SCH (20:22)
[2021-10-11] MEDS: RESTORIL CAP 15 MG PO PRN (20:23)
[2021-10-11] MEDS: NEURONTIN CAP 100 MG PO SCH (20:24)
[2021-10-11] MEDS: CRESTOR TAB 10 MG PO SCH (20:24)
[2021-10-11] MEDS: LANTUS SC SCH (20:26)
[2021-10-11] MEDS: GLUCOPHAGE PO SCH (20:27)
[2021-10-12] MEDS: PERCOCET TAB 5/325 MG PO PRN ×4 (00:16→21:55)
[2021-10-12 04:23] LABS: BASOPHILS % (AUTO) 0.4 % (0.2-1.0); EOSINOPHILS # (AUTO) 0.1 x10^3/uL (0.0-0.2); HEMATOCRIT 34.7 % (36.0-47.0); HEMOGLOBIN 11.5 g/dL (12.0-16.0); LYMPHOCYTES # (AUTO) 1.5 X10^3/uL (1.3-2.9); LYMPHOCYTES % (AUTO) 25.3 % (21.0-51.0); MEAN CORPUSCULAR HEMOGLOBIN 28.8 pg (27.0-34.0); MEAN CORPUSCULAR HGB CONC 33.3 g/dL (33.0-35.0); MEAN CORPUSCULAR VOLUME 86.4 fL (80.0-100.0); MONOCYTES # (AUTO) 0.6 x10^3/uL (0.3-0.8); MONOCYTES % (AUTO) 10.6 % (0.0-13.0); NEUTROPHILS # (AUTO) 3.6 x10^3/uL (2.2-4.8); NEUTROPHILS % (AUTO) 61.7 % (42.0-75.0); RED BLOOD COUNT 4.01 X10^6/uL (3.5-5.4); RED CELL DISTRIBUTION WIDTH 13.9 % (11.6-16.5); WHITE BLOOD COUNT 5.8 X10^3/uL (3.6-10.0)
[2021-10-12 04:33] LABS: CHLORIDE 95 mmol/L (98-107)
[2021-10-12 05:01] LABS: ALANINE AMINOTRANSFERASE 14 Units/L (12-78); ALBUMIN 2.3 g/dL (3.4-5.0); ALKALINE PHOSPHATASE 128 Units/L (46-116); ASPARTATE AMINO TRANSFERASE 15 Units/L (15-37); BLOOD UREA NITROGEN 12 mg/dL (7-18); CALCIUM 8.9 mg/dL (8.5-10.1); CARBON DIOXIDE 33.6 mmol/L (21-32); COR CA(FOR HYPOALB) 10.3 mg/dL (8.5-10.1); COR NA(FOR HYPERGLY) 136 mmol/L (136-145); CREATININE 0.84 mg/dL (0.55-1.02); SODIUM 133 mmol/L (136-145); TOTAL PROTEIN 6.1 g/dL (6.4-8.2); eGFR NON BLACK RACES > 60 (>60)
[2021-10-12] MEDS: SINEMET (PLAIN) 25/100 MG PO SCH ×3 (05:22→21:15)
[2021-10-12] MEDS: VANCOMYCIN IV *PREMIX 1 G/200 ML BAG 1 G/200 ML PIGGYBACK IV SCH ×3 (05:22→21:15)
[2021-10-12] MEDS: ZOSYN VIAL 3.375 GRAMS 3.375 G in NS 100 ML IV 100 ML IV SCH (05:59)
[2021-10-12] MEDS: NovoLIN R (or HumuLIN R) SC PRN ×3 (06:00→16:24)
[2021-10-12] MEDS: ALDACTONE TAB 25 MG PO SCH (09:22)
[2021-10-12] MEDS: LASIX PO SCH ×2 (09:22→16:21)
[2021-10-12] MEDS: PROTONIX INJ 40 MG VIAL IVP SCH ×2 (09:22→21:14)
[2021-10-12] MEDS: ELIQUIS PO SCH ×2 (09:23→21:12)
[2021-10-12] MEDS: DIFLUCAN 200 MG IV PREMIX* 200 MG/100 ML BAG IV SCH (09:23)
[2021-10-12] MEDS: PEPCID TAB 40 MG PO SCH ×2 (09:23→21:14)
[2021-10-12] MEDS: BETAPACE AF PO SCH ×2 (09:24→21:14)
[2021-10-12] MEDS ORDERED: PHENERGAN INJ 25 MG IM PRN (10:10)
[2021-10-12] MEDS: MILK OF MAGNESIA PO SCH ×2 (11:19→21:13)
--- NOTE | 2021-10-12 14:45 | DR.PROGNOT ---
Hospital Progress Notes - Progress Note for Day of: Progress Note Date: 10/12/21 - Chief Complaint Chief Complaint: less pain today .. no drainage .. normal CBC and CMP .. BS was 255 today.. A1C 10.5. dressing and packing were changed .. - Past Medical Family Social History Past Med/Fam/Surg Hx: No changes since H&P Allergies: Allergies meperidine [From Demerol] Allergy (Verified 02/19/17 02:07) - Review Of Systems ROS: No change since H&P - Vital Signs Vital Signs: Temperature 97.8 F Pulse Rate [Left Brachial] 58 Pulse Rate 82 Respiratory Rate 20 Blood Pressure [Right Arm] 99/49 Blood Pressure [Left Arm] 115/55 Blood Pressure 134/74 O2 Sat by Pulse Oximetry 94 - Physical Exam Oriented: Normal Eyes: Normal Ear: Normal Nose: Normal Respiratory: Normal Cardiovascular: Normal GI:Auscultation: Normal GI:Palpation: Normal GI: Tenderness: Normal Skin: Other (no active infection now . no necrosis or abscess formation .. ) Speech Pattern: Clear, Appropriate - Laboratory and Diagnostics Result Diagrams: 10/12/21 03:36 10/12/21 03:36 Labs: 10/10/21 08:23 Blood Blood Culture - Preliminary 10/10/21 08:19 Blood Blood Culture - Preliminary 10/10/21 11:30 Surgery Wound Gram Stain - Final 10/10/21 11:30 Surgery Wound Culture - Preliminary 10/10/21 11:30 Catheter Tip - Other - Preliminary Laboratory WBC 5.8 X10^3/uL (3.6-10.0) 10/12/21 03:36 RBC 4.01 X10^6/uL (3.5-5.4) 10/12/21 03:36 Hgb 11.5 g/dL (12.0-16.0) L 10/12/21 03:36 Hct 34.7 % (36.0-47.0) L 10/12/21 03:36 MCV 86.4 fL (80.0-100.0) 10/12/21 03:36 MCH 28.8 pg (27.0-34.0) 10/12/21 03:36 MCHC 33.3 g/dL (33.0-35.0) 10/12/21 03:36 RDW 13.9 % (11.6-16.5) 10/12/21 03:36 Plt Count 206 X10^3/uL (150.0-450.0) 10/12/21 03:36 MPV 9.0 fL (7.4-11.0) 10/12/21 03:36 Neut % (Auto) 61.7 % (42.0-75.0) 10/12/21 03:36 Lymph % (Auto) 25.3 % (21.0-51.0) 10/12/21 03:36 [place] % (Auto) 10.6 % (0.0-13.0) 10/12/21 03:36 Eos % (Auto) 2.0 % (0.9-2.9) 10/12/21 03:36 Baso % (Auto) 0.4 % (0.2-1.0) 10/12/21 03:36 Neut # (Auto) 3.6 x10^3/uL (2.2-4.8) 10/12/21 03:36 Lymph # (Auto) 1.5 X10^3/uL (1.3-2.9) 10/12/21 03:36 [place] # (Auto) 0.6 x10^3/uL (0.3-0.8) 10/12/21 03:36 Eos # (Auto) 0.1 x10^3/uL (0.0-0.2) 10/12/21 03:36 Baso # (Auto) 0.0 X10^3/uL (0.0-0.1) 10/12/21 03:36 Absolute Nucleated RBC 0.0 /100WBC 10/12/21 03:36 ESR 91 MM/HOUR (0-20) H 10/10/21 08:19 Sodium 133 mmol/L (136-145) L 10/12/21 03:36 Corrected Sodium 136 mmol/L (136-145) 10/12/21 03:36 Potassium 4.4 mmol/L (3.5-5.1) 10/12/21 03:36 Chloride 95 mmol/L (98-107) L 10/12/21 03:36 Carbon Dioxide 33.6 mmol/L (21-32) H 10/12/21 03:36 BUN 12 mg/dL (7-18) 10/12/21 03:36 Creatinine 0.84 mg/dL (0.55-1.02) 10/12/21 03:36 Est GFR (MDRD) Af Amer > 60 (>60) 10/12/21 03:36 Est GFR (MDRD) Non-Af > 60 (>60) 10/12/21 03:36 Glucose 242 mg/dL (65-99) H 10/12/21 03:36 POC Glucose (mg/dL) 255 mg/dL (65-99) H 10/12/21 11:24 Hemoglobin A1c 10.5 % 10/10/21 08:19 Lactic Acid 1.2 mmol/L (0.4-2.0) 10/10/21 08:19 Calcium 8.9 mg/dL (8.5-10.1) 10/12/21 03:36 Corrected Calcium 10.3 mg/dL (8.5-10.1) H 10/12/21 03:36 Magnesium 2.3 mg/dL (1.7-2.9) 10/10/21 08:19 Total Bilirubin 0.20 mg/dL (0.2-1.0) 10/12/21 03:36 AST 15 Units/L (15-37) 10/12/21 03:36 ALT 14 Units/L (12-78) 10/12/21 03:36 Alkaline Phosphatase 128 Units/L (46-116) H 10/12/21 03:36 C-Reactive Protein 34.80 mg/L (0-3.0) H 10/12/21 03:36 B-Natriuretic Peptide 118 pg/mL (0-79) H 10/10/21 08:19 Total Protein 6.1 g/dL (6.4-8.2) L 10/12/21 03:36 Albumin 2.3 g/dL (3.4-5.0) L 10/12/21 03:36 Globulin 3.8 g/dL (2.5-4.5) 10/12/21 03:36 Albumin/Globulin Ratio 0.6 Ratio (1.1-2.1) L 10/12/21 03:36 Vancomycin Trough 12.2 ug/mL (15-20) L 10/11/21 13:16 SARS-CoV-2 (PCR) Negative (NEGATIVE) 10/10/21 09:30 - Assessment and Plan 1: infected port . s/p removal of port . DM and morbid obesity .. same local care and IV ABT ( Vancomycin ) pending final C&S ..
[2021-10-12] MEDS ORDERED: GLUCOPHAGE ONE (20:08)
[2021-10-12] MEDS: GLUCOPHAGE PO SCH (21:12)
[2021-10-12] MEDS: ASPIRIN EC 81 MG PO SCH (21:12)
[2021-10-12] MEDS: CRESTOR TAB 10 MG PO SCH (21:12)
[2021-10-12] MEDS: NEURONTIN CAP 100 MG PO SCH (21:13)
[2021-10-12] MEDS: LANTUS SC SCH (21:13)
[2021-10-12] MEDS: SNACK - Diabetic Appropriate PO SCH (21:14)
[2021-10-12 21:15] LABS: CREATININE 0.77 mg/dL (0.55-1.02); VANCOMYCIN,TROUGH 17.6 ug/mL (15-20)
[2021-10-12] MEDS: RESTORIL CAP 15 MG PO PRN (21:55)
--- NOTE | 2021-10-12 22:37 | PCM.PROG ---
Progress Note - Progress Note for Day of Date of Exam: 10/11/21 - Subjective Subjective: WAS ADMITTED FOR TREATMENT OF RIGHT CHEST WALL CELLULITIS AND HEMATOMA TO PORT SITE. SHE IS DAY 1 STATUS POST PORT REMOVAL BY . TODAY, SHE IS ALERT AND ORIENTED, SITTING UP IN CHAIR ON MORNING ROUNDS. SHE COMPLAINS OF CHEST WALL TENDERNESS AND LOW BACK PAIN THIS MORNING. SHE HAS BEEN AFEBRILE THROUGHOUT THE NIGHT. ON EXAMINATION, HEART IS REGULAR IN RATE AND RHYTHM. BILATERAL LUNGS NOTED WITH DIMINISHED LUNG SOUNDS THROUGHOUT. THERE CONTINUES TO BE ERYTHEMA AND EDEMA TO RIGHT CHEST WALL. REDNESS TO RIGHT SIDE NECK HAS DECREASED. ABDOMEN IS ROUND, SOFT, AND NON-TENDER WITH NORMAL BOWEL SOUNDS NOTED IN ALL QUADRANTS. LOWER EXTREMITY EDEMA NOTED, BUT THIS IS NORMAL FOR HER. HER VITALS THIS MORNING ARE: 97.6-79-20-95%-140/83. LABS WERE OBTAINED. WBC 7.0, HGB 12.9, HCT 38.4, PLT COUNT 239, SODIUM 132, POTASSIUM 4.2, BUN 12, CREATININE 0.93, GLUCOSE 230, TOTAL BILI 0.40, AST 14, ALT 8, ALK PHOS 137, CRP 58.0, TOTAL PROTEIN 6.8, ALBUMIN 2.6. HER BLOOD GLUCOSE LEVELS HAVE BEEN ELEVATED THROUGHOUT THE NIGHT. SHE IS CURRENTLY RECEIVING VANCOMYCIN 1G IV Q8H, ZOSYN 3.375G IV TID, DIFLUCAN 200MG IV DAILY, PROTONIX 40MG IV BID, HUMULIN R SLIDING SCALE, THE POTASSIUM PROTOCOLS, AND HER HOME MEDICATIONS WERE RESUMED. TODAY, WE WILL ADD LANTUS 10 UNITS SC HS. OTHERWISE, WE PLAN TO FOLLOW-UP WITH AM LABS AND CONTINUE TO MONITOR. TIME SPENT ON CLINICAL ASSESSMENT, REVIEWING LABS AND IMAGING, DECISION MAKING, AND DOCUMENTATION GREATER THAN 45 MINUTES. - Past Medical Family Social History Past Med/Fam/Surg Hx: No changes since H&P Allergies: Allergies meperidine [From Demerol] Allergy (Verified 02/19/17 02:07) - Review of Systems ROS: No change since H&P - Vital Signs and I&O's Vital Signs: Temperature 97.7 F Pulse Rate [Left Brachial] 70 Pulse Rate 82 Respiratory Rate 18 Blood Pressure [Right Arm] 133/62 Blood Pressure [Left Arm] 115/55 Blood Pressure 134/74 O2 Sat by Pulse Oximetry 92 Intake and Output: Intake & Output 10/10/21 10/11/21 10/12/21 10/13/21 11:59 11:59 11:59 11:59 Intake Total 1000 / 1000 2228 / 2229 2436 / 2436 1400 / 1400 Output Total 1000 / 1000 Balance 0 / 0 2228 / 222 2436 / 2436 1400 / 1400 - Physical Exam Oriented: Normal Eyes: Normal Ear: Normal Nose: Normal Respiratory: Normal Cardiovascular: Edema (BLE) Auscultation: Bowel Sounds: Normal Palpation: Normal Tenderness: Normal Skin: Other (REDNESS TO CHEST WALL. no necrosis or abscess formation .. ) Musculoskeletal: Normal Psychiatric: Normal Mood Description: Calm Affect: Normal Speech Pattern: Clear, Appropriate - Laboratory and Diagnostics Result Diagrams: 10/12/21 03:36 10/12/21 20:51 Labs: 10/10/21 08:23 Blood Blood Culture - Preliminary 10/10/21 08:19 Blood Blood Culture - Preliminary 10/10/21 11:30 Surgery Wound Gram Stain - Final 10/10/21 11:30 Surgery Wound Culture - Preliminary 10/10/21 11:30 Catheter Tip - Other - Preliminary Laboratory WBC 5.8 X10^3/uL (3.6-10.0) 10/12/21 03:36 RBC 4.01 X10^6/uL (3.5-5.4) 10/12/21 03:36 Hgb 11.5 g/dL (12.0-16.0) L 10/12/21 03:36 Hct 34.7 % (36.0-47.0) L 10/12/21 03:36 MCV 86.4 fL (80.0-100.0) 10/12/21 03:36 MCH 28.8 pg (27.0-34.0) 10/12/21 03:36 MCHC 33.3 g/dL (33.0-35.0) 10/12/21 03:36 RDW 13.9 % (11.6-16.5) 10/12/21 03:36 Plt Count 206 X10^3/uL (150.0-450.0) 10/12/21 03:36 MPV 9.0 fL (7.4-11.0) 10/12/21 03:36 Neut % (Auto) 61.7 % (42.0-75.0) 10/12/21 03:36 Lymph % (Auto) 25.3 % (21.0-51.0) 10/12/21 03:36 [place] % (Auto) 10.6 % (0.0-13.0) 10/12/21 03:36 Eos % (Auto) 2.0 % (0.9-2.9) 10/12/21 03:36 Baso % (Auto) 0.4 % (0.2-1.0) 10/12/21 03:36 Neut # (Auto) 3.6 x10^3/uL (2.2-4.8) 10/12/21 03:36 Lymph # (Auto) 1.5 X10^3/uL (1.3-2.9) 10/12/21 03:36 [place] # (Auto) 0.6 x10^3/uL (0.3-0.8) 10/12/21 03:36 Eos # (Auto) 0.1 x10^3/uL (0.0-0.2) 10/12/21 03:36 Baso # (Auto) 0.0 X10^3/uL (0.0-0.1) 10/12/21 03:36 Absolute Nucleated RBC 0.0 /100WBC 10/12/21 03:36 ESR 91 MM/HOUR (0-20) H 10/10/21 08:19 Sodium 133 mmol/L (136-145) L 10/12/21 03:36 Corrected Sodium 136 mmol/L (136-145) 10/12/21 03:36 Potassium 4.4 mmol/L (3.5-5.1) 10/12/21 03:36 Chloride 95 mmol/L (98-107) L 10/12/21 03:36 Carbon Dioxide 33.6 mmol/L (21-32) H 10/12/21 03:36 BUN 12 mg/dL (7-18) 10/12/21 03:36 Creatinine 0.77 mg/dL (0.55-1.02) 10/12/21 20:51 Est GFR (MDRD) Af Amer > 60 (>60) 10/12/21 03:36 Est GFR (MDRD) Non-Af > 60 (>60) 10/12/21 03:36 Glucose 242 mg/dL (65-99) H 10/12/21 03:36 POC Glucose (mg/dL) 238 mg/dL (65-99) H 10/12/21 19:53 Hemoglobin A1c 10.5 % 10/10/21 08:19 Lactic Acid 1.2 mmol/L (0.4-2.0) 10/10/21 08:19 Calcium 8.9 mg/dL (8.5-10.1) 10/12/21 03:36 Corrected Calcium 10.3 mg/dL (8.5-10.1) H 10/12/21 03:36 Magnesium 2.3 mg/dL (1.7-2.9) 10/10/21 08:19 Total Bilirubin 0.20 mg/dL (0.2-1.0) 10/12/21 03:36 AST 15 Units/L (15-37) 10/12/21 03:36 ALT 14 Units/L (12-78) 10/12/21 03:36 Alkaline Phosphatase 128 Units/L (46-116) H 10/12/21 03:36 C-Reactive Protein 34.80 mg/L (0-3.0) H 10/12/21 03:36 B-Natriuretic Peptide 118 pg/mL (0-79) H 10/10/21 08:19 Total Protein 6.1 g/dL (6.4-8.2) L 10/12/21 03:36 Albumin 2.3 g/dL (3.4-5.0) L 10/12/21 03:36 Globulin 3.8 g/dL (2.5-4.5) 10/12/21 03:36 Albumin/Globulin Ratio 0.6 Ratio (1.1-2.1) L 10/12/21 03:36 Vancomycin Trough 17.6 ug/mL (15-20) 10/12/21 20:51 SARS-CoV-2 (PCR) Negative (NEGATIVE) 10/10/21 09:30 - Plan (1) Cellulitis of chest wall Status: Acute (2) Hematoma of right chest wall Status: Acute Qualifiers: Encounter type: initial encounter Qualified Code(s): S20.211A - Contusion of right front wall of thorax, initial encounter (3) Diabetes Status: Chronic Qualifiers: Diabetes mellitus type: type 2 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 Diabetes mellitus complication status: with hyperglycemia Qualified Code(s): E11.65 - Type 2 diabetes mellitus with hyperglycemia (4) COPD (chronic obstructive pulmonary disease) Status: Acute Qualifiers: COPD type: unspecified COPD Qualified Code(s): J44.9 - Chronic obstructive pulmonary disease, unspecified (5) CHF (congestive heart failure) Status: Chronic Qualifiers: Qualified Code(s): I50.9 - Heart failure, unspecified (6) Degenerative disc disease Status: Chronic (7) Hyperlipidemia Status: Chronic Qualifiers: Hyperlipidemia type: Mixed hyperlipidemia Qualified Code(s): E78.2 - Mixed hyperlipidemia (8) Hypertension Status: Chronic Qualifiers: Hypertension type: essential hypertension Qualified Code(s): I10 - Essential (primary) hypertension
[2021-10-13] MEDS: PERCOCET TAB 5/325 MG PO PRN ×3 (04:22→21:30)
[2021-10-13 04:26] LABS: BASOPHILS % (AUTO) 0.5 % (0.2-1.0); EOSINOPHILS # (AUTO) 0.1 x10^3/uL (0.0-0.2); EOSINOPHILS % (AUTO) 1.9 % (0.9-2.9); HEMATOCRIT 38.2 % (36.0-47.0); HEMOGLOBIN 12.7 g/dL (12.0-16.0); LYMPHOCYTES # (AUTO) 1.8 X10^3/uL (1.3-2.9); LYMPHOCYTES % (AUTO) 27.2 % (21.0-51.0); MEAN CORPUSCULAR HEMOGLOBIN 29.2 pg (27.0-34.0); MEAN CORPUSCULAR HGB CONC 33.3 g/dL (33.0-35.0); MEAN CORPUSCULAR VOLUME 87.5 fL (80.0-100.0); MEAN PLATELET VOLUME 9.1 fL (7.4-11.0); MONOCYTES # (AUTO) 0.6 x10^3/uL (0.3-0.8); MONOCYTES % (AUTO) 9.6 % (0.0-13.0); NEUTROPHILS % (AUTO) 60.8 % (42.0-75.0); RED BLOOD COUNT 4.36 X10^6/uL (3.5-5.4); WHITE BLOOD COUNT 6.7 X10^3/uL (3.6-10.0)
[2021-10-13 04:31] LABS: ALANINE AMINOTRANSFERASE 22 Units/L (12-78); ALBUMIN 2.7 g/dL (3.4-5.0); ALKALINE PHOSPHATASE 141 Units/L (46-116); ASPARTATE AMINO TRANSFERASE 16 Units/L (15-37); BLOOD UREA NITROGEN 12 mg/dL (7-18); CALCIUM 9.3 mg/dL (8.5-10.1); CHLORIDE 97 mmol/L (98-107); COR CA(FOR HYPOALB) 10.3 mg/dL (8.5-10.1); COR NA(FOR HYPERGLY) 139 mmol/L (136-145); CREATININE 0.72 mg/dL (0.55-1.02); SODIUM 137 mmol/L (136-145); TOTAL PROTEIN 6.8 g/dL (6.4-8.2); eGFR NON BLACK RACES > 60 (>60)
[2021-10-13] MEDS: VANCOMYCIN IV *PREMIX 1 G/200 ML BAG 1 G/200 ML PIGGYBACK IV SCH (05:48)
[2021-10-13] MEDS: NovoLIN R (or HumuLIN R) SC PRN ×3 (06:29→16:17)
[2021-10-13] MEDS: SINEMET (PLAIN) 25/100 MG PO SCH ×3 (06:29→21:04)
[2021-10-13] MEDS: ELIQUIS PO SCH ×2 (08:19→21:01)
[2021-10-13] MEDS: ALDACTONE TAB 25 MG PO SCH (08:19)
[2021-10-13] MEDS: MILK OF MAGNESIA PO SCH ×3 (08:20→21:03)
[2021-10-13] MEDS: LASIX PO SCH ×2 (08:20→16:15)
[2021-10-13] MEDS: PEPCID TAB 40 MG PO SCH ×2 (08:20→21:03)
[2021-10-13] MEDS: PROTONIX INJ 40 MG VIAL IVP SCH ×2 (08:20→21:03)
[2021-10-13] MEDS ORDERED: ZOFRAN INJ 4 MG VIAL ONE (09:15)
[2021-10-13] MEDS: BETAPACE AF PO SCH ×2 (09:25→21:03)
[2021-10-13] MEDS ORDERED: ZOFRAN INJ 4 MG VIAL IVP PRN (09:37)
[2021-10-13] MEDS ORDERED: INVanz INJ 1 GRAM VIAL 1 G in NS 100 ML IV 100 ML IV SCH (10:00)
[2021-10-13] MEDS: LEVAQUIN PREMIX IV 500 MG 500 MG/100 ML BAG IV SCH (13:07)
[2021-10-13] MEDS ORDERED: GLUCOPHAGE ONE (20:16)
[2021-10-13] MEDS: ASPIRIN EC 81 MG PO SCH (21:01)
[2021-10-13] MEDS: GLUCOPHAGE PO SCH (21:01)
[2021-10-13] MEDS: LANTUS SC SCH (21:01)
[2021-10-13] MEDS: CRESTOR TAB 10 MG PO SCH (21:01)
[2021-10-13] MEDS: NEURONTIN CAP 100 MG PO SCH (21:03)
[2021-10-13] MEDS: SNACK - Diabetic Appropriate PO SCH (21:04)
[2021-10-13] MEDS: RESTORIL CAP 15 MG PO PRN (21:48)
[2021-10-14 05:08] LABS: BASOPHILS % (AUTO) 0.4 % (0.2-1.0); EOSINOPHILS # (AUTO) 0.1 x10^3/uL (0.0-0.2); EOSINOPHILS % (AUTO) 1.4 % (0.9-2.9); HEMATOCRIT 35.2 % (36.0-47.0); HEMOGLOBIN 11.6 g/dL (12.0-16.0); LYMPHOCYTES % (AUTO) 29.1 % (21.0-51.0); MEAN CORPUSCULAR HEMOGLOBIN 28.7 pg (27.0-34.0); MEAN CORPUSCULAR VOLUME 86.9 fL (80.0-100.0); MEAN PLATELET VOLUME 8.8 fL (7.4-11.0); MONOCYTES # (AUTO) 0.7 x10^3/uL (0.3-0.8); MONOCYTES % (AUTO) 10.6 % (0.0-13.0); NEUTROPHILS # (AUTO) 4.1 x10^3/uL (2.2-4.8); NEUTROPHILS % (AUTO) 58.5 % (42.0-75.0); RED BLOOD COUNT 4.04 X10^6/uL (3.5-5.4); RED CELL DISTRIBUTION WIDTH 13.9 % (11.6-16.5)
[2021-10-14 05:18] LABS: ALANINE AMINOTRANSFERASE 17 Units/L (12-78); ALBUMIN 2.4 g/dL (3.4-5.0); ALKALINE PHOSPHATASE 120 Units/L (46-116); ASPARTATE AMINO TRANSFERASE 14 Units/L (15-37); BLOOD UREA NITROGEN 11 mg/dL (7-18); CARBON DIOXIDE 41.2 mmol/L (21-32); CHLORIDE 97 mmol/L (98-107); COR CA(FOR HYPOALB) 10.3 mg/dL (8.5-10.1); COR NA(FOR HYPERGLY) 139 mmol/L (136-145); CREATININE 0.76 mg/dL (0.55-1.02); SODIUM 137 mmol/L (136-145); eGFR NON BLACK RACES > 60 (>60)
[2021-10-14] MEDS: SINEMET (PLAIN) 25/100 MG PO SCH (05:52)
[2021-10-14] MEDS: ALDACTONE TAB 25 MG PO SCH (08:02)
[2021-10-14] MEDS: ELIQUIS PO SCH (08:03)
[2021-10-14] MEDS: LASIX PO SCH (08:03)
[2021-10-14] MEDS: LEVAQUIN PREMIX IV 500 MG 500 MG/100 ML BAG IV SCH (08:04)
[2021-10-14] MEDS: PEPCID TAB 40 MG PO SCH (08:04)
[2021-10-14] MEDS: PROTONIX INJ 40 MG VIAL IVP SCH (08:04)
[2021-10-14] MEDS: MILK OF MAGNESIA PO SCH (08:04)
--- NOTE | 2021-10-14 08:37 | PCM.PROG ---
Progress Note - Progress Note for Day of Date of Exam: 10/12/21 - Subjective Subjective: WAS ADMITTED FOR TREATMENT OF RIGHT CHEST WALL CELLULITIS AND HEMATOMA TO PORT SITE. SHE IS DAY 2 STATUS POST PORT REMOVAL BY . TODAY, SHE IS ALERT AND ORIENTED, SITTING UP IN CHAIR ON MORNING ROUNDS. SHE COMPLAINS OF CHEST WALL TENDERNESS AND NAUSEA THIS MORNING. PATIENT HAD ONE EPISODE OF VOMITING THIS MORNING. SHE HAS BEEN AFEBRILE THROUGHOUT THE NIGHT. ON EXAMINATION, HEART IS REGULAR IN RATE AND RHYTHM. BILATERAL LUNGS NOTED WITH DIMINISHED LUNG SOUNDS THROUGHOUT. THERE CONTINUES TO BE ERYTHEMA AND EDEMA TO RIGHT CHEST WALL, BUT HAS IMPROVED SINCE YESTERDAY. ABDOMEN IS ROUND, SOFT, AND NON-TENDER WITH NORMAL BOWEL SOUNDS NOTED IN ALL QUADRANTS. LOWER EXTREMITY EDEMA NOTED, BUT THIS IS NORMAL FOR HER. HER VITALS THIS MORNING ARE: 97.6-67-18-96%-122/57. LABS WERE OBTAINED. WBC 5.8, RBC 4.01, HGB 11.5, HCT 34.7, SODIUM 133, CHLORIDE 95, CARBON DIOXIDE 33.6, BUN 12, CREATININE 0.84, GLUCOSE 242, CALCIUM 8.9, AST 15, ALT 14, ALK PHOS 128, CRP 34.80, TOTAL PROTEIN 6.1, ALBUMIN 2.3. HER BLOOD GLUCOSE LEVELS HAVE BEEN LOWER SINCE STARTING LANTUS. SHE IS CURRENTLY RECEIVING VANCOMYCIN 1G IV Q8H, ZOSYN 3.375G IV TID, DIFLUCAN 200MG IV DAILY, PROTONIX 40MG IV BID, HUMULIN R SLIDING SCALE, LANTUS 10 UNITS SC HS, THE POTASSIUM PROTOCOLS, AND HER HOME MEDICATIONS WERE RESUMED. WE WILL ADD PHENERGAN 25MG IM Q6H PRN FOR NAUSEA. OTHERWISE, WE PLAN TO FOLLOW- UP WITH AM LABS AND CONTINUE TO MONITOR. TIME SPENT ON CLINICAL ASSESSMENT, REVIEWING LABS AND IMAGING, DECISION MAKING, AND DOCUMENTATION GREATER THAN 45 MINUTES. - Past Medical Family Social History Past Med/Fam/Surg Hx: No changes since H&P Allergies: Allergies meperidine [From Demerol] Allergy (Verified 02/19/17 02:07) - Review of Systems ROS: No change since H&P - Vital Signs and I&O's Vital Signs: Temperature 97.9 F Pulse Rate [Left Brachial] 82 Pulse Rate 82 Respiratory Rate 18 Blood Pressure [Right Arm] 155/71 Blood Pressure [Left Arm] 115/55 Blood Pressure 134/74 O2 Sat by Pulse Oximetry 94 Intake and Output: Intake & Output 10/11/21 10/12/21 10/13/21 10/14/21 11:59 11:59 11:59 11:59 Intake Total 2229 / 2229 2436 / 2436 2400 / 2400 2603 / 2603 Balance 2229 / 2229 2436 / 2436 2400 / 2400 2603 / 2603 - Physical Exam Oriented: Normal Eyes: Normal Ear: Normal Nose: Normal Respiratory: Normal Cardiovascular: Edema (BLE) : Normal Auscultation: Bowel Sounds: Normal Palpation: Normal Tenderness: Normal Skin: Other (REDNESS TO CHEST WALL IMPROVING. no necrosis or abscess formation .. ) Musculoskeletal: Normal Psychiatric: Normal Mood Description: Calm Affect: Normal Speech Pattern: Clear, Appropriate - Laboratory and Diagnostics Result Diagrams: 10/14/21 04:34 10/14/21 04:34 Labs: 10/10/21 11:30 Catheter Tip - Other - Final Staphylococcus Epidermidis 10/10/21 11:30 Surgery Wound Gram Stain - Final 10/10/21 11:30 Surgery Wound Culture - Final Staphylococcus Epidermidis 10/10/21 08:23 Blood Blood Culture - Preliminary 10/10/21 08:19 Blood Blood Culture - Preliminary Laboratory WBC 7.0 X10^3/uL (3.6-10.0) 10/14/21 04:34 RBC 4.04 X10^6/uL (3.5-5.4) 10/14/21 04:34 Hgb 11.6 g/dL (12.0-16.0) L 10/14/21 04:34 Hct 35.2 % (36.0-47.0) L 10/14/21 04:34 MCV 86.9 fL (80.0-100.0) 10/14/21 04:34 MCH 28.7 pg (27.0-34.0) 10/14/21 04:34 MCHC 33.0 g/dL (33.0-35.0) 10/14/21 04:34 RDW 13.9 % (11.6-16.5) 10/14/21 04:34 Plt Count 232 X10^3/uL (150.0-450.0) 10/14/21 04:34 MPV 8.8 fL (7.4-11.0) 10/14/21 04:34 Neut % (Auto) 58.5 % (42.0-75.0) 10/14/21 04:34 Lymph % (Auto) 29.1 % (21.0-51.0) 10/14/21 04:34 [place] % (Auto) 10.6 % (0.0-13.0) 10/14/21 04:34 Eos % (Auto) 1.4 % (0.9-2.9) 10/14/21 04:34 Baso % (Auto) 0.4 % (0.2-1.0) 10/14/21 04:34 Neut # (Auto) 4.1 x10^3/uL (2.2-4.8) 10/14/21 04:34 Lymph # (Auto) 2.0 X10^3/uL (1.3-2.9) 10/14/21 04:34 [place] # (Auto) 0.7 x10^3/uL (0.3-0.8) 10/14/21 04:34 Eos # (Auto) 0.1 x10^3/uL (0.0-0.2) 10/14/21 04:34 Baso # (Auto) 0.0 X10^3/uL (0.0-0.1) 10/14/21 04:34 Absolute Nucleated RBC 0.0 /100WBC 10/14/21 04:34 ESR 91 MM/HOUR (0-20) H 10/10/21 08:19 Sodium 137 mmol/L (136-145) 10/14/21 04:34 Corrected Sodium 139 mmol/L (136-145) 10/14/21 04:34 Potassium 4.4 mmol/L (3.5-5.1) 10/14/21 04:34 Chloride 97 mmol/L (98-107) L 10/14/21 04:34 Carbon Dioxide 41.2 mmol/L (21-32) H 10/14/21 04:34 BUN 11 mg/dL (7-18) 10/14/21 04:34 Creatinine 0.76 mg/dL (0.55-1.02) 10/14/21 04:34 Est GFR (MDRD) Af Amer > 60 (>60) 10/14/21 04:34 Est GFR (MDRD) Non-Af > 60 (>60) 10/14/21 04:34 Glucose 166 mg/dL (65-99) H 10/14/21 04:34 POC Glucose (mg/dL) 313 mg/dL (65-99) H 10/13/21 19:54 Hemoglobin A1c 10.5 % 10/10/21 08:19 Lactic Acid 1.2 mmol/L (0.4-2.0) 10/10/21 08:19 Calcium 9.0 mg/dL (8.5-10.1) 10/14/21 04:34 Corrected Calcium 10.3 mg/dL (8.5-10.1) H 10/14/21 04:34 Magnesium 2.3 mg/dL (1.7-2.9) 10/10/21 08:19 Total Bilirubin 0.20 mg/dL (0.2-1.0) 10/14/21 04:34 AST 14 Units/L (15-37) L 10/14/21 04:34 ALT 17 Units/L (12-78) 10/14/21 04:34 Alkaline Phosphatase 120 Units/L (46-116) H 10/14/21 04:34 C-Reactive Protein 27.30 mg/L (0-3.0) H 10/13/21 03:39 B-Natriuretic Peptide 118 pg/mL (0-79) H 10/10/21 08:19 Total Protein 6.0 g/dL (6.4-8.2) L 10/14/21 04:34 Albumin 2.4 g/dL (3.4-5.0) L 10/14/21 04:34 Globulin 3.6 g/dL (2.5-4.5) 10/14/21 04:34 Albumin/Globulin Ratio 0.7 Ratio (1.1-2.1) L 10/14/21 04:34 Vancomycin Trough 17.6 ug/mL (15-20) 10/12/21 20:51 SARS-CoV-2 (PCR) Negative (NEGATIVE) 10/10/21 09:30 - Plan (1) Cellulitis of chest wall Status: Acute Plan: VANCOMYCIN 1G IV Q8H, ZOSYN 3.375G IV TID, DIFLUCAN 200MG IV DAILY, PROTONIX 40MG IV BID, HUMULIN R SLIDING SCALE, LANTUS 10 UNITS SC HS, THE POTASSIUM PROTOCOLS, PHENERGAN 25MG IM Q6H PRN, ZOFRAN 8MG IV PRN, AND HER HOME MEDICATIONS WERE RESUMED (2) Hematoma of right chest wall Status: Acute Qualifiers: Encounter type: initial encounter Qualified Code(s): S20.211A - Contusion of right front wall of thorax, initial encounter (3) Nausea and vomiting Status: Acute Qualifiers: Vomiting type: unspecified Qualified Code(s): R11.2 - Nausea with vomiting, unspecified (4) Diabetes Status: Chronic Qualifiers: Diabetes mellitus type: type 2 Diabetes mellitus penitentiary insulin use: unspecified penitentiary insulin use status Diabetes mellitus complication status: with hyperglycemia Qualified Code(s): E11.65 - Type 2 diabetes mellitus with hyperglycemia Plan: LANTUS 10 UNITS HS, SSI, METFORMIN, OTBS ACHS (5) COPD (chronic obstructive pulmonary disease) Status: Acute Qualifiers: COPD type: unspecified COPD Qualified Code(s): J44.9 - Chronic obstructive pulmonary disease, unspecified (6) CHF (congestive heart failure) Status: Chronic Qualifiers: Qualified Code(s): I50.9 - Heart failure, unspecified (7) Degenerative disc disease Status: Chronic (8) Hyperlipidemia Status: Chronic Qualifiers: Hyperlipidemia type: Mixed hyperlipidemia Qualified Code(s): E78.2 - Mixed hyperlipidemia (9) Hypertension Status: Chronic Qualifiers: Hypertension type: primary hypertension Qualified Code(s): I10 - Essential (primary) hypertension
--- NOTE | 2021-10-14 08:43 | PCM.PROG ---
Progress Note - Progress Note for Day of Date of Exam: 10/13/21 - Subjective Subjective: WAS ADMITTED FOR TREATMENT OF RIGHT CHEST WALL CELLULITIS AND HEMATOMA TO PORT SITE. SHE IS DAY 3 STATUS POST PORT REMOVAL BY . TODAY, SHE IS ALERT AND ORIENTED, SITTING UP IN CHAIR ON MORNING ROUNDS. SHE COMPLAINS OF CHEST WALL TENDERNESS AND NAUSEA THIS MORNING. SHE HAS NOT HAD ANYMORE EPISODES OF VOMITING, ONLY NAUSEA. SHE HAS BEEN AFEBRILE THROUGHOUT THE NIGHT. ON EXAMINATION, HEART IS REGULAR IN RATE AND RHYTHM. BILATERAL LUNGS NOTED WITH DIMINISHED LUNG SOUNDS THROUGHOUT. ERYTHEMA AND EDEMA TO RIGHT CHEST WALL LOOKS MUCH BETTER COMPARED TO ADMISSION. ABDOMEN IS ROUND, SOFT, AND NON- TENDER WITH NORMAL BOWEL SOUNDS NOTED IN ALL QUADRANTS. LOWER EXTREMITY EDEMA NOTED, BUT THIS IS NORMAL FOR HER. HER VITALS THIS MORNING ARE: 97.5-66-18-93%-109/55. LABS WERE OBTAINED. WBC 6.7, RBC 4.36, HGB 12.7, HCT 38.2, SODIUM 137, POTASSIUM 4.4, CHLORIDE 9.7, CARBON DIOXIDE 41.0, BUN 12, CREATININE 0.72, GLUCOSE 178, CALCIUM 9.3, AST 16, ALT 22, ALK PHOS 141, CRP 27.3, TOTAL PROTEIN 6.8, ALBUMIN 2.7. WOUND CULTURE REPORTS GROWTH OF STAPHYLOCOCCUS EPIDERMIDIS. SHE IS CURRENTLY RECEIVING VANCOMYCIN 1G IV Q8H, DIFLUCAN 200MG IV DAILY, PROTONIX 40MG IV BID, HUMULIN R SLIDING SCALE, LANTUS 10 UNITS SC HS, THE POTASSIUM PROTOCOLS, ZOFRAN 8MG IV Q4-6H PRN, PHENERGAN 25MG IM Q6H PRN, AND HER HOME MEDICATIONS WERE RESUMED. WE SUSPECT THAT THE VANCOMYCIN MAY BE CAUSING HER NAUSEA. TODAY, WE WILL DISCONTINUE THE VANCOMYCIN AND ADD LEVAQUIN 500MG IV DAILY. OTHERWISE, WE PLAN TO FOLLOW-UP WITH AM LABS AND CONTINUE TO MONITOR. TIME SPENT ON CLINICAL ASSESSMENT, REVIEWING LABS AND IMAGING, DECISION MAKING, AND DOCUMENTATION GREATER THAN 45 MINUTES. - Past Medical Family Social History Past Med/Fam/Surg Hx: No changes since H&P Allergies: Allergies meperidine [From Demerol] Allergy (Verified 02/19/17 02:07) - Review of Systems ROS: No change since H&P - Vital Signs and I&O's Vital Signs: Temperature 97.9 F Pulse Rate [Left Brachial] 82 Pulse Rate 82 Respiratory Rate 18 Blood Pressure [Right Arm] 155/71 Blood Pressure [Left Arm] 115/55 Blood Pressure 134/74 O2 Sat by Pulse Oximetry 94 Intake and Output: Intake & Output 10/11/21 10/12/21 10/13/21 10/14/21 11:59 11:59 11:59 11:59 Intake Total 2229 / 2229 2436 / 2436 2400 / 2400 2603 / 2603 Balance 2229 / 2229 2436 / 2436 2400 / 2400 2603 / 2603 - Physical Exam Oriented: Normal Eyes: Normal Ear: Normal Nose: Normal Respiratory: Normal Cardiovascular: Edema (BLE) : Normal Auscultation: Bowel Sounds: Normal Palpation: Normal Tenderness: Normal Skin: Other (REDNESS TO CHEST WALL IMPROVING. no necrosis or abscess formation .. ) Musculoskeletal: Normal Psychiatric: Normal Mood Description: Calm Affect: Normal Speech Pattern: Clear, Appropriate - Laboratory and Diagnostics Result Diagrams: 10/14/21 04:34 10/14/21 04:34 Labs: 10/10/21 11:30 Catheter Tip - Other - Final Staphylococcus Epidermidis 10/10/21 11:30 Surgery Wound Gram Stain - Final 10/10/21 11:30 Surgery Wound Culture - Final Staphylococcus Epidermidis 10/10/21 08:23 Blood Blood Culture - Preliminary 10/10/21 08:19 Blood Blood Culture - Preliminary Laboratory WBC 7.0 X10^3/uL (3.6-10.0) 10/14/21 04:34 RBC 4.04 X10^6/uL (3.5-5.4) 10/14/21 04:34 Hgb 11.6 g/dL (12.0-16.0) L 10/14/21 04:34 Hct 35.2 % (36.0-47.0) L 10/14/21 04:34 MCV 86.9 fL (80.0-100.0) 10/14/21 04:34 MCH 28.7 pg (27.0-34.0) 10/14/21 04:34 MCHC 33.0 g/dL (33.0-35.0) 10/14/21 04:34 RDW 13.9 % (11.6-16.5) 10/14/21 04:34 Plt Count 232 X10^3/uL (150.0-450.0) 10/14/21 04:34 MPV 8.8 fL (7.4-11.0) 10/14/21 04:34 Neut % (Auto) 58.5 % (42.0-75.0) 10/14/21 04:34 Lymph % (Auto) 29.1 % (21.0-51.0) 10/14/21 04:34 [place] % (Auto) 10.6 % (0.0-13.0) 10/14/21 04:34 Eos % (Auto) 1.4 % (0.9-2.9) 10/14/21 04:34 Baso % (Auto) 0.4 % (0.2-1.0) 10/14/21 04:34 Neut # (Auto) 4.1 x10^3/uL (2.2-4.8) 10/14/21 04:34 Lymph # (Auto) 2.0 X10^3/uL (1.3-2.9) 10/14/21 04:34 [place] # (Auto) 0.7 x10^3/uL (0.3-0.8) 10/14/21 04:34 Eos # (Auto) 0.1 x10^3/uL (0.0-0.2) 10/14/21 04:34 Baso # (Auto) 0.0 X10^3/uL (0.0-0.1) 10/14/21 04:34 Absolute Nucleated RBC 0.0 /100WBC 10/14/21 04:34 ESR 91 MM/HOUR (0-20) H 10/10/21 08:19 Sodium 137 mmol/L (136-145) 10/14/21 04:34 Corrected Sodium 139 mmol/L (136-145) 10/14/21 04:34 Potassium 4.4 mmol/L (3.5-5.1) 10/14/21 04:34 Chloride 97 mmol/L (98-107) L 10/14/21 04:34 Carbon Dioxide 41.2 mmol/L (21-32) H 10/14/21 04:34 BUN 11 mg/dL (7-18) 10/14/21 04:34 Creatinine 0.76 mg/dL (0.55-1.02) 10/14/21 04:34 Est GFR (MDRD) Af Amer > 60 (>60) 10/14/21 04:34 Est GFR (MDRD) Non-Af > 60 (>60) 10/14/21 04:34 Glucose 166 mg/dL (65-99) H 10/14/21 04:34 POC Glucose (mg/dL) 313 mg/dL (65-99) H 10/13/21 19:54 Hemoglobin A1c 10.5 % 10/10/21 08:19 Lactic Acid 1.2 mmol/L (0.4-2.0) 10/10/21 08:19 Calcium 9.0 mg/dL (8.5-10.1) 10/14/21 04:34 Corrected Calcium 10.3 mg/dL (8.5-10.1) H 10/14/21 04:34 Magnesium 2.3 mg/dL (1.7-2.9) 10/10/21 08:19 Total Bilirubin 0.20 mg/dL (0.2-1.0) 10/14/21 04:34 AST 14 Units/L (15-37) L 10/14/21 04:34 ALT 17 Units/L (12-78) 10/14/21 04:34 Alkaline Phosphatase 120 Units/L (46-116) H 10/14/21 04:34 C-Reactive Protein 27.30 mg/L (0-3.0) H 10/13/21 03:39 B-Natriuretic Peptide 118 pg/mL (0-79) H 10/10/21 08:19 Total Protein 6.0 g/dL (6.4-8.2) L 10/14/21 04:34 Albumin 2.4 g/dL (3.4-5.0) L 10/14/21 04:34 Globulin 3.6 g/dL (2.5-4.5) 10/14/21 04:34 Albumin/Globulin Ratio 0.7 Ratio (1.1-2.1) L 10/14/21 04:34 Vancomycin Trough 17.6 ug/mL (15-20) 10/12/21 20:51 SARS-CoV-2 (PCR) Negative (NEGATIVE) 10/10/21 09:30 - Plan (1) Cellulitis of chest wall Status: Acute Plan: LEVAQUIN 500MG IV DAILY, DIFLUCAN 200MG IV DAILY, PROTONIX 40MG IV BID, HUMULIN R SLIDING SCALE, LANTUS 10 UNITS SC HS, THE POTASSIUM PROTOCOLS, PHENERGAN 25MG IM Q6H PRN, ZOFRAN 8MG IV PRN, AND HER HOME MEDICATIONS WERE R ESUMED (2) Hematoma of right chest wall Status: Acute Qualifiers: Encounter type: initial encounter Qualified Code(s): S20.211A - Contusion of right front wall of thorax, initial encounter (3) Nausea and vomiting Status: Acute Qualifiers: Vomiting type: unspecified Qualified Code(s): R11.2 - Nausea with vomiting, unspecified (4) Diabetes Status: Chronic Qualifiers: Diabetes mellitus type: type 2 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: unspecified halfway insulin use status Diabetes mellitus complication status: with hyperglycemia Qualified Code(s): E11.65 - Type 2 diabetes mellitus with hyperglycemia Plan: LANTUS 10 UNITS HS, SSI, METFORMIN, OTBS ACHS (5) COPD (chronic obstructive pulmonary disease) Status: Acute Qualifiers: COPD type: unspecified COPD Qualified Code(s): J44.9 - Chronic obstructive pulmonary disease, unspecified (6) CHF (congestive heart failure) Status: Chronic Qualifiers: Qualified Code(s): I50.9 - Heart failure, unspecified (7) Degenerative disc disease Status: Chronic (8) Hyperlipidemia Status: Chronic Qualifiers: Hyperlipidemia type: Mixed hyperlipidemia Qualified Code(s): E78.2 - Mixed hyperlipidemia (9) Hypertension Status: Chronic Qualifiers: Hypertension type: primary hypertension Qualified Code(s): I10 - Essential (primary) hypertension
[2021-10-14] MEDS ORDERED: VITAMIN D (1.25MG) PO SCH (09:00)
[2021-10-14] MEDS: BETAPACE AF PO SCH (09:22)
[2021-10-14] MEDS: PERCOCET TAB 5/325 MG PO PRN (09:24)
[2021-10-14 11:35] VITALS: BP 136/60
== END 2021-10-14 13:20 | disposition home health service (06) | DRG 603 ==
LOC: MED/SURG
PROVIDERS: ADMIT Internal Medicine; ATTEND Internal Medicine
DX: I11.0 Hypertensive heart disease with heart failure; E66.01 Morbid (severe) obesity due to excess calories; R07.89 Other chest pain; D68.9 Coagulation defect, unspecified; T36.8X5A Adverse effect of other systemic antibiotics, initial encounter; R11.2 Nausea with vomiting, unspecified; E11.65 Type 2 diabetes mellitus with hyperglycemia; E78.5 Hyperlipidemia, unspecified; Z20.822 Contact with and (suspected) exposure to COVID-19; J44.9 Chronic obstructive pulmonary disease, unspecified; B95.7 Other staphylococcus as the cause of diseases classified elsewhere; L03.313 Cellulitis of chest wall; M25.511 Pain in right shoulder; Y82.8 Other medical devices associated with adverse incidents; I50.9 Heart failure, unspecified; T80.218A Other infection due to central venous catheter, initial encounter; R60.0 Localized edema; M79.81 Nontraumatic hematoma of soft tissue

== ENCOUNTER 2024-06-20 10:26 | Inpatient (IN) ==
--- NOTE | 2024-06-20 10:42 | DR.SOBA ---
HPI Time Seen Time Seen by Provider: 06/20/24 10:40 Complaints Chief Complaint Doctors Comments: Patient complain of nausea vomiting shortness of breath for 5 days. He denies cough or fever. Patient also denies chest pain. PMH PMH Past Medical History: Anxiety, CHF, COPD, Dyslipidemia and Hypertension Past Surgical History: Yes Surgical History: Ortho Surgery Family History Family Medical History: Diabetes Mellitus, [place] and Hypertension Social History Do you use any recreational Drugs:: No ROS Review of Systems Constitutional: Other (shortness of breath) Eyes: No Symptoms Reported ENTM: No Symptoms Reported Respiratoy: Short of Breath Cardiovascular: No Symptoms Reported Gastrointestinal/Abdominal: No Symptoms Reported Genitourinary: No Symptoms Reported Neurological: No Symptoms Reported Musculoskeletal: No Symptoms Reported Integumentary: No Symptoms Reported Hematologic/Lymphatic: No Symptoms Reported Endocrine: No Symptoms Reported Psychiatric: No Symptoms Reported PE Vital Signs Vitals: Vital Signs Pulse Rate 69 Pulse Rate 73 Pulse Rate 59 Pulse Rate 57 Pulse Rate 58 Pulse Rate 62 Pulse Rate 67 Pulse Rate 62 Pulse Rate 58 Pulse Rate 61 Pulse Rate 65 Pulse Rate 61 Pulse Rate 61 Pulse Rate 62 Pulse Rate 61 Pulse Rate 61 Pulse Rate 72 Pulse Rate 60 Pulse Rate 81 Pulse Rate 64 Pulse Rate 71 Pulse Rate 74 Pulse Rate 74 Respiratory Rate 18 Respiratory Rate 35 Respiratory Rate 40 Respiratory Rate 38 Respiratory Rate 39 Respiratory Rate 34 Respiratory Rate 29 Respiratory Rate 19 Respiratory Rate 22 Respiratory Rate 21 Respiratory Rate 28 Respiratory Rate 25 Respiratory Rate 21 Respiratory Rate 29 Respiratory Rate 21 Respiratory Rate 32 Respiratory Rate 25 Respiratory Rate 22 Respiratory Rate 22 Respiratory Rate 27 Respiratory Rate 29 Respiratory Rate 27 O2 Sat by Pulse Oximetry 100 O2 Sat by Pulse Oximetry 97 O2 Sat by Pulse Oximetry 94 O2 Sat by Pulse Oximetry 95 O2 Sat by Pulse Oximetry 95 O2 Sat by Pulse Oximetry 95 O2 Sat by Pulse Oximetry 99 O2 Sat by Pulse Oximetry 99 O2 Sat by Pulse Oximetry 98 O2 Sat by Pulse Oximetry 98 O2 Sat by Pulse Oximetry 90 O2 Sat by Pulse Oximetry 98 O2 Sat by Pulse Oximetry 92 O2 Sat by Pulse Oximetry 99 O2 Sat by Pulse Oximetry 100 O2 Sat by Pulse Oximetry 100 O2 Sat by Pulse Oximetry 100 O2 Sat by Pulse Oximetry 100 O2 Sat by Pulse Oximetry 100 O2 Sat by Pulse Oximetry 100 O2 Sat by Pulse Oximetry 99 O2 Sat by Pulse Oximetry 98 General Limitations: No Limitations General Appearance: In Distress (moderate distress) Head Head Exam: Normal Inspection, Atraumatic and Normocephalic Eyes Eye exam: Normal Appearance, PERRL and EOMI ENT ENT Exam: Normal Exam, Normal Oropharynx and Normal External Ear Exam Neck Neck Exam: Normal Inspection, Full ROM and Trachea Midline Chest Chest Inspection: Normal Inspection Respiratory Respiratory Exam: Other (rhonchi) Respiratory Exam: Bilateral: Rhonchi Cardiovascular Cardiovascular Exam: Regular Rate and Normal Rhythm Abdominal Exam Abdominal Exam: Normal Inspection, Normal Bowel Sounds and Soft Extremities Extremities Exam: Other (Bilateral lower leg lymphedema) Back Back Exam: Normal Inspection and Full ROM Neurologic Neurological Exam: Alert and Oriented X3 Psychiatric Psychiatric Exam: Agitated Skin Skin Exam: Warm, Dry and Intact MDM Differential Diagnosis Differential Diagnosis: CHF, COPD, Respiratory Failure, Respiratory Insufficiency, URI and Other (respiratory acidosis,hypoxia) COURSE Treatment Treatment: Patient presented to the ER with O2 sat of 84. We initially put on 2 L of oxygen and it increased to 99-1. The nurse stated that they increased to 4 L/min and it went up to 96%. This patient does have a trilogy at home for sleep apnea. She is not on home O2. We did do ABG on room air her pH H was 7.34 her pCO2 was 75 her pCO2 was 37 HCO3 was 40.5 O2 sat was 67%. With these numbers we did place the patient on BiPAP. Patient had chest x-ray that was negative for infiltrate. Had a slightly elevated WBC of 12.4 and had an elevated blood sugar of 283. This patient had a troponin of 58 BNP was 252. Spoke initially Dr. Morales at 1640 and he stated the patient would also need to get a D-dimer and a CTA of the chest since the proxy a could not be ascertained as to where it was coming from. We did do a CTA of the chest and he just showed the patient had some decompensated CHF with bilateral pleural effusions. Patient also had a D-dimer of 4.3. Spoke back to Dr. Morales at 1827 he stated to admit the patient and continue to diuresis could continue the BiPAP and admit. The patient was discussed with case management and they said the patient could be referred or admitted as an acute care admission. This patient was given 40 mg of Lasix in the emergency department. [facility] Labs Reviewed Laboratory Results Reviewed?: Yes 06/20/24 10:45 06/20/24 10:45 Laboratory: WBC 12.4 X10^3/uL (3.6-10.0) H 06/20/24 10:45 RBC 5.46 X10^6/uL (3.5-5.4) H 06/20/24 10:45 Hgb 12.8 g/dL (12.0-16.0) 06/20/24 10:45 Hct 42.0 % (36.0-47.0) 06/20/24 10:45 MCV 76.8 fL (80.0-100.0) L 06/20/24 10:45 MCH 23.5 pg (27.0-34.0) L 06/20/24 10:45 MCHC 30.5 g/dL (33.0-35.0) L 06/20/24 10:45 RDW 18.1 % (11.6-16.5) H 06/20/24 10:45 Plt Count 203 X10^3/uL (150.0-450.0) 06/20/24 10:45 Plt Count Comment Adequate (ADEQUATE) 06/20/24 10:45 MPV 9.6 fL (7.4-11.0) 06/20/24 10:45 Neut % (Auto) 76.3 % (42.0-75.0) H 06/20/24 10:45 Lymph % (Auto) 14.4 % (21.0-51.0) L 06/20/24 10:45 [place] % (Auto) 8.7 % (0.0-13.0) 06/20/24 10:45 Eos % (Auto) 0.2 % (0.9-2.9) L 06/20/24 10:45 Baso % (Auto) 0.4 % (0.2-1.0) 06/20/24 10:45 Neut # (Auto) 9.4 x10^3/uL (2.2-4.8) H 06/20/24 10:45 Lymph # (Auto) 1.8 X10^3/uL (1.3-2.9) 06/20/24 10:45 [place] # (Auto) 1.1 x10^3/uL (0.3-0.8) H 06/20/24 10:45 Eos # (Auto) 0.0 x10^3/uL (0.0-0.2) 06/20/24 10:45 Baso # (Auto) 0.1 X10^3/uL (0.0-0.1) 06/20/24 10:45 Absolute Nucleated RBC 0.5 /100WBC 06/20/24 10:45 Total Counted 100 06/20/24 10:45 Neutrophils % (Manual) 77 % (39-76) H 06/20/24 10:45 Band Neutrophils % 3 % (0-10) 06/20/24 10:45 Lymphocytes % (Manual) 14 % (13-43) 06/20/24 10:45 Monocytes % (Manual) 6 % (4-9) 06/20/24 10:45 Plt Morphology Comment Normal (NORMAL) 06/20/24 10:45 RBC Morphology Abnormal (NORMAL) A 06/20/24 10:45 Hypochromasia 1+ A 06/20/24 10:45 Anisocytosis Slight A 06/20/24 10:45 Microcytosis Slight A 06/20/24 10:45 Stomatocytes Slight A 06/20/24 10:45 D-Dimer 4.31 ug/ml (0.0-0.57) H 06/20/24 10:45 Sample Site Rbra 06/20/24 14:18 ABG pH 7.340 (7.35-7.45) L 06/20/24 14:18 ABG pCO2 75.0 mmHg (35.0-45.0) H* 06/20/24 14:18 ABG pO2 37.0 mmHg (80.0-100.0) L* 06/20/24 14:18 ABG HCO3 40.5 mmol/L (22-26) H* 06/20/24 14:18 ABG O2 Saturation 67.0 % (90-100) L* 06/20/24 14:18 ABG Base Excess 11.7 mmol/L (-2.0-2.0) H 06/20/24 14:18 Jose Angel Test N/a 06/20/24 14:18 A-a Gradient 19.0 mmHg 06/20/24 14:18 FiO2 21.0 06/20/24 14:18 Blood Gas Comments 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 elj cdn 06/20/24 14:18 Sodium 136 mmol/L (136-145) 06/20/24 10:45 Corrected Sodium 140 mmol/L (136-145) 06/20/24 10:45 Potassium 3.9 mmol/L (3.5-5.1) 06/20/24 10:45 Chloride 95 mmol/L (98-107) L 06/20/24 10:45 Carbon Dioxide 38.4 mmol/L (21-32) H 06/20/24 10:45 BUN 17 mg/dL (7-18) 06/20/24 10:45 Creatinine 1.04 mg/dL (0.55-1.02) H 06/20/24 10:45 Est GFR (MDRD) Af Amer > 60 (>60) 06/20/24 10:45 Est GFR (MDRD) Non-Af 55 (>60) L 06/20/24 10:45 Glucose 283 mg/dL (65-99) H 06/20/24 10:45 Calcium 8.6 mg/dL (8.5-10.1) 06/20/24 10:45 Corrected Calcium TNP 06/20/24 10:45 Total Bilirubin 0.70 mg/dL (0.2-1.0) 06/20/24 10:45 AST 108 Units/L (15-37) H 06/20/24 10:45 ALT 175 Units/L (12-78) H 06/20/24 10:45 Alkaline Phosphatase 103 Units/L (46-116) 06/20/24 10:45 Troponin I High Sens 58.0 ng/L (4.0-60.0) 06/20/24 10:45 B-Natriuretic Peptide 252 pg/mL (0-79) H 06/20/24 10:45 Total Protein 7.5 g/dL (6.4-8.2) 06/20/24 10:45 Albumin 3.4 g/dL (3.4-5.0) 06/20/24 10:45 Globulin 4.1 g/dL (2.5-4.5) 06/20/24 10:45 Albumin/Globulin Ratio 0.8 Ratio (1.1-2.1) L 06/20/24 10:45 Specimen Type Clean catch urine 06/20/24 12:03 Urine Color Pale yellow (YELLOW) 06/20/24 12:03 Urine Appearance Clear (CLEAR) 06/20/24 12:03 Urine pH 6.0 (5.0 - 8.0) 06/20/24 12:03 Ur Specific [place] 1.020 (1.000-1.030) 06/20/24 12:03 Urine Protein 3+ (NEGATIVE) 06/20/24 12:03 Urine Glucose (UA) 4+ (NEGATIVE) 06/20/24 12:03 Urine Ketones Negative (NEGATIVE) 06/20/24 12:03 Urine Blood Negative (NEGATIVE) 06/20/24 12:03 Urine Nitrite Negative (NEGATIVE) 06/20/24 12:03 Urine Bilirubin Negative (NEGATIVE) 06/20/24 12:03 Urine Urobilinogen 1+ (NORMAL) 06/20/24 12:03 Ur Leukocyte Esterase Negative (NEGATIVE) 06/20/24 12:03 Urine RBC 3-5 /HPF (0-3) A 06/20/24 12:03 Urine WBC 3-5 /HPF (0-5) 06/20/24 12:03 Ur Squamous Epith Cells Rare /HPF (NEGATIVE) 06/20/24 12:03 Urine Bacteria 4+ /HPF (NEGATIVE) 06/20/24 12:03 Hyaline Casts Rare /LPF (NEGATIVE) 06/20/24 12:03 Urine Mucus Rare /HPF (NEGATIVE) 06/20/24 12:03 Ur Culture Indicated? Yes/culture set up 06/20/24 12:03 SARS-CoV-2 (PCR) Negative (NEGATIVE) 06/20/24 10:38 Influenza Type A (PCR) Negative (NEGATIVE) 06/20/24 10:38 Influenza Type B (PCR) Negative (NEGATIVE) 06/20/24 10:38 RSV (PCR) Negative (NEGATIVE) 06/20/24 10:38 Opioid Opioid Risk Tool Age (Florin box if 16-45): No History of Preadolescent Sexual Abuse: No Total: 0 Total Score Risk Category: Low Risk Copyright: Juan R FLOYD predicting aberrant behaviors Discharge Plan Diagnosis Discharge Problem: Decompensated heart failure, Hypoxia, Hypercarbia Discharge Plan Patient Disposition: 09 ADMITTED INPATIENT Condition: Stable Prescriptions: No Action furosemide [Lasix] 40 mg Tablet 40 mg PO BID potassium chloride 10 mEq Capsule, Extended Release 20 meq PO BID sotalol 80 mg Tablet 80 mg PO Q12H aspirin [Aspir-81] 81 mg Tablet,Delayed Release (Dr/Ec) 81 mg PO HS pantoprazole 40 mg Tablet,Delayed Release (Dr/Ec) 40 mg PO BID carbidopa-levodopa [Sinemet] 25-100 mg Tablet 1 tab PO BID rosuvastatin 20 mg Tablet 20 mg PO HS Eliquis 5 mg Tablet 5 mg PO BID spironolactone 25 mg Tablet 25 mg PO QDAY ondansetron 8 mg Tablet,Disintegrating 8 mg PO Q4-6H PRN ketorolac 60 mg/2 mL Syringe 60 mg IM BID PRN metformin 500 mg Tablet 500 mg PO BID Qty: 60 3RF Rx Instructions: take one tablet twice a day insulin glargine [Lantus U-100 Insulin] 100 unit/mL Solution 10 units SC QPM Qty: 3 0RF Rx Instructions: take 10 units subcutaneously at bedtime Humulin R Regular U-100 Insuln 100 unit/mL Solution 1 sliding scale dose SUBCUT USEASDIRECTD Qty: 10 0RF Rx Instructions: humulin r sliding scale. monitor blood glucose levels before meals levofloxacin 500 mg Tablet 500 mg PO DAILY Qty: 10 0RF Rx Instructions: TAKE ONE TABLET DAILY FOR 10 DAYS fluconazole [Diflucan] 100 mg Tablet 100 mg PO DAILY Qty: 10 0RF Rx Instructions: TAKE ONE TABLET DAILY FOR 10 DAYS oxycodone-acetaminophen 10-325 mg Tablet 1 tab PO Q6H MDD 4 PRNQty: 120 0RF Rx Instructions: take one tablet every 6 hours as needed for pain (DME) blood-glucose meter Kit Qty: 1 0RF Rx Instructions: As Directed gabapentin 100 mg Capsule 100 mg PO HS ergocalciferol (vitamin D2) [Drisdol] 1,250 mcg (50,000 unit) Capsule 50,000 unit PO WEEKLY Health Concerns: Post Hospitalization: new medications and changes needed to prevent readmission or further decline. Pt educated and given instructions on all concerns. Plan of Treatment: Continue with present treatment and follow up plan. Pt is to keep follow up appointment as instructed and take medications as ordered. Orders to Discharge Patient Discharge Orders: Transfer (Routine); Ordered 06/20/24 Ordered By: Vasu Albarado Instructions Stand Alone Forms: Find Help Web Site, Post Hospital Follow Up Care
[2024-06-20 10:47] VITALS: BMI 56.0
[2024-06-20 11:01] LABS: BASOPHILS # (AUTO) 0.1 X10^3/uL (0.0-0.1); MEAN CORPUSCULAR HEMOGLOBIN 23.5 pg (27.0-34.0); MONOCYTES # (AUTO) 1.1 x10^3/uL (0.3-0.8); RED CELL DISTRIBUTION WIDTH 18.1 % (11.6-16.5)
[2024-06-20] MEDS: ZOFRAN INJ 4 MG VIAL IVP ONE ×2 (11:03→11:35)
[2024-06-20 11:13] LABS: ALANINE AMINOTRANSFERASE 175 Units/L (12-78); ALBUMIN 3.4 g/dL (3.4-5.0); ALKALINE PHOSPHATASE 103 Units/L (46-116); ASPARTATE AMINO TRANSFERASE 108 Units/L (15-37); BASOPHILS % (AUTO) 0.4 % (0.2-1.0); BLOOD UREA NITROGEN 17 mg/dL (7-18); CALCIUM 8.6 mg/dL (8.5-10.1); CARBON DIOXIDE 38.4 mmol/L (21-32); CHLORIDE 95 mmol/L (98-107); COR NA(FOR HYPERGLY) 140 mmol/L (136-145); CREATININE 1.04 mg/dL (0.55-1.02); EOSINOPHILS % (AUTO) 0.2 % (0.9-2.9); GLUCOSE 283 mg/dL (65-99); HEMOGLOBIN 12.8 g/dL (12.0-16.0); LYMPHOCYTES # (AUTO) 1.8 X10^3/uL (1.3-2.9); LYMPHOCYTES % (AUTO) 14.4 % (21.0-51.0); MEAN CORPUSCULAR HGB CONC 30.5 g/dL (33.0-35.0); MEAN CORPUSCULAR VOLUME 76.8 fL (80.0-100.0); MEAN PLATELET VOLUME 9.6 fL (7.4-11.0); MONOCYTES % (AUTO) 8.7 % (0.0-13.0); NEUTROPHILS # (AUTO) 9.4 x10^3/uL (2.2-4.8); NEUTROPHILS % (AUTO) 76.3 % (42.0-75.0); PLATELET COUNT 203 X10^3/uL (150.0-450.0); POTASSIUM 3.9 mmol/L (3.5-5.1); RED BLOOD COUNT 5.46 X10^6/uL (3.5-5.4); SODIUM 136 mmol/L (136-145); TOTAL PROTEIN 7.5 g/dL (6.4-8.2); WHITE BLOOD COUNT 12.4 X10^3/uL (3.6-10.0); eGFR NON BLACK RACES 55 (>60)
--- NOTE | 2024-06-20 11:15 | RAD ---
EXAM: CHEST, 1 VIEW HISTORY: sob; COMPARISON: 60 1322 FINDINGS: The cardiomediastinal silhouette is stable. Chronic appearing interstitial changes in the lungs. No acute airspace disease. No pneumothorax or ef fusion. No acute osseous abnormality. IMPRESSION: No acute cardiopulmonary disease. THIS IS AN ELECTRONICALLY VERIFIED FINAL REPORT 06/20/2024 11:11 AM - Electronically signed by Juan Mills MD
[2024-06-20 11:31] LABS: BAND NEUTROPHILS % 3 % (0-10)
[2024-06-20 11:33] LABS: ANISOCYTOSIS SLIGHT; HYPOCHROMASIA 1+; MICROCYTOSIS SLIGHT; PLATELET MORPHOLOGY COMMENT NORMAL (NORMAL); STOMATOCYTES SLIGHT
[2024-06-20 12:20] LABS: BILIRUBIN,URINE NEGATIVE (NEGATIVE); BLOOD/HEMOGLOBIN,URINE NEGATIVE (NEGATIVE); GLUCOSE, URINE 4+ (NEGATIVE); KETONES,URINE NEGATIVE (NEGATIVE); LEUKOCYTE ESTERASE ,URINE NEGATIVE (NEGATIVE); NITRITES,URINE NEGATIVE (NEGATIVE); PROTEIN,URINE 3+ (NEGATIVE); UROBILINOGEN,URINE 1+ (NORMAL)
[2024-06-20 12:21] LABS: APPEARANCE,URINE CLEAR (CLEAR); COLOR,URINE PALE YELLOW (YELLOW)
[2024-06-20 12:27] LABS: BACTERIA,URINE 4+ /HPF (NEGATIVE); HYALINE CASTS, URINE RARE /LPF (NEGATIVE); SQUAMOUS EPITHELIAL CELL,UR RARE /HPF (NEGATIVE)
[2024-06-20 14:26] LABS: ABG BASE EXCESS 11.7 mmol/L (-2.0-2.0)
--- NOTE | 2024-06-20 14:26 | EKG ---
Test Reason : Shortness of breath Blood Pressure : */* mmHG Vent. Rate : 64 BPM Atrial Rate : 64 BPM P-R Int : 136 ms QRS Dur : 74 ms QT Int : 488 ms P-R-T Axes : 76 -18 32 degrees QTc Int : 503 ms Normal sinus rhythm Low voltage QRS Inferior infarct , age undetermined Possible Anterolateral infarct , age undetermined Abnormal ECG No previous ECGs available Confirmed by Maxime Allen MD ([id number]) on 06/21/2024 7:05:20 AM Referred By: Confirmed By: Maxime Allen MD
[2024-06-20 14:27] LABS: ABG HCO3 40.5 mmol/L (22-26)
--- NOTE | 2024-06-20 17:59 | CT ---
EXAM:CTA chest with intravenous contrastHISTORY:Shortness of breath, HYPOXIA;COMPARISON:CTA chest November 28, 2020 and frontal chest radiograph same day 10:50 a.m.TECHNIQUE:CT angiography of the chest with intravenous contrast. Three-dimensional reconstructions and/or MIPS images were produced and reviewed.FINDINGS:The bolus timing is adequate. Negative for pulmonary embolus. The thoracic aorta tapers normally. The heart is enlarged. There are small bilateral layering pleural effusions. Limited visualization of the upper abdomen demonstrates a lap band in satisfactory position. No acute upper abdominal process.Lung windows demonstrate interseptal edema. Bilateral ground-glass airspace opacities are present consistent with airspace edema. Advanced degenerative changes of the spine with changes suggestive of DISH.IMPRESSION:Negative for pulmonary embolus. Findings are consistent with decompensated congestive heart failure.All CT scans at this facility use dose modulation, iterative reconstruction, and/or weight based dosing when appropriate to reduce radiation dose to as low as reasonably achievable.THIS IS AN ELECTRONICALLY VERIFIED FINAL REPORT06/20/2024 5:56 PM - Electronically signed by Philip Ann MD
[2024-06-20] MEDS: LASIX IVP ONE (18:14)
[2024-06-20 19:45] LABS: ABG BASE EXCESS 12.4 mmol/L (-2.0-2.0)
[2024-06-20 19:48] LABS: ABG ALLEN TEST POS; ABG HCO3 42.8 mmol/L (22-26)
[2024-06-20 23:02] LABS: ABG BASE EXCESS 13.6 mmol/L (-2.0-2.0)
[2024-06-20 23:05] LABS: ABG ALLEN TEST POS; ABG HCO3 43.8 mmol/L (22-26)
[2024-06-21 06:08] LABS: ABG BASE EXCESS 14.8 mmol/L (-2.0-2.0)
[2024-06-21 06:10] LABS: ABG ALLEN TEST POS; ABG HCO3 43.2 mmol/L (22-26)
[2024-06-21 07:16] LABS: BASOPHILS % (AUTO) 0.5 % (0.2-1.0); EOSINOPHILS % (AUTO) 0.4 % (0.9-2.9); HEMATOCRIT 40.3 % (36.0-47.0); HEMOGLOBIN 12.4 g/dL (12.0-16.0); LYMPHOCYTES # (AUTO) 1.5 X10^3/uL (1.3-2.9); MEAN CORPUSCULAR HGB CONC 30.8 g/dL (33.0-35.0); MEAN CORPUSCULAR VOLUME 77.7 fL (80.0-100.0); MEAN PLATELET VOLUME 9.7 fL (7.4-11.0); MONOCYTES # (AUTO) 0.9 x10^3/uL (0.3-0.8); MONOCYTES % (AUTO) 9.6 % (0.0-13.0); NEUTROPHILS # (AUTO) 6.7 x10^3/uL (2.2-4.8); NEUTROPHILS % (AUTO) 73.5 % (42.0-75.0); PLATELET COUNT 186 X10^3/uL (150.0-450.0); RED BLOOD COUNT 5.18 X10^6/uL (3.5-5.4); RED CELL DISTRIBUTION WIDTH 17.5 % (11.6-16.5); WHITE BLOOD COUNT 9.1 X10^3/uL (3.6-10.0)
[2024-06-21 07:34] LABS: ALANINE AMINOTRANSFERASE 144 Units/L (12-78); ALBUMIN 3.4 g/dL (3.4-5.0); ALKALINE PHOSPHATASE 106 Units/L (46-116); ASPARTATE AMINO TRANSFERASE 61 Units/L (15-37); BLOOD UREA NITROGEN 15 mg/dL (7-18); CALCIUM 8.8 mg/dL (8.5-10.1); CHLORIDE 96 mmol/L (98-107); COR NA(FOR HYPERGLY) 143 mmol/L (136-145); CREATININE 0.78 mg/dL (0.55-1.02); GLUCOSE 190 mg/dL (65-99); POTASSIUM 3.2 mmol/L (3.5-5.1); SODIUM 141 mmol/L (136-145); TOTAL PROTEIN 7.4 g/dL (6.4-8.2); eGFR NON BLACK RACES > 60 (>60)
[2024-06-21] MEDS: NS 100 ML IV 100 ML ONE (08:06)
[2024-06-21] MEDS: OMNIPAQUE 350 mg/mL 100 mL BTL 100 ML ONE (08:06)
[2024-06-21] MEDS: LASIX IVP ONE ×2 (08:07→09:17)
[2024-06-21] MEDS: LASIX IVP SCH (08:49)
[2024-06-21 09:55] LABS: BILIRUBIN,URINE NEGATIVE (NEGATIVE); BLOOD/HEMOGLOBIN,URINE NEGATIVE (NEGATIVE); GLUCOSE, URINE 4+ (NEGATIVE); KETONES,URINE NEGATIVE (NEGATIVE); LEUKOCYTE ESTERASE ,URINE NEGATIVE (NEGATIVE); NITRITES,URINE POSITIVE (NEGATIVE); PROTEIN,URINE 1+ (NEGATIVE); UROBILINOGEN,URINE NORMAL (NORMAL)
[2024-06-21 09:56] LABS: APPEARANCE,URINE CLEAR (CLEAR); COLOR,URINE PALE YELLOW (YELLOW)
[2024-06-21 10:03] LABS: BACTERIA,URINE 2+ /HPF (NEGATIVE); SQUAMOUS EPITHELIAL CELL,UR FEW /HPF (NEGATIVE)
[2024-06-21] MEDS ORDERED: PERCOCET TAB 5/325 MG PO PRN (12:14)
[2024-06-21] MEDS ORDERED: NovoLIN R (or HumuLIN R) SUBCUT SCH (13:00)
[2024-06-21] MEDS: LEVAQUIN TAB 500 MG PO SCH (13:33)
[2024-06-21] MEDS: PROTONIX TAB 40 MG PO SCH (13:33)
[2024-06-21] MEDS: BETAPACE AF PO SCH ×2 (13:33→21:09)
[2024-06-21] MEDS: ELIQUIS PO SCH (13:33)
[2024-06-21] MEDS: ALDACTONE TAB 25 MG PO SCH (13:33)
[2024-06-21 14:25] LABS: ABG BASE EXCESS 19.1 mmol/L (-2.0-2.0)
[2024-06-21 17:05] LABS: ABG BASE EXCESS 22.6 mmol/L (-2.0-2.0)
[2024-06-21 17:06] LABS: ABG HCO3 52.6 mmol/L (22-26)
[2024-06-21] MEDS: GLUCOPHAGE PO SCH (17:31)
[2024-06-21] MEDS: GLUCOPHAGE ONE (18:01)
[2024-06-21] MEDS: KLOR-CON 10 MEQ TAB PO SCH (21:10)
[2024-06-21] MEDS: NEURONTIN CAP 100 MG PO SCH (21:10)
[2024-06-21] MEDS: SINEMET (PLAIN) 25/100 MG PO SCH (21:10)
[2024-06-21] MEDS: ASPIRIN EC 81 MG PO SCH (21:10)
[2024-06-21] MEDS: CRESTOR TAB 10 MG PO SCH (21:11)
[2024-06-21] MEDS: SNACK - Diabetic Appropriate PO SCH (21:17)
[2024-06-21] MEDS: NovoLIN R (or HumuLIN R) SUBCUT PRN (21:48)
[2024-06-21] MEDS: LANTUS SC SCH (21:50)
[2024-06-21] MEDS: REQUIP PO SCH (22:01)
[2024-06-22] MEDS ORDERED: MILK OF MAGNESIA PO PRN (01:38)
[2024-06-22] MEDS: MAALOX or MYLANTA PO PRN (01:55)
[2024-06-22 05:38] LABS: ABG BASE EXCESS 23.1 mmol/L (-2.0-2.0)
[2024-06-22 05:40] LABS: ABG ALLEN TEST POS; ABG HCO3 52.7 mmol/L (22-26)
[2024-06-22 05:52] LABS: BASOPHILS % (AUTO) 0.3 % (0.2-1.0); EOSINOPHILS # (AUTO) 0.1 x10^3/uL (0.0-0.2); EOSINOPHILS % (AUTO) 0.8 % (0.9-2.9); HEMATOCRIT 36.5 % (36.0-47.0); HEMOGLOBIN 11.3 g/dL (12.0-16.0); LYMPHOCYTES # (AUTO) 1.2 X10^3/uL (1.3-2.9); LYMPHOCYTES % (AUTO) 18.2 % (21.0-51.0); MEAN CORPUSCULAR HEMOGLOBIN 23.9 pg (27.0-34.0); MEAN CORPUSCULAR HGB CONC 30.8 g/dL (33.0-35.0); MEAN CORPUSCULAR VOLUME 77.4 fL (80.0-100.0); MEAN PLATELET VOLUME 9.2 fL (7.4-11.0); MONOCYTES # (AUTO) 0.8 x10^3/uL (0.3-0.8); MONOCYTES % (AUTO) 11.8 % (0.0-13.0); NEUTROPHILS # (AUTO) 4.5 x10^3/uL (2.2-4.8); NEUTROPHILS % (AUTO) 68.9 % (42.0-75.0); PLATELET COUNT 153 X10^3/uL (150.0-450.0); RED BLOOD COUNT 4.71 X10^6/uL (3.5-5.4); RED CELL DISTRIBUTION WIDTH 17.4 % (11.6-16.5); WHITE BLOOD COUNT 6.6 X10^3/uL (3.6-10.0)
[2024-06-22 06:05] LABS: ALANINE AMINOTRANSFERASE 92 Units/L (12-78); ALBUMIN 2.7 g/dL (3.4-5.0); ALKALINE PHOSPHATASE 88 Units/L (46-116); ASPARTATE AMINO TRANSFERASE 31 Units/L (15-37); BLOOD UREA NITROGEN 10 mg/dL (7-18); CALCIUM 8.4 mg/dL (8.5-10.1); CHLORIDE 97 mmol/L (98-107); COR CA(FOR HYPOALB) 9.4 mg/dL (8.5-10.1); COR NA(FOR HYPERGLY) 143 mmol/L (136-145); CREATININE 0.61 mg/dL (0.55-1.02); GLUCOSE 139 mg/dL (65-99); MAGNESIUM 1.5 mg/dL (2.0-2.9); POTASSIUM 3.2 mmol/L (3.5-5.1); SODIUM 142 mmol/L (136-145); TOTAL PROTEIN 6.1 g/dL (6.4-8.2); eGFR NON BLACK RACES > 60 (>60)
[2024-06-22 06:22] LABS: CARBON DIOXIDE > 45.0 mmol/L (21-32)
[2024-06-22] MEDS ORDERED: CONSULT PHARMACY - POTASSIUM & MAGNESIUM XX SCH ×2 (07:00→09:00)
[2024-06-22] MEDS: GLUCOPHAGE ONE ×2 (07:54→16:49)
--- NOTE | 2024-06-22 09:04 | RAD ---
EXAM:CHEST, 1 VIEWHISTORY:CHF, HYPERCAPNIA;COMPARISON:06/20/2024FINDINGS: r.br.br disease. No pneumothorax or effusion.No acute osseous abnormality.IMPRESSION:No acute cardiopulmonary disease.THIS IS AN ELECTRONICALLY VERIFIED FINAL REPORT06/22/2024 9:00 AM - Electronically signed by Juan Mills MD
[2024-06-22] MEDS: MAG-OX TAB PO SCH (10:47)
[2024-06-22] MEDS: K-DUR TAB 20 MEQ PO SCH (10:47)
[2024-06-22] MEDS: NS 100 ML IV 100 ML with VENOFER 400 MG IV ONE (10:48)
[2024-06-22] MEDS: PEPCID TAB 40 MG PO PRN (11:48)
[2024-06-22] MEDS: LASIX IVP SCH (16:49)
[2024-06-22] MEDS: TYLENOL 500 MG TAB EXTRA STRENGTH PO ONE (21:48)
[2024-06-23] MEDS ORDERED: GLUCOPHAGE ONE ×2 (03:08→17:50)
[2024-06-23 05:12] LABS: ABG BASE EXCESS 24.8 mmol/L (-2.0-2.0)
[2024-06-23 05:13] LABS: ABG ALLEN TEST POS; ABG HCO3 51.3 mmol/L (22-26)
[2024-06-23 06:07] LABS: BASOPHILS % (AUTO) 0.6 % (0.2-1.0); EOSINOPHILS # (AUTO) 0.1 x10^3/uL (0.0-0.2); HEMATOCRIT 38.9 % (36.0-47.0); HEMOGLOBIN 12.1 g/dL (12.0-16.0); LYMPHOCYTES # (AUTO) 1.5 X10^3/uL (1.3-2.9); LYMPHOCYTES % (AUTO) 20.8 % (21.0-51.0); MEAN CORPUSCULAR HEMOGLOBIN 23.7 pg (27.0-34.0); MEAN CORPUSCULAR HGB CONC 31.1 g/dL (33.0-35.0); MEAN CORPUSCULAR VOLUME 76.2 fL (80.0-100.0); MEAN PLATELET VOLUME 9.4 fL (7.4-11.0); MONOCYTES # (AUTO) 0.8 x10^3/uL (0.3-0.8); MONOCYTES % (AUTO) 10.7 % (0.0-13.0); NEUTROPHILS # (AUTO) 4.7 x10^3/uL (2.2-4.8); NEUTROPHILS % (AUTO) 66.9 % (42.0-75.0); PLATELET COUNT 182 X10^3/uL (150.0-450.0); RED CELL DISTRIBUTION WIDTH 17.3 % (11.6-16.5); WHITE BLOOD COUNT 7.1 X10^3/uL (3.6-10.0)
[2024-06-23 06:44] LABS: ALANINE AMINOTRANSFERASE 74 Units/L (12-78); ALBUMIN 3.2 g/dL (3.4-5.0); ALKALINE PHOSPHATASE 101 Units/L (46-116); ASPARTATE AMINO TRANSFERASE 27 Units/L (15-37); BLOOD UREA NITROGEN 11 mg/dL (7-18); CALCIUM 9.3 mg/dL (8.5-10.1); CHLORIDE 96 mmol/L (98-107); COR CA(FOR HYPOALB) 9.9 mg/dL (8.5-10.1); COR NA(FOR HYPERGLY) 141 mmol/L (136-145); CREATININE 0.73 mg/dL (0.55-1.02); GLUCOSE 144 mg/dL (65-99); MAGNESIUM 1.9 mg/dL (2.0-2.9); POTASSIUM 3.8 mmol/L (3.5-5.1); SODIUM 140 mmol/L (136-145); eGFR NON BLACK RACES > 60 (>60)
[2024-06-23 06:49] LABS: CARBON DIOXIDE > 45.0 mmol/L (21-32)
--- NOTE | 2024-06-23 08:19 | RAD ---
EXAMINATION: CHEST, 1 VIEW HISTORY: respiratory failure; . COMPARISON STUDY: Chest x-ray 06/22/2019 TECHNIQUE: Single frontal view of the chest FINDINGS: Lungs are expanded. Equivocal alveolar infiltrate left pulmonary base. Mild cardiac silhouette enla rgement. Normal pulmonary vascular pattern. Bones are intact. IMPRESSION: Equivocal infiltrate left pulmonary base. Mild cardiac silhouette enlargement THIS IS AN ELECTRONICALLY VERIFIED FINAL REPORT 06/23/2024 8:15 AM - Electronically signed by Evelia Andino MD
[2024-06-23] MEDS: LASIX IVP SCH (09:08)
--- NOTE | 2024-06-23 10:43 | PCM.PROG ---
Progress Note Progress Note for Day of Date of Exam: 06/23/24 Subjective Subjective: Patient seen at bedside, no acute events overnight. She is feeling better today, remains on 4L NC. She did use her home BiPAP machine last night. Her leg edema continues to improve. She is admitted for CHF exacerbation and acute on chronic respiratory failure with hypoxia and hypercapnia. She also has pneumonia and UTI. ABG today showed CO2 60. She remains on IV lasix, antibiotics and nebs. Labs/imaging reviewed: -WBC 7.1 Hgb 12.1 K 3.8 BUN/Cr 11/0.73 -ABG 7.54/60/79/51.3 -Urine Cx: enterobacter -CXR: left base opacity -CTA (-) PE Plan: Wean O2 as tolerated, BiPAP qhS. Monitor I&Os, daily weight. Will decrease lasix to 40 mg IV BID. Echo pending. Continue levaquin. Follow pending cultures. Add Diflucan. Resume pepcid. Continue home medications. Replace electrolytes p rn. PT/OT as tolerated. Monitor AM labs/imaging. Time spent for clinical assessment, reviewing labs/imaging, physical exam, decision making and documentation greater than 45 mins. Past Medical Family Social History Allergies: Allergies meperidine [From Demerol] Allergy (Verified 02/19/17 02:07) Vital Signs and I&O's Vital Signs: Vital Signs Temperature 97.7 F Temperature 98.1 F Pulse Rate [Brachial] 78 Pulse Rate [Brachial] 74 Respiratory Rate 21 Respiratory Rate 18 Blood Pressure [Left Arm] 123/57 Blood Pressure [Left Arm] 170/56 O2 Sat by Pulse Oximetry 96 O2 Sat by Pulse Oximetry 96 Intake and Output: Intake & Output 06/20/24 06/21/24 06/22/24 06/23/24 23:59 23:59 23:59 23:59 Intake Total 482 / 482 1530 / 1530 Output Total 3425 / 3425 2099 / 2099 Balance -2943 / -2943 -570 / -570 Physical Exam Oriented: Normal Throat: Normal Respiratory: Generalized and Diminished Cardiovascular: Normal and Edema Auscultation: Bowel Sounds: Normal Palpation: Normal Tenderness: Normal Skin: Normal Musculoskeletal: Normal Psychiatric: Normal Mood Description: Calm Affect: Normal Speech Pattern: Clear and Appropriate Laboratory and Diagnostics 06/23/24 05:15 06/23/24 05:15 Labs: 06/21/24 09:40 Urine,Catheterized Urine Culture - Final Enterobacter Aerogenes 06/20/24 12:03 Urine,Clean Catch Urine Culture - Final Enterobacter Aerogenes Laboratory WBC 7.1 X10^3/uL (3.6-10.0) 06/23/24 05:15 RBC 5.10 X10^6/uL (3.5-5.4) 06/23/24 05:15 Hgb 12.1 g/dL (12.0-16.0) 06/23/24 05:15 Hct 38.9 % (36.0-47.0) 06/23/24 05:15 MCV 76.2 fL (80.0-100.0) L 06/23/24 05:15 MCH 23.7 pg (27.0-34.0) L 06/23/24 05:15 MCHC 31.1 g/dL (33.0-35.0) L 06/23/24 05:15 RDW 17.3 % (11.6-16.5) H 06/23/24 05:15 Plt Count 182 X10^3/uL (150.0-450.0) 06/23/24 05:15 Plt Count Comment Adequate (ADEQUATE) 06/20/24 10:45 MPV 9.4 fL (7.4-11.0) 06/23/24 05:15 Neut % (Auto) 66.9 % (42.0-75.0) 06/23/24 05:15 Lymph % (Auto) 20.8 % (21.0-51.0) L 06/23/24 05:15 [place] % (Auto) 10.7 % (0.0-13.0) 06/23/24 05:15 Eos % (Auto) 1.0 % (0.9-2.9) 06/23/24 05:15 Baso % (Auto) 0.6 % (0.2-1.0) 06/23/24 05:15 Neut # (Auto) 4.7 x10^3/uL (2.2-4.8) 06/23/24 05:15 Lymph # (Auto) 1.5 X10^3/uL (1.3-2.9) 06/23/24 05:15 [place] # (Auto) 0.8 x10^3/uL (0.3-0.8) 06/23/24 05:15 Eos # (Auto) 0.1 x10^3/uL (0.0-0.2) 06/23/24 05:15 Baso # (Auto) 0.0 X10^3/uL (0.0-0.1) 06/23/24 05:15 Absolute Nucleated RBC 0.2 /100WBC 06/23/24 05:15 Total Counted 100 06/20/24 10:45 Neutrophils % (Manual) 77 % (39-76) H 06/20/24 10:45 Band Neutrophils % 3 % (0-10) 06/20/24 10:45 Lymphocytes % (Manual) 14 % (13-43) 06/20/24 10:45 Monocytes % (Manual) 6 % (4-9) 06/20/24 10:45 Plt Morphology Comment Normal (NORMAL) 06/20/24 10:45 RBC Morphology Abnormal (NORMAL) A 06/20/24 10:45 Hypochromasia 1+ A 06/20/24 10:45 Anisocytosis Slight A 06/20/24 10:45 Microcytosis Slight A 06/20/24 10:45 Stomatocytes Slight A 06/20/24 10:45 D-Dimer 4.31 ug/ml (0.0-0.57) H 06/20/24 10:45 Sample Site L rad 06/23/24 05:05 ABG pH 7.540 (7.35-7.45) H 06/23/24 05:05 ABG pCO2 60.0 mmHg (35.0-45.0) H* 06/23/24 05:05 ABG pO2 79.0 mmHg (80.0-100.0) L 06/23/24 05:05 ABG HCO3 51.3 mmol/L (22-26) H* 06/23/24 05:05 ABG O2 Saturation 97.0 % (90-100) 06/23/24 05:05 ABG Base Excess 24.8 mmol/L (-2.0-2.0) H 06/23/24 05:05 Jose Angel Test Pos 06/23/24 05:05 A-a Gradient 103.0 mmHg 06/23/24 05:05 FiO2 36.0 06/23/24 05:05 Blood Gas Comments 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, 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 06/23/24 05:05 Sodium 140 mmol/L (136-145) 06/23/24 05:15 Corrected Sodium 141 mmol/L (136-145) 06/23/24 05:15 Potassium 3.8 mmol/L (3.5-5.1) 06/23/24 05:15 Chloride 96 mmol/L (98-107) L 06/23/24 05:15 Carbon Dioxide > 45.0 mmol/L (21-32) H* 06/23/24 05:15 BUN 11 mg/dL (7-18) 06/23/24 05:15 Creatinine 0.73 mg/dL (0.55-1.02) 06/23/24 05:15 Est GFR (MDRD) Af Amer > 60 (>60) 06/23/24 05:15 Est GFR (MDRD) Non-Af > 60 (>60) 06/23/24 05:15 Glucose 144 mg/dL (65-99) H 06/23/24 05:15 POC Glucose (mg/dL) 144 mg/dL (65-99) H 06/23/24 05:10 Calcium 9.3 mg/dL (8.5-10.1) 06/23/24 05:15 Corrected Calcium 9.9 mg/dL (8.5-10.1) 06/23/24 05:15 Magnesium 1.9 mg/dL (2.0-2.9) L 06/23/24 05:15 Ferritin 17 ng/mL (8-252) 06/22/24 05:12 Total Bilirubin 0.70 mg/dL (0.2-1.0) 06/23/24 05:15 AST 27 Units/L (15-37) 06/23/24 05:15 ALT 74 Units/L (12-78) 06/23/24 05:15 Alkaline Phosphatase 101 Units/L (46-116) 06/23/24 05:15 Troponin I High Sens 58.0 ng/L (4.0-60.0) 06/20/24 10:45 B-Natriuretic Peptide 252 pg/mL (0-79) H 06/20/24 10:45 Total Protein 7.0 g/dL (6.4-8.2) 06/23/24 05:15 Albumin 3.2 g/dL (3.4-5.0) L 06/23/24 05:15 Globulin 3.8 g/dL (2.5-4.5) 06/23/24 05:15 Albumin/Globulin Ratio 0.8 Ratio (1.1-2.1) L 06/23/24 05:15 Specimen Type Catherized urine 06/21/24 09:52 Urine Color Pale yellow (YELLOW) 06/21/24 09:52 Urine Appearance Clear (CLEAR) 06/21/24 09:52 Urine pH 6.0 (5.0 - 8.0) 06/21/24 09:52 Ur Specific [place] 1.015 (1.000-1.030) 06/21/24 09:52 Urine Protein 1+ (NEGATIVE) 06/21/24 09:52 Urine Glucose (UA) 4+ (NEGATIVE) 06/21/24 09:52 Urine Ketones Negative (NEGATIVE) 06/21/24 09:52 Urine Blood Negative (NEGATIVE) 06/21/24 09:52 Urine Nitrite Positive (NEGATIVE) 06/21/24 09:52 Urine Bilirubin Negative (NEGATIVE) 06/21/24 09:52 Urine Urobilinogen Normal (NORMAL) 06/21/24 09:52 Ur Leukocyte Esterase Negative (NEGATIVE) 06/21/24 09:52 Urine RBC 5-10 /HPF (0-3) A 06/21/24 09:52 Urine WBC 3-5 /HPF (0-5) 06/21/24 09:52 Ur Squamous Epith Cells Few /HPF (NEGATIVE) 06/21/24 09:52 Urine Bacteria 2+ /HPF (NEGATIVE) 06/21/24 09:52 Hyaline Casts Rare /LPF (NEGATIVE) 06/20/24 12:03 Urine Mucus Rare /HPF (NEGATIVE) 06/20/24 12:03 Ur Culture Indicated? Yes/culture set up 06/21/24 09:52 SARS-CoV-2 (PCR) Negative (NEGATIVE) 06/21/24 12:10 Influenza Type A (PCR) Negative (NEGATIVE) 06/21/24 12:10 Influenza Type B (PCR) Negative (NEGATIVE) 06/21/24 12:10 RSV (PCR) Negative (NEGATIVE) 06/21/24 12:10 Plan (1) Acute and chronic respiratory failure with hypercapnia: Status: Acute (2) Pneumonia: Status: Acute Qualifiers: Laterality: left Lung location: unspecified part of lung Pneumonia type: due to unspecified organism Qualified Code(s): J18.9 - Pneumonia, unspecified organism (3) UTI (urinary tract infection): Status: Acute Qualifiers: Hematuria presence: without hematuria Urinary tract infection type: acute cystitis Qualified Code(s): N30.00 - Acute cystitis without hematuria (4) Decompensated heart failure: Status: Acute (5) COPD (chronic obstructive pulmonary disease): Status: Chronic Qualifiers: COPD type: unspecified COPD Qualified Code(s): J44.9 - Chronic obstructive pulmonary disease, unspecified (6) History of atrial fibrillation: Status: Chronic (7) Hypertension: Status: Chronic Qualifiers: Hypertension type: primary hypertension Qualified Code(s): I10 - Essential (primary) hypertension (8) Obesity hypoventilation syndrome: Status: Chronic
[2024-06-23] MEDS: PEPCID TAB 40 MG PO SCH (11:05)
[2024-06-23] MEDS: DIFLUCAN 200 MG IV PREMIX* 200 MG/100 ML BAG IV SCH (11:05)
[2024-06-23] MEDS: NS 250 ML IV 250 ML IV ONE (11:22)
[2024-06-24] MEDS: TYLENOL 325 MG TAB PO PRN (02:52)
[2024-06-24 06:11] LABS: BASOPHILS % (AUTO) 0.5 % (0.2-1.0); EOSINOPHILS # (AUTO) 0.1 x10^3/uL (0.0-0.2); EOSINOPHILS % (AUTO) 1.5 % (0.9-2.9); HEMATOCRIT 33.9 % (36.0-47.0); HEMOGLOBIN 10.6 g/dL (12.0-16.0); LYMPHOCYTES # (AUTO) 1.6 X10^3/uL (1.3-2.9); LYMPHOCYTES % (AUTO) 23.2 % (21.0-51.0); MEAN CORPUSCULAR HEMOGLOBIN 23.8 pg (27.0-34.0); MEAN CORPUSCULAR HGB CONC 31.2 g/dL (33.0-35.0); MEAN CORPUSCULAR VOLUME 76.3 fL (80.0-100.0); MONOCYTES # (AUTO) 0.8 x10^3/uL (0.3-0.8); MONOCYTES % (AUTO) 10.9 % (0.0-13.0); NEUTROPHILS # (AUTO) 4.5 x10^3/uL (2.2-4.8); NEUTROPHILS % (AUTO) 63.9 % (42.0-75.0); PLATELET COUNT 147 X10^3/uL (150.0-450.0); RED BLOOD COUNT 4.45 X10^6/uL (3.5-5.4); RED CELL DISTRIBUTION WIDTH 17.6 % (11.6-16.5)
[2024-06-24 06:34] LABS: ALANINE AMINOTRANSFERASE 43 Units/L (12-78); ALBUMIN 2.5 g/dL (3.4-5.0); ALKALINE PHOSPHATASE 89 Units/L (46-116); ASPARTATE AMINO TRANSFERASE 16 Units/L (15-37); BLOOD UREA NITROGEN 11 mg/dL (7-18); CALCIUM 8.6 mg/dL (8.5-10.1); CARBON DIOXIDE 42.7 mmol/L (21-32); CHLORIDE 97 mmol/L (98-107); COR CA(FOR HYPOALB) 9.8 mg/dL (8.5-10.1); COR NA(FOR HYPERGLY) 141 mmol/L (136-145); CREATININE 0.75 mg/dL (0.55-1.02); GLUCOSE 168 mg/dL (65-99); POTASSIUM 3.6 mmol/L (3.5-5.1); SODIUM 139 mmol/L (136-145); TOTAL PROTEIN 5.6 g/dL (6.4-8.2); eGFR NON BLACK RACES > 60 (>60)
[2024-06-24] MEDS: GLUCOPHAGE ONE (06:38)
[2024-06-24] MEDS: LASIX IVP SCH (09:06)
[2024-06-24 14:39] VITALS: BP 147/61; PULSE 61; RESP 19; TEMP 97.8; O2SAT 96
== END 2024-06-24 15:15 | disposition home or self-care (01) | DRG 189 ==
LOC: ER 10:26 → MED/SURG 18:39
PROVIDERS: ADMIT Obstetrics & Gynecology Obstetrics; ATTEND Internal Medicine
DX: E83.42 Hypomagnesemia; Z03.818 Encounter for observation for suspected exposure to other biological agents ruled out; R73.09 Other abnormal glucose; B96.89 Other specified bacterial agents as the cause of diseases classified elsewhere; J18.8 Other pneumonia, unspecified organism; Z16.11 Resistance to penicillins; J96.21 Acute and chronic respiratory failure with hypoxia; Z16.12 Extended spectrum beta lactamase (ESBL) resistance; I11.0 Hypertensive heart disease with heart failure; Z68.43 Body mass index [BMI] 50.0-59.9, adult; J96.22 Acute and chronic respiratory failure with hypercapnia; F41.8 Other specified anxiety disorders; R94.31 Abnormal electrocardiogram [ECG] [EKG]; Z79.01 Long term (current) use of anticoagulants; E66.2 Morbid (severe) obesity with alveolar hypoventilation; J44.9 Chronic obstructive pulmonary disease, unspecified; I50.9 Heart failure, unspecified; Z16.19 Resistance to other specified beta lactam antibiotics; N30.00 Acute cystitis without hematuria

== ENCOUNTER 2024-11-28 22:12 | Inpatient (IN) ==
--- NOTE | 2024-11-28 22:37 | DR.SOBA ---
HPI Time Seen Time Seen by Provider: 11/28/24 22:36 Complaints Chief Complaint Doctors Comments: She has chronic congestive heart failure which she stated shortness of breath got worse today. Patient complained of increasing swelling of her legs and she states she has been given herself in addition to her 40 mg of oral Lasix twice a day she gave herself 20 mg IM twice today. PMH PMH Past Medical History: Anxiety, CHF, COPD, Dyslipidemia, Hypertension and Sleep Apnea Past Surgical History: Yes Surgical History: Hysterectomy and Ortho Surgery Family History Family Medical History: Diabetes Mellitus, Cancer, ND and Hypertension Social History Do you use any recreational Drugs:: No ROS Review of Systems Constitutional: Other (Mild CHF with increased weight gain and progressive shortness of breath) Eyes: No Symptoms Reported ENTM: No Symptoms Reported Respiratoy: Short of Breath Cardiovascular: No Symptoms Reported Gastrointestinal/Abdominal: No Symptoms Reported Genitourinary: No Symptoms Reported Neurological: No Symptoms Reported Musculoskeletal: No Symptoms Reported Integumentary: No Symptoms Reported Hematologic/Lymphatic: No Symptoms Reported Endocrine: No Symptoms Reported Psychiatric: No Symptoms Reported All Other Systems: Reviewed and Negative PE Vital Signs Vitals: Vital Signs Temperature 97.5 F Pulse Rate 56 Pulse Rate 56 Pulse Rate 55 Pulse Rate 55 Pulse Rate 55 Pulse Rate 55 Pulse Rate 55 Pulse Rate 55 Pulse Rate 54 Pulse Rate 56 Pulse Rate 56 Pulse Rate 56 Pulse Rate 53 Pulse Rate 53 Pulse Rate 53 Pulse Rate 56 Pulse Rate 53 Pulse Rate 54 Pulse Rate 57 Pulse Rate 60 Pulse Rate 55 Pulse Rate 56 Pulse Rate 55 Pulse Rate 57 Pulse Rate 60 Pulse Rate 60 Pulse Rate 62 Pulse Rate 64 Pulse Rate 65 Pulse Rate 61 Respiratory Rate 14 Respiratory Rate 14 Respiratory Rate 14 Respiratory Rate 14 Respiratory Rate 15 Respiratory Rate 14 Respiratory Rate 13 Respiratory Rate 13 Respiratory Rate 14 Respiratory Rate 19 Respiratory Rate 21 Respiratory Rate 19 Respiratory Rate 15 Respiratory Rate 20 Respiratory Rate 14 Respiratory Rate 17 Respiratory Rate 18 Respiratory Rate 18 Respiratory Rate 22 Respiratory Rate 20 Respiratory Rate 18 Respiratory Rate 14 Respiratory Rate 15 Respiratory Rate 20 Respiratory Rate 21 Respiratory Rate 22 Blood Pressure 138/63 Blood Pressure 138/63 Blood Pressure 137/62 Blood Pressure 137/62 Blood Pressure 137/62 Blood Pressure 120/59 Blood Pressure 137/63 Blood Pressure 137/63 Blood Pressure 127/58 Blood Pressure 128/58 Blood Pressure 181/74 Blood Pressure 147/67 Blood Pressure 147/67 Blood Pressure 136/63 Blood Pressure 155/67 Blood Pressure 155/67 O2 Sat by Pulse Oximetry 97 O2 Sat by Pulse Oximetry 97 O2 Sat by Pulse Oximetry 96 O2 Sat by Pulse Oximetry 95 O2 Sat by Pulse Oximetry 95 O2 Sat by Pulse Oximetry 96 O2 Sat by Pulse Oximetry 96 O2 Sat by Pulse Oximetry 94 O2 Sat by Pulse Oximetry 96 O2 Sat by Pulse Oximetry 97 O2 Sat by Pulse Oximetry 96 O2 Sat by Pulse Oximetry 97 O2 Sat by Pulse Oximetry 97 O2 Sat by Pulse Oximetry 96 O2 Sat by Pulse Oximetry 97 O2 Sat by Pulse Oximetry 98 O2 Sat by Pulse Oximetry 97 O2 Sat by Pulse Oximetry 98 O2 Sat by Pulse Oximetry 97 O2 Sat by Pulse Oximetry 98 O2 Sat by Pulse Oximetry 97 O2 Sat by Pulse Oximetry 98 O2 Sat by Pulse Oximetry 98 O2 Sat by Pulse Oximetry 100 O2 Sat by Pulse Oximetry 100 O2 Sat by Pulse Oximetry 100 O2 Sat by Pulse Oximetry 100 O2 Sat by Pulse Oximetry 96 O2 Sat by Pulse Oximetry 92 O2 Sat by Pulse Oximetry 98 General Limitations: Physical Limitation (due to increased weight gain and lymphadema it imore difficult to ambulate) General Appearance: Alert and In Distress (mild distress) Head Head Exam: Normal Inspection, Atraumatic and Normocephalic Eyes Eye exam: Normal Appearance, PERRL and EOMI ENT ENT Exam: Normal Exam, Normal Oropharynx and Normal External Ear Exam Neck Neck Exam: Normal Inspection Chest Chest Inspection: Normal Inspection and Symmetric Chest Wall Rise Respiratory Respiratory Exam: Normal Lung Sounds Bilat Respiratory Exam: Bilateral: Clear to Auscultation Abdominal Exam Abdominal Exam: Normal Inspection, Normal Bowel Sounds and Distention Extremities Extremities Exam: Other (increased lymphadema) Back Back Exam: Normal Inspection Neurologic Neurological Exam: Alert, Oriented X3 and CN II-XII Intact Psychiatric Psychiatric Exam: Normal Affect MDM Differential Diagnosis Differential Diagnosis: CHF and Other (lymphadema) COURSE Treatment Treatment: This patient may relatively stable during ER visit. We did do a workup for congestive heart failure. EKG was sinus rhythm the BNP was 159 which was mildly elevated. The patient chest x-ray that was negative for infiltrate there was no pleural effusion. This patient had arterial blood gas done the pH was 7.36PO2 was 92 on 2 L PCO2 was 68 bicarbonate was 38.4 O2 sat was 97% on 2 L. We did do blood work and her BUN BUN was 35 creatinine was 1.46 her GFR was 37 her blood sugar was 224 CBC showed a hemoglobin of 9.5 hematocrit was 30 this patient did have a 50 pound weight gain over the last couple of months and this was probably due to her progressive lymphedema and renal insufficiency. This patient will be referred to observation after talking to Dr. Page at 0 255 we are going to put in for mild CHF and progressive lymphedema renal insufficiency. They did talk to case management and it was stated that the patient could be admitted to observation and I talked to Dr. Page and he did accept the patient for this observation admission. The patient was made aware of the intent to admit and was agreeable to the admission to observation. This patient was given Bumex 1 mg IV during the ER evaluation. ROR Labs Reviewed Laboratory Results Reviewed?: Yes 11/28/24 22:41 11/28/24 22:41 Laboratory: WBC 6.5 X10^3/uL (3.6-10.0) 11/28/24 22:41 RBC 3.80 X10^6/uL (3.5-5.4) 11/28/24 22:41 Hgb 9.5 g/dL (12.0-16.0) L 11/28/24 22:41 Hct 30.0 % (36.0-47.0) L 11/28/24 22:41 MCV 78.8 fL (80.0-100.0) L 11/28/24 22:41 MCH 25.0 pg (27.0-34.0) L 11/28/24 22:41 MCHC 31.7 g/dL (33.0-35.0) L 11/28/24 22:41 RDW 16.7 % (11.6-16.5) H 11/28/24 22:41 Plt Count 234 X10^3/uL (150.0-450.0) 11/28/24 22:41 MPV 9.6 fL (7.4-11.0) 11/28/24 22:41 Neut % (Auto) 72.1 % (42.0-75.0) 11/28/24 22:41 Lymph % (Auto) 14.2 % (21.0-51.0) L 11/28/24 22:41 [place] % (Auto) 10.0 % (0.0-13.0) 11/28/24 22:41 Eos % (Auto) 1.3 % (0.9-2.9) 11/28/24 22:41 Baso % (Auto) 2.4 % (0.2-1.0) H 11/28/24 22:41 Neut # (Auto) 4.7 x10^3/uL (2.2-4.8) 11/28/24 22:41 Lymph # (Auto) 0.9 X10^3/uL (1.3-2.9) L 11/28/24 22:41 [place] # (Auto) 0.7 x10^3/uL (0.3-0.8) 11/28/24 22:41 Eos # (Auto) 0.1 x10^3/uL (0.0-0.2) 11/28/24 22:41 Baso # (Auto) 0.2 X10^3/uL (0.0-0.1) H 11/28/24 22:41 Absolute Nucleated RBC 0.0 /100WBC 11/28/24 22:41 Sample Site Lr 11/28/24 22:50 ABG pH 7.360 (7.35-7.45) 11/28/24 22:50 ABG pCO2 68.0 mmHg (35.0-45.0) H* 11/28/24 22:50 ABG pO2 92.0 mmHg (80.0-100.0) 11/28/24 22:50 ABG HCO3 38.4 mmol/L (22-26) H* 11/28/24 22:50 ABG O2 Saturation 97.0 % (90-100) 11/28/24 22:50 ABG Base Excess 10.4 mmol/L (-2.0-2.0) H 11/28/24 22:50 Jose Angel Test Pos 11/28/24 22:50 A-a Gradient 23.0 mmHg 11/28/24 22:50 FiO2 28.0 11/28/24 22:50 Blood Gas Comments Dannie well ae 11/28/24 22:50 Sodium 139 mmol/L (136-145) 11/28/24 22:41 Corrected Sodium 142 mmol/L (136-145) 11/28/24 22:41 Potassium 4.3 mmol/L (3.5-5.1) 11/28/24 22:41 Chloride 98 mmol/L (98-107) 11/28/24 22:41 Carbon Dioxide 39.0 mmol/L (21-32) H 11/28/24 22:41 BUN 35 mg/dL (7-18) H 11/28/24 22:41 Creatinine 1.46 mg/dL (0.55-1.02) H 11/28/24 22:41 Est GFR (MDRD) Af Amer 45 (>60) L 11/28/24 22:41 Est GFR (MDRD) Non-Af 37 (>60) L 11/28/24 22:41 Glucose 224 mg/dL (65-99) H 11/28/24 22:41 Calcium 8.8 mg/dL (8.5-10.1) 11/28/24 22:41 Corrected Calcium 9.4 mg/dL (8.5-10.1) 11/28/24 22:41 Total Bilirubin 0.30 mg/dL (0.2-1.0) 11/28/24 22:41 AST 15 Units/L (15-37) 11/28/24 22:41 ALT 19 Units/L (12-78) 11/28/24 22:41 Alkaline Phosphatase 73 Units/L (46-116) 11/28/24 22:41 B-Natriuretic Peptide 159 pg/mL (0-79) H 11/28/24 22:41 Total Protein 7.0 g/dL (6.4-8.2) 11/28/24 22:41 Albumin 3.3 g/dL (3.4-5.0) L 11/28/24 22:41 Globulin 3.7 g/dL (2.5-4.5) 11/28/24 22:41 Albumin/Globulin Ratio 0.9 Ratio (1.1-2.1) L 11/28/24 22:41 Specimen Type Catherized urine 11/28/24 23:09 Urine Color Pale yellow (YELLOW) 11/28/24 23:09 Urine Appearance Clear (CLEAR) 11/28/24 23:09 Urine pH 6.0 (5.0 - 8.0) 11/28/24 23:09 Ur Specific [place] 1.020 (1.000-1.030) 11/28/24 23:09 Urine Protein 1+ (NEGATIVE) 11/28/24 23:09 Urine Glucose (UA) Negative (NEGATIVE) 11/28/24 23:09 Urine Ketones Negative (NEGATIVE) 11/28/24 23:09 Urine Blood Negative (NEGATIVE) 11/28/24 23:09 Urine Nitrite Negative (NEGATIVE) 11/28/24 23:09 Urine Bilirubin Negative (NEGATIVE) 11/28/24 23:09 Urine Urobilinogen Normal (NORMAL) 11/28/24 23:09 Ur Leukocyte Esterase Negative (NEGATIVE) 11/28/24 23:09 Urine RBC None seen /HPF (0-3) 11/28/24 23:09 Urine WBC 0-2 /HPF (0-5) 11/28/24 23:09 Ur Squamous Epith Cells Rare /HPF (NEGATIVE) 11/28/24 23:09 Urine Bacteria Negative /HPF (NEGATIVE) 11/28/24 23:09 Ur Culture Indicated? 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
[2024-11-28 22:55] LABS: ABG BASE EXCESS 10.4 mmol/L (-2.0-2.0); ABG OXYGEN SATURATION 97.0 % (90-100); ABG PH 7.360 (7.35-7.45); ABG PO2 92.0 mmHg (80.0-100.0)
[2024-11-28 22:56] LABS: ABG ALLEN TEST POS; ABG HCO3 38.4 mmol/L (22-26); ABG PCO2 68.0 mmHg (35.0-45.0)
[2024-11-28 23:08] LABS: RED CELL DISTRIBUTION WIDTH 16.7 % (11.6-16.5)
--- NOTE | 2024-11-28 23:13 | RAD ---
EXAM: CHEST, 1 VIEW HISTORY: SOB ; COMPARISON: 09/13/2024 FINDINGS: The trachea is midline. The cardiac silhouette is unremarkable . The lungs are clear without focal infiltrate or effusion. The bony thorax is unremarkable. IMPRESSION: No acute cardiopulmonary disease. THIS IS AN ELECTRONICALLY VERIFIED FINAL REPORT 11/28/2024 11:10 PM - Electronically signed by Ho Mcclellan MD
[2024-11-28 23:16] LABS: BLOOD/HEMOGLOBIN,URINE NEGATIVE (NEGATIVE); LEUKOCYTE ESTERASE ,URINE NEGATIVE (NEGATIVE); NITRITES,URINE NEGATIVE (NEGATIVE)
[2024-11-28 23:16] LABS: COR CA(FOR HYPOALB) 9.4 mg/dL (8.5-10.1); COR NA(FOR HYPERGLY) 142.0 mmol/L (136-145); CREATININE 1.46 mg/dL (0.55-1.02); eGFR NON BLACK RACES 37.0 (>60)
[2024-11-28 23:17] LABS: MEAN PLATELET VOLUME 9.6 fL (7.4-11.0)
[2024-11-28 23:21] LABS: APPEARANCE,URINE CLEAR (CLEAR); SQUAMOUS EPITHELIAL CELL,UR RARE /HPF (NEGATIVE)
[2024-11-29] MEDS: BUMEX INJ 1 MG VIAL IVP ONE (00:04)
[2024-11-29] MEDS ORDERED: MORPHINE SULFATE INJ 2 MG INJ IVP PRN (04:20)
[2024-11-29] MEDS ORDERED: TYLENOL 325 MG TAB PO PRN (04:20)
[2024-11-29] MEDS ORDERED: BUTT CREAM (COMPOUND) ONE (04:45)
[2024-11-29] MEDS: ULTRAM PO PRN (05:46)
[2024-11-29] MEDS ORDERED: GLUCOPHAGE ONE ×2 (06:16→16:10)
[2024-11-29 06:26] LABS: MEAN PLATELET VOLUME 9.5 fL (7.4-11.0); RED CELL DISTRIBUTION WIDTH 17.0 % (11.6-16.5)
[2024-11-29 06:27] VITALS: BMI 63.4
[2024-11-29] MEDS: GLUCOPHAGE PO SCH (06:33)
[2024-11-29 06:45] LABS: COR CA(FOR HYPOALB) 9.6 mg/dL (8.5-10.1); COR NA(FOR HYPERGLY) 142.0 mmol/L (136-145); CREATININE 1.31 mg/dL (0.55-1.02); eGFR NON BLACK RACES 42.0 (>60)
[2024-11-29] MEDS: ASPIRIN EC 81 MG PO SCH (09:37)
[2024-11-29] MEDS: TRICOR TAB 145 MG PO SCH (09:37)
[2024-11-29] MEDS: LASIX IVP SCH (09:41)
[2024-11-29] MEDS: ALDACTONE TAB 25 MG PO SCH (09:41)
[2024-11-29] MEDS: PEPCID TAB 40 MG PO SCH (09:41)
[2024-11-29] MEDS: ELIQUIS PO SCH (09:41)
[2024-11-29] MEDS: BETAPACE AF PO SCH (09:41)
[2024-11-29] MEDS: JANUVIA PO SCH (09:42)
--- NOTE | 2024-11-29 12:16 | DR.H&P ---
H&P History & Physical for Day of: H&P Date: 11/29/24 Chief Complaint Chief Complaint: bilateral lower extremity swelling History of Present Illness History of Present Illness: Patient is a 74-year-old female with a past medical history of CHF, hypertension, hyperlipidemia, COPD, admitted for CHF exacerbation. She reports having lower extremity swelling that is reaching up to her abdomen. She has been taking her home Lasix. She denies having shortness of breath. Labs/imaging: WBC 4.8, hemoglobin 8.7, platelets 197, sodium 140, potassium 4.3, creatinine 1.31, glucose 185, chest x-ray negative, ABG: pH 7.36, LBI107, PO292, HCO3 38, O2 sat 97% on 2 L nasal cannula. BNP 159, UA negative. Patient was admitted for CHF exacerbation. Will order IV Lasix 40 mg twice daily. Restart home medications. Monitor I's and O's. Otherwise continue current treatment plan. Continue closely monitor and follow-up labs/imaging. Past Medical History Past Medical History: Anxiety, CHF, COPD, Dyslipidemia, Hypertension and Sleep Apnea Additional Medical History: Atrial Fibrillation, Sleep Apnea, Diarrhea, Constipation, H-pylori, Endometriosis, Fibromyalgia, Degernative Disc Disease, Cellutlitis, Lymphedema, elephantitis. Past Surgical History Surgical History: Hysterectomy and Ortho Surgery Additional Surgical History: Lap Band, Tubal Ligation Family History Family Medical History: Diabetes Mellitus, Cancer, [place] and Hypertension Social History Does patient currently use any type of tobacco product: No Have you used tobacco products in the last 12 months: No Type of Tobacco Use: None Does any household member use tobacco: No Alcohol Use: None Drug Use: None Medications Home Medications: Home Medications Medication Instructions Recorded Confirmed Type apixaban 5 mg tablet (Eliquis) 5 mg PO BID 10/24/18 History furosemide 40 mg tablet (Lasix) 40 mg PO BID 10/24/18 09/10/24 History pantoprazole 40 mg tablet,delayed 40 mg PO BID 9 09/10/24 History release rosuvastatin 20 mg tablet 20 mg PO HS 10/24/18 5 History sotalol 80 mg tablet 80 mg PO BID 10/24/18 History spironolactone 25 mg tablet 25 mg PO QDAY 11/14/18 History ropinirole 1 mg tablet 1 mg PO BID 06/21/24 5 History fenofibrate 160 mg tablet 134 mg PO HS 06/22/24 History aspirin 81 mg tablet,delayed 81 mg PO QDAY 09/10/24 History release ciprofloxacin HCl 500 mg tablet 500 mg PO BID 09/10/24 09/10/24 History diclofenac sodium 75 mg 75 mg PO BID 09/10/24 History tablet,delayed release ergocalciferol (vitamin D2) 1,250 1,250 mcg PO QWEEK 0 09/10/24 09/10/24 History mcg (50,000 unit) capsule (Vitamin D2) famotidine 40 mg tablet 40 mg PO BID 09/10/24 History fluconazole 100 mg tablet 100 mg PO QDAY 09/10/2408/28 History metronidazole 500 mg tablet 500 mg PO BID 09/10/24 History scopolamine base 1 mg over 3 days 1 patch transdermal Q72H 09/10/24 09/10/24 History transdermal patch sitagliptin phosphate 100 mg 100 mg PO QDAY 09/10/24 0 09/10/24 History tablet (Januvia) Allergies Allergies Allergy/AdvReac Type Severity Reaction Status Date / Time meperidine (From Demerol) Allergy Verified 10/17/24 08:57 Labs 11/29/24 05:35 11/29/24 05:35 Labs: Laboratory WBC 4.8 X10^3/uL (3.6-10.0) 11/29/24 05:35 RBC 3.51 X10^6/uL (3.5-5.4) 11/29/24 05:35 Hgb 8.7 g/dL (12.0-16.0) L 11/29/24 05:35 Hct 28.0 % (36.0-47.0) L 11/29/24 05:35 MCV 79.8 fL (80.0-100.0) L 11/29/24 05:35 MCH 24.9 pg (27.0-34.0) L 11/29/24 05:35 MCHC 31.1 g/dL (33.0-35.0) L 11/29/24 05:35 RDW 17.0 % (11.6-16.5) H 11/29/24 05:35 Plt Count 197 X10^3/uL (150.0-450.0) 11/29/24 05:35 MPV 9.5 fL (7.4-11.0) 11/29/24 05:35 Neut % (Auto) 66.3 % (42.0-75.0) 11/29/24 05:35 Lymph % (Auto) 21.7 % (21.0-51.0) 11/29/24 05:35 [place] % (Auto) 10.7 % (0.0-13.0) 11/29/24 05:35 Eos % (Auto) 0.9 % (0.9-2.9) 11/29/24 05:35 Baso % (Auto) 0.4 % (0.2-1.0) 11/29/24 05:35 Neut # (Auto) 3.2 x10^3/uL (2.2-4.8) 11/29/24 05:35 Lymph # (Auto) 1.0 X10^3/uL (1.3-2.9) L 11/29/24 05:35 [place] # (Auto) 0.5 x10^3/uL (0.3-0.8) 11/29/24 05:35 Eos # (Auto) 0.0 x10^3/uL (0.0-0.2) 11/29/24 05:35 Baso # (Auto) 0.0 X10^3/uL (0.0-0.1) 11/29/24 05:35 Absolute Nucleated RBC 0.2 /100WBC 11/29/24 05:35 Sample Site Lr 11/28/24 22:50 ABG pH 7.360 (7.35-7.45) 11/28/24 22:50 ABG pCO2 68.0 mmHg (35.0-45.0) H* 11/28/24 22:50 ABG pO2 92.0 mmHg (80.0-100.0) 11/28/24 22:50 ABG HCO3 38.4 mmol/L (22-26) H* 11/28/24 22:50 ABG O2 Saturation 97.0 % (90-100) 11/28/24 22:50 ABG Base Excess 10.4 mmol/L (-2.0-2.0) H 11/28/24 22:50 Jose Angel Test Pos 11/28/24 22:50 A-a Gradient 23.0 mmHg 11/28/24 22:50 FiO2 28.0 11/28/24 22:50 Blood Gas Comments Dannie well ae 11/28/24 22:50 Sodium 140 mmol/L (136-145) 11/29/24 05:35 Corrected Sodium 142 mmol/L (136-145) 11/29/24 05:35 Potassium 4.3 mmol/L (3.5-5.1) 11/29/24 05:35 Chloride 101 mmol/L (98-107) 11/29/24 05:35 Carbon Dioxide 39.1 mmol/L (21-32) H 11/29/24 05:35 BUN 32 mg/dL (7-18) H 11/29/24 05:35 Creatinine 1.31 mg/dL (0.55-1.02) H 11/29/24 05:35 Est GFR (MDRD) Af Amer 51 (>60) L 11/29/24 05:35 Est GFR (MDRD) Non-Af 42 (>60) L 11/29/24 05:35 Glucose 185 mg/dL (65-99) H 11/29/24 05:35 POC Glucose (mg/dL) 155 mg/dL (65-99) H 11/29/24 11:51 Calcium 8.8 mg/dL (8.5-10.1) 11/29/24 05:35 Corrected Calcium 9.6 mg/dL (8.5-10.1) 11/29/24 05:35 Total Bilirubin 0.20 mg/dL (0.2-1.0) 11/29/24 05:35 AST 17 Units/L (15-37) 11/29/24 05:35 ALT 14 Units/L (12-78) 11/29/24 05:35 Alkaline Phosphatase 65 Units/L (46-116) 11/29/24 05:35 B-Natriuretic Peptide 159 pg/mL (0-79) H 11/28/24 22:41 Total Protein 6.4 g/dL (6.4-8.2) 11/29/24 05:35 Albumin 3.0 g/dL (3.4-5.0) L 11/29/24 05:35 Globulin 3.4 g/dL (2.5-4.5) 11/29/24 05:35 Albumin/Globulin Ratio 0.9 Ratio (1.1-2.1) L 11/29/24 05:35 Specimen Type Catherized urine 11/28/24 23:09 Urine Color Pale yellow (YELLOW) 11/28/24 23:09 Urine Appearance Clear (CLEAR) 11/28/24 23:09 Urine pH 6.0 (5.0 - 8.0) 11/28/24 23:09 Ur Specific [place] 1.020 (1.000-1.030) 11/28/24 23:09 Urine Protein 1+ (NEGATIVE) 11/28/24 23:09 Urine Glucose (UA) Negative (NEGATIVE) 11/28/24 23:09 Urine Ketones Negative (NEGATIVE) 11/28/24 23:09 Urine Blood Negative (NEGATIVE) 11/28/24 23:09 Urine Nitrite Negative (NEGATIVE) 11/28/24 23:09 Urine Bilirubin Negative (NEGATIVE) 11/28/24 23:09 Urine Urobilinogen Normal (NORMAL) 11/28/24 23:09 Ur Leukocyte Esterase Negative (NEGATIVE) 11/28/24 23:09 Urine RBC None seen /HPF (0-3) 11/28/24 23:09 Urine WBC 0-2 /HPF (0-5) 11/28/24 23:09 Ur Squamous Epith Cells Rare /HPF (NEGATIVE) 11/28/24 23:09 Urine Bacteria Negative /HPF (NEGATIVE) 11/28/24 23:09 Ur Culture Indicated? No/not indicated 11/28/24 23:09 Review of Systems Constitutional: Weakness Eyes: No Symptoms Reported ENT: No Symptoms Reported Respiratory: No Symptoms Reported Cardiovascular: Edema Gastrointestinal: No Symptoms Reported Genitourinary: No Symptoms Reported Musculoskeletal: No Symptoms Reported Skin: No Symptoms Reported Neurological: No Symptoms Reported Physical Exam Vital Signs: Vital Signs Temperature 97.4 F Temperature 97.3 F Pulse Rate [Left Brachial] 68 Pulse Rate [Left Brachial] 55 Pulse Rate 63 Pulse Rate 68 Respiratory Rate 19 Respiratory Rate 18 Respiratory Rate 18 Respiratory Rate 39 Blood Pressure [Left Arm] 119/59 Blood Pressure [Left Arm] 116/56 O2 Sat by Pulse Oximetry 94 O2 Sat by Pulse Oximetry 95 O2 Sat by Pulse Oximetry 94 Oriented: Normal Eyes: Normal Ear: Normal Nose: Normal Throat: Normal Respiratory: Clear Throughout Cardiovascular: Edema (3+ BLE) : Normal Auscultation: Bowel Sounds: Normal Palpation: Normal Tenderness: Normal Skin: Normal Musculoskeletal: Normal Psychiatric: Normal Mood Description: Calm and Appropriate Affect: Normal Speech Pattern: Clear and Appropriate Assessment/Plan (1) CHF exacerbation: Qualifiers: Heart failure type: unspecified Qualified Code(s): I50.9 - Heart failure, unspecified Status: Acute Plan: IV lasix 40mg BID Monitor I's and O's (2) Chronic renal insufficiency: Qualifiers: Chronic kidney disease stage: unspecified stage Qualified Code(s): N 18.9 - Chronic kidney disease, unspecified Status: Acute Review H&P Reviewed: Yes Patient was examined?: Yes
[2024-11-29] MEDS: NovoLIN R (or HumuLIN R) SUBCUT PRN (17:08)
[2024-11-29] MEDS: SNACK - Diabetic Appropriate PO SCH (20:00)
[2024-11-29] MEDS: CRESTOR TAB 10 MG PO SCH (20:45)
[2024-11-29] MEDS ORDERED: INSULIN GLARGINE SQ SCH (21:00)
[2024-11-29] MEDS: LANTUS SC SCH (21:58)
[2024-11-30] MEDS: NORCO 5/325 MG TAB PO PRN (02:35)
[2024-11-30 06:10] LABS: MEAN PLATELET VOLUME 9.7 fL (7.4-11.0); RED CELL DISTRIBUTION WIDTH 16.5 % (11.6-16.5)
[2024-11-30 06:16] LABS: COR CA(FOR HYPOALB) 9.6 mg/dL (8.5-10.1); COR NA(FOR HYPERGLY) 142.0 mmol/L (136-145); CREATININE 1.33 mg/dL (0.55-1.02); eGFR NON BLACK RACES 42.0 (>60)
--- NOTE | 2024-11-30 11:16 | PCM.PROG ---
Progress Note Progress Note for Day of Date of Exam: 11/30/24 Subjective Subjective: Patient is a 74-year-old female with a past medical history of CHF, hypertension, hyperlipidemia, COPD, admitted for CHF exacerbation. This morning she is sitting in the recliner. She does report having a lot of back pain. She reports some improvement in her lower extremity edema. Labs/imaging: WBC 6.1, hemoglobin 9.4, platelets 236, sodium 139, potassium 4.6, creatinine 1.33, glucose 205. Patient is currently receiving IV Lasix 40 mg twice daily. She did have a net output of 715 mL over 24-hour period. However family would like for her to try on Bumex which is reasonable. Will change her to an IV Bumex 1 mg twice daily and monitor output. Will also adjust her pain medication to help and add Toradol. Home medications have been resumed. Monitor I's and O's. Otherwise continue current treatment plan. Continue closely monitor and follow- up labs/imaging. Past Medical Family Social History Allergies: Allergies meperidine (From Demerol) Allergy (Verified 10/17/24 08:57) Review of Systems ROS changes noted: see HPI Vital Signs and I&O's Vital Signs: Vital Signs Temperature 98.2 F Temperature 97.5 F Pulse Rate [Left Brachial] 68 Pulse Rate [Left Brachial] 73 Respiratory Rate 20 Respiratory Rate 18 Respiratory Rate 18 Respiratory Rate 17 Blood Pressure [Left Arm] 117/51 Blood Pressure [Left Arm] 106/55 O2 Sat by Pulse Oximetry 98 O2 Sat by Pulse Oximetry 92 Intake and Output: Intake & Output 11/27/24 11/28/24 11/29/24 11/30/24 23:59 23:59 23:59 23:59 Intake Total 1200 / 1200 120 / 120 Output Total 2500 / 2500 150 / 150 Balance -1300 / -1300 -30 / -30 Physical Exam Oriented: Normal Eyes: Normal Ear: Normal Nose: Normal Throat: Normal Respiratory: Normal Cardiovascular: Edema (3+ BLE) : Normal Auscultation: Bowel Sounds: Normal Tenderness: Normal Skin: Normal Musculoskeletal: Normal Psychiatric: Normal Mood Description: Calm and Appropriate Affect: Normal Speech Pattern: Clear and Appropriate Laboratory and Diagnostics 11/30/24 05:18 11/30/24 05:18 Labs: Laboratory WBC 6.1 X10^3/uL (3.6-10.0) 11/30/24 05:18 RBC 3.71 X10^6/uL (3.5-5.4) 11/30/24 05:18 Hgb 9.4 g/dL (12.0-16.0) L 11/30/24 05:18 Hct 29.4 % (36.0-47.0) L 11/30/24 05:18 MCV 79.2 fL (80.0-100.0) L 11/30/24 05:18 MCH 25.2 pg (27.0-34.0) L 11/30/24 05:18 MCHC 31.8 g/dL (33.0-35.0) L 11/30/24 05:18 RDW 16.5 % (11.6-16.5) 11/30/24 05:18 Plt Count 236 X10^3/uL (150.0-450.0) 11/30/24 05:18 MPV 9.7 fL (7.4-11.0) 11/30/24 05:18 Neut % (Auto) 63.7 % (42.0-75.0) 11/30/24 05:18 Lymph % (Auto) 22.5 % (21.0-51.0) 11/30/24 05:18 [place] % (Auto) 12.5 % (0.0-13.0) 11/30/24 05:18 Eos % (Auto) 1.0 % (0.9-2.9) 11/30/24 05:18 Baso % (Auto) 0.3 % (0.2-1.0) 11/30/24 05:18 Neut # (Auto) 3.9 x10^3/uL (2.2-4.8) 11/30/24 05:18 Lymph # (Auto) 1.4 X10^3/uL (1.3-2.9) 11/30/24 05:18 [place] # (Auto) 0.8 x10^3/uL (0.3-0.8) 11/30/24 05:18 Eos # (Auto) 0.1 x10^3/uL (0.0-0.2) 11/30/24 05:18 Baso # (Auto) 0.0 X10^3/uL (0.0-0.1) 11/30/24 05:18 Absolute Nucleated RBC 0.1 /100WBC 11/30/24 05:18 Sample Site Lr 11/28/24 22:50 ABG pH 7.360 (7.35-7.45) 11/28/24 22:50 ABG pCO2 68.0 mmHg (35.0-45.0) H* 11/28/24 22:50 ABG pO2 92.0 mmHg (80.0-100.0) 11/28/24 22:50 ABG HCO3 38.4 mmol/L (22-26) H* 11/28/24 22:50 ABG O2 Saturation 97.0 % (90-100) 11/28/24 22:50 ABG Base Excess 10.4 mmol/L (-2.0-2.0) H 11/28/24 22:50 Jose Angel Test Pos 11/28/24 22:50 A-a Gradient 23.0 mmHg 11/28/24 22:50 FiO2 28.0 11/28/24 22:50 Blood Gas Comments Dannie well ae 11/28/24 22:50 Sodium 139 mmol/L (136-145) 11/30/24 05:18 Corrected Sodium 142 mmol/L (136-145) 11/30/24 05:18 Potassium 4.6 mmol/L (3.5-5.1) 11/30/24 05:18 Chloride 100 mmol/L (98-107) 11/30/24 05:18 Carbon Dioxide 40.0 mmol/L (21-32) H 11/30/24 05:18 BUN 29 mg/dL (7-18) H 11/30/24 05:18 Creatinine 1.33 mg/dL (0.55-1.02) H 11/30/24 05:18 Est GFR (MDRD) Af Amer 50 (>60) L 11/30/24 05:18 Est GFR (MDRD) Non-Af 42 (>60) L 11/30/24 05:18 Glucose 205 mg/dL (65-99) H 11/30/24 05:18 POC Glucose (mg/dL) 188 mg/dL (65-99) H 11/30/24 10:39 Calcium 9.0 mg/dL (8.5-10.1) 11/30/24 05:18 Corrected Calcium 9.6 mg/dL (8.5-10.1) 11/30/24 05:18 Magnesium 2.2 mg/dL (2.0-2.9) 11/29/24 05:35 Total Bilirubin 0.20 mg/dL (0.2-1.0) 11/30/24 05:18 AST 14 Units/L (15-37) L 11/30/24 05:18 ALT 17 Units/L (12-78) 11/30/24 05:18 Alkaline Phosphatase 76 Units/L (46-116) 11/30/24 05:18 B-Natriuretic Peptide 159 pg/mL (0-79) H 11/28/24 22:41 Total Protein 6.9 g/dL (6.4-8.2) 11/30/24 05:18 Albumin 3.2 g/dL (3.4-5.0) L 11/30/24 05:18 Globulin 3.7 g/dL (2.5-4.5) 11/30/24 05:18 Albumin/Globulin Ratio 0.9 Ratio (1.1-2.1) L 11/30/24 05:18 Specimen Type Catherized urine 11/28/24 23:09 Urine Color Pale yellow (YELLOW) 11/28/24 23:09 Urine Appearance Clear (CLEAR) 11/28/24 23:09 Urine pH 6.0 (5.0 - 8.0) 11/28/24 23:09 Ur Specific [place] 1.020 (1.000-1.030) 11/28/24 23:09 Urine Protein 1+ (NEGATIVE) 11/28/24 23:09 Urine Glucose (UA) Negative (NEGATIVE) 11/28/24 23:09 Urine Ketones Negative (NEGATIVE) 11/28/24 23:09 Urine Blood Negative (NEGATIVE) 11/28/24 23:09 Urine Nitrite Negative (NEGATIVE) 11/28/24 23:09 Urine Bilirubin Negative (NEGATIVE) 11/28/24 23:09 Urine Urobilinogen Normal (NORMAL) 11/28/24 23:09 Ur Leukocyte Esterase Negative (NEGATIVE) 11/28/24 23:09 Urine RBC None seen /HPF (0-3) 11/28/24 23:09 Urine WBC 0-2 /HPF (0-5) 11/28/24 23:09 Ur Squamous Epith Cells Rare /HPF (NEGATIVE) 11/28/24 23:09 Urine Bacteria Negative /HPF (NEGATIVE) 11/28/24 23:09 Ur Culture Indicated? No/not indicated 11/28/24 23:09 Plan (1) CHF exacerbation: Status: Acute Qualifiers: Heart failure type: unspecified Qualified Code(s): I50.9 - Heart failure, unspecified Plan: IV bumex 1mg bid Monitor I's and O's (2) Chronic renal insufficiency: Status: Acute Qualifiers: Chronic kidney disease stage: unspecified stage Qualified Code(s): N 18.9 - Chronic kidney disease, unspecified
[2024-11-30] MEDS: NORCO 10/325 TAB PO PRN (14:30)
[2024-11-30] MEDS: TRICOR TAB 145 MG PO SCH (21:01)
[2024-11-30] MEDS: TORADOL 30 MG VIAL IVP PRN (21:01)
[2024-11-30] MEDS: BUMEX INJ 1 MG VIAL IVP SCH (21:02)
[2024-12-01 05:34] LABS: MEAN PLATELET VOLUME 9.2 fL (7.4-11.0); RED CELL DISTRIBUTION WIDTH 17.0 % (11.6-16.5)
[2024-12-01 05:45] LABS: COR CA(FOR HYPOALB) 10.0 mg/dL (8.5-10.1); COR NA(FOR HYPERGLY) 141.0 mmol/L (136-145); CREATININE 1.28 mg/dL (0.55-1.02); eGFR NON BLACK RACES 44.0 (>60)
[2024-12-01] MEDS: PEPCID TAB 20 MG PO SCH (08:53)
[2024-12-01] MEDS ORDERED: COLACE CAP 100 MG PO PRN (09:49)
[2024-12-01] MEDS ORDERED: VALIUM ONE (09:57)
[2024-12-01] MEDS: VALIUM PO ONE (10:01)
--- NOTE | 2024-12-01 10:45 | PCM.PROG ---
Progress Note Progress Note for Day of Date of Exam: 12/01/24 Subjective Subjective: Patient seen at bedside, no acute events overnight. She reports having pain in her lower back and spasms. She had injections in her back about a week ago with Dr. Andrew. She states Toradol has been helping control her pain. Her lower extremity edema is slightly better. She has been on Bumex since yesterday. She is currently admitted for CHF exacerbation. Labs/reviewed: - WBC 3.9 hemoglobin 8.4 platelet 212 potassium 4.1 creatinine 1.28 Plan: Continue Bumex IV, monitor I's and O's and daily weight. Continue pain control with Toradol, tramadol and Lorcet. Will DC morphine. Add Valium as needed for muscle spasms. Ambulate as tolerated. Continue home medications. Order iron studies. Replace electrolytes as per protocol. Monitor a.m. labs and imaging. Past Medical Family Social History Allergies: Allergies meperidine (From Demerol) Allergy (Verified 10/17/24 08:57) Vital Signs and I&O's Vital Signs: Vital Signs Temperature 97.8 F Temperature 97.6 F Pulse Rate [Left Brachial] 70 Pulse Rate [Left Brachial] 68 Pulse Rate 75 Respiratory Rate 18 Respiratory Rate 20 Respiratory Rate 19 Blood Pressure [Left Arm] 118/55 Blood Pressure [Left Arm] 115/53 O2 Sat by Pulse Oximetry 94 O2 Sat by Pulse Oximetry 93 O2 Sat by Pulse Oximetry 97 Intake and Output: Intake & Output 11/28/24 11/29/24 11/30/24 12/01/24 23:59 23:59 23:59 23:59 Intake Total 1200 / 1200 2600 / 2600 340 / 340 Output Total 2500 / 2500 2825 / 2825 450 / 450 Balance -1300 / -1300 -225 / -225 -110 / -110 Physical Exam Oriented: Normal Eyes: Normal Ear: Normal Nose: Normal Throat: Normal Respiratory: Normal Cardiovascular: Edema (3+ BLE) Auscultation: Bowel Sounds: Normal Palpation: Normal Tenderness: Normal Skin: Normal Musculoskeletal: Normal Psychiatric: Normal Mood Description: Calm and Appropriate Affect: Normal Speech Pattern: Clear and Appropriate Laboratory and Diagnostics 12/01/24 05:15 12/01/24 05:15 Labs: Laboratory WBC 3.9 X10^3/uL (3.6-10.0) 12/01/24 05:15 RBC 3.37 X10^6/uL (3.5-5.4) L 12/01/24 05:15 Hgb 8.4 g/dL (12.0-16.0) L 12/01/24 05:15 Hct 26.6 % (36.0-47.0) L 12/01/24 05:15 MCV 79.0 fL (80.0-100.0) L 12/01/24 05:15 MCH 25.1 pg (27.0-34.0) L 12/01/24 05:15 MCHC 31.8 g/dL (33.0-35.0) L 12/01/24 05:15 RDW 17.0 % (11.6-16.5) H 12/01/24 05:15 Plt Count 212 X10^3/uL (150.0-450.0) 12/01/24 05:15 MPV 9.2 fL (7.4-11.0) 12/01/24 05:15 Neut % (Auto) 47.9 % (42.0-75.0) 12/01/24 05:15 Lymph % (Auto) 34.5 % (21.0-51.0) 12/01/24 05:15 [place] % (Auto) 15.2 % (0.0-13.0) H 12/01/24 05:15 Eos % (Auto) 1.9 % (0.9-2.9) 12/01/24 05:15 Baso % (Auto) 0.5 % (0.2-1.0) 12/01/24 05:15 Neut # (Auto) 1.9 x10^3/uL (2.2-4.8) L 12/01/24 05:15 Lymph # (Auto) 1.3 X10^3/uL (1.3-2.9) 12/01/24 05:15 [place] # (Auto) 0.6 x10^3/uL (0.3-0.8) 12/01/24 05:15 Eos # (Auto) 0.1 x10^3/uL (0.0-0.2) 12/01/24 05:15 Baso # (Auto) 0.0 X10^3/uL (0.0-0.1) 12/01/24 05:15 Absolute Nucleated RBC 0.2 /100WBC 12/01/24 05:15 Sample Site Lr 11/28/24 22:50 ABG pH 7.360 (7.35-7.45) 11/28/24 22:50 ABG pCO2 68.0 mmHg (35.0-45.0) H* 11/28/24 22:50 ABG pO2 92.0 mmHg (80.0-100.0) 11/28/24 22:50 ABG HCO3 38.4 mmol/L (22-26) H* 11/28/24 22:50 ABG O2 Saturation 97.0 % (90-100) 11/28/24 22:50 ABG Base Excess 10.4 mmol/L (-2.0-2.0) H 11/28/24 22:50 Jose Angel Test Pos 11/28/24 22:50 A-a Gradient 23.0 mmHg 11/28/24 22:50 FiO2 28.0 11/28/24 22:50 Blood Gas Comments Dannie well ae 11/28/24 22:50 Sodium 140 mmol/L (136-145) 12/01/24 05:15 Corrected Sodium 141 mmol/L (136-145) 12/01/24 05:15 Potassium 4.1 mmol/L (3.5-5.1) 12/01/24 05:15 Chloride 102 mmol/L (98-107) 12/01/24 05:15 Carbon Dioxide 42.5 mmol/L (21-32) H 12/01/24 05:15 BUN 27 mg/dL (7-18) H 12/01/24 05:15 Creatinine 1.28 mg/dL (0.55-1.02) H 12/01/24 05:15 Est GFR (MDRD) Af Amer 53 (>60) L 12/01/24 05:15 Est GFR (MDRD) Non-Af 44 (>60) L 12/01/24 05:15 Glucose 158 mg/dL (65-99) H 12/01/24 05:15 POC Glucose (mg/dL) 150 mg/dL (65-99) H 12/01/24 05:35 Calcium 9.0 mg/dL (8.5-10.1) 12/01/24 05:15 Corrected Calcium 10.0 mg/dL (8.5-10.1) 12/01/24 05:15 Magnesium 2.2 mg/dL (2.0-2.9) 11/29/24 05:35 Total Bilirubin 0.20 mg/dL (0.2-1.0) 12/01/24 05:15 AST 15 Units/L (15-37) 12/01/24 05:15 ALT 17 Units/L (12-78) 12/01/24 05:15 Alkaline Phosphatase 68 Units/L (46-116) 12/01/24 05:15 B-Natriuretic Peptide 159 pg/mL (0-79) H 11/28/24 22:41 Total Protein 6.1 g/dL (6.4-8.2) L 12/01/24 05:15 Albumin 2.8 g/dL (3.4-5.0) L 12/01/24 05:15 Globulin 3.3 g/dL (2.5-4.5) 12/01/24 05:15 Albumin/Globulin Ratio 0.8 Ratio (1.1-2.1) L 12/01/24 05:15 Specimen Type Catherized urine 11/28/24 23:09 Urine Color Pale yellow (YELLOW) 11/28/24 23:09 Urine Appearance Clear (CLEAR) 11/28/24 23:09 Urine pH 6.0 (5.0 - 8.0) 11/28/24 23:09 Ur Specific [place] 1.020 (1.000-1.030) 11/28/24 23:09 Urine Protein 1+ (NEGATIVE) 11/28/24 23:09 Urine Glucose (UA) Negative (NEGATIVE) 11/28/24 23:09 Urine Ketones Negative (NEGATIVE) 11/28/24 23:09 Urine Blood Negative (NEGATIVE) 11/28/24 23:09 Urine Nitrite Negative (NEGATIVE) 11/28/24 23:09 Urine Bilirubin Negative (NEGATIVE) 11/28/24 23:09 Urine Urobilinogen Normal (NORMAL) 11/28/24 23:09 Ur Leukocyte Esterase Negative (NEGATIVE) 11/28/24 23:09 Urine RBC None seen /HPF (0-3) 11/28/24 23:09 Urine WBC 0-2 /HPF (0-5) 11/28/24 23:09 Ur Squamous Epith Cells Rare /HPF (NEGATIVE) 11/28/24 23:09 Urine Bacteria Negative /HPF (NEGATIVE) 11/28/24 23:09 Ur Culture Indicated? 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
[2024-12-01] MEDS: MILK OF MAGNESIA PO PRN (14:14)
[2024-12-01] MEDS: NS 100 ML IV 100 ML with VENOFER 400 MG IV ONE (15:03)
[2024-12-01] MEDS: LIDODERM 5% PATCH TD SCH (17:45)
[2024-12-01] MEDS: TRICOR TAB 48 MG PO SCH (21:37)
[2024-12-01] MEDS: ASPIRIN EC 81 MG PO SCH (21:37)
[2024-12-02 05:43] LABS: MEAN PLATELET VOLUME 9.3 fL (7.4-11.0); RED CELL DISTRIBUTION WIDTH 16.8 % (11.6-16.5)
[2024-12-02 06:00] LABS: COR CA(FOR HYPOALB) 9.9 mg/dL (8.5-10.1); COR NA(FOR HYPERGLY) 142.0 mmol/L (136-145); CREATININE 1.29 mg/dL (0.55-1.02); eGFR NON BLACK RACES 43.0 (>60)
--- NOTE | 2024-12-02 09:54 | PCM.PROG ---
Progress Note Progress Note for Day of Date of Exam: 12/02/24 Subjective Subjective: Patient seen at bedside, no acute events overnight. She is feeling slightly better. Her UOP has not been as good with Bumex. She was having more output with Lasix. Her back pain is slightly better. She did get iron infusion yesterday. She is currently admitted for CHF exacerbation. Labs/reviewed: - WBC 4.7 hemoglobin 8.3 platelet 210 potassium 4.3 creatinine 1.29 Plan: DC Bumex, switch to Lasix 40 mg IV BID. Give one time dose lasix 20 mg IV now. Monitor I's and O's and daily weight. Continue pain control with Toradol, tramadol and Lorcet. Continue Lyrica and Valium as needed for muscle spasms. Ambulate as tolerated. Continue home medications. Remove emerson. Replace electrolytes as per protocol. Monitor a.m. labs and imaging. Past Medical Family Social History Allergies: Allergies meperidine (From Demerol) Allergy (Verified 10/17/24 08:57) Vital Signs and I&O's Vital Signs: Vital Signs Temperature 98.2 F Pulse Rate [Left Brachial] 70 Pulse Rate 93 Respiratory Rate 20 Respiratory Rate 22 Respiratory Rate 17 Blood Pressure [Left Arm] 108/53 O2 Sat by Pulse Oximetry 95 O2 Sat by Pulse Oximetry 95 Intake and Output: Intake & Output 11/29/24 11/30/24 12/01/24 12/02/24 23:59 23:59 23:59 23:59 Intake Total 1200 / 1200 2600 / 2600 2083 / 2083 400 / 400 Output Total 2500 / 2500 2825 / 2825 850 / 850 Balance -1300 / -1300 -225 / -225 1233 / 1233 400 / 400 Physical Exam Oriented: Normal Eyes: Normal Ear: Normal Nose: Normal Throat: Normal Respiratory: Normal Cardiovascular: Edema (3+ BLE) Auscultation: Bowel Sounds: Normal Palpation: Normal Tenderness: Normal Skin: Normal Musculoskeletal: Normal Psychiatric: Normal Mood Description: Calm and Appropriate Affect: Normal Speech Pattern: Clear and Appropriate Laboratory and Diagnostics 12/02/24 05:14 12/02/24 05:14 Labs: Laboratory WBC 4.7 X10^3/uL (3.6-10.0) 12/02/24 05:14 RBC 3.30 X10^6/uL (3.5-5.4) L 12/02/24 05:14 Hgb 8.3 g/dL (12.0-16.0) L 12/02/24 05:14 Hct 26.2 % (36.0-47.0) L 12/02/24 05:14 MCV 79.5 fL (80.0-100.0) L 12/02/24 05:14 MCH 25.2 pg (27.0-34.0) L 12/02/24 05:14 MCHC 31.7 g/dL (33.0-35.0) L 12/02/24 05:14 RDW 16.8 % (11.6-16.5) H 12/02/24 05:14 Plt Count 210 X10^3/uL (150.0-450.0) 12/02/24 05:14 MPV 9.3 fL (7.4-11.0) 12/02/24 05:14 Neut % (Auto) 57.0 % (42.0-75.0) 12/02/24 05:14 Lymph % (Auto) 26.1 % (21.0-51.0) 12/02/24 05:14 Armstrong % (Auto) 14.6 % (0.0-13.0) H 12/02/24 05:14 Eos % (Auto) 1.7 % (0.9-2.9) 12/02/24 05:14 Baso % (Auto) 0.6 % (0.2-1.0) 12/02/24 05:14 Neut # (Auto) 2.7 x10^3/uL (2.2-4.8) 12/02/24 05:14 Lymph # (Auto) 1.2 X10^3/uL (1.3-2.9) L 12/02/24 05:14 Armstrong # (Auto) 0.7 x10^3/uL (0.3-0.8) 12/02/24 05:14 Eos # (Auto) 0.1 x10^3/uL (0.0-0.2) 12/02/24 05:14 Baso # (Auto) 0.0 X10^3/uL (0.0-0.1) 12/02/24 05:14 Absolute Nucleated RBC 0.1 /100WBC 12/02/24 05:14 Sample Site Lr 11/28/24 22:50 ABG pH 7.360 (7.35-7.45) 11/28/24 22:50 ABG pCO2 68.0 mmHg (35.0-45.0) H* 11/28/24 22:50 ABG pO2 92.0 mmHg (80.0-100.0) 11/28/24 22:50 ABG HCO3 38.4 mmol/L (22-26) H* 11/28/24 22:50 ABG O2 Saturation 97.0 % (90-100) 11/28/24 22:50 ABG Base Excess 10.4 mmol/L (-2.0-2.0) H 11/28/24 22:50 Jose Angel Test Pos 11/28/24 22:50 A-a Gradient 23.0 mmHg 11/28/24 22:50 FiO2 28.0 11/28/24 22:50 Blood Gas Comments Dannie well ae 11/28/24 22:50 Sodium 140 mmol/L (136-145) 12/02/24 05:14 Corrected Sodium 142 mmol/L (136-145) 12/02/24 05:14 Potassium 4.3 mmol/L (3.5-5.1) 12/02/24 05:14 Chloride 102 mmol/L (98-107) 12/02/24 05:14 Carbon Dioxide 41.0 mmol/L (21-32) H 12/02/24 05:14 BUN 31 mg/dL (7-18) H 12/02/24 05:14 Creatinine 1.29 mg/dL (0.55-1.02) H 12/02/24 05:14 Est GFR (MDRD) Af Amer 52 (>60) L 12/02/24 05:14 Est GFR (MDRD) Non-Af 43 (>60) L 12/02/24 05:14 Glucose 185 mg/dL (65-99) H 12/02/24 05:14 POC Glucose (mg/dL) 176 mg/dL (65-99) H 12/01/24 19:35 Calcium 8.9 mg/dL (8.5-10.1) 12/02/24 05:14 Corrected Calcium 9.9 mg/dL (8.5-10.1) 12/02/24 05:14 Magnesium 2.2 mg/dL (2.0-2.9) 12/02/24 05:14 Iron 24 ug/dL (50-175) L 12/01/24 05:15 TIBC 497 ug/dL (250-450) H 12/01/24 05:15 Ferritin 11 ng/mL (8-252) 12/01/24 05:15 Total Bilirubin 0.10 mg/dL (0.2-1.0) L 12/02/24 05:14 AST 16 Units/L (15-37) 12/02/24 05:14 ALT 16 Units/L (12-78) 12/02/24 05:14 Alkaline Phosphatase 71 Units/L (46-116) 12/02/24 05:14 B-Natriuretic Peptide 189 pg/mL (0-79) H 12/02/24 05:14 Total Protein 6.1 g/dL (6.4-8.2) L 12/02/24 05:14 Albumin 2.8 g/dL (3.4-5.0) L 12/02/24 05:14 Globulin 3.3 g/dL (2.5-4.5) 12/02/24 05:14 Albumin/Globulin Ratio 0.8 Ratio (1.1-2.1) L 12/02/24 05:14 Specimen Type Catherized urine 11/28/24 23:09 Urine Color Pale yellow (YELLOW) 11/28/24 23:09 Urine Appearance Clear (CLEAR) 11/28/24 23:09 Urine pH 6.0 (5.0 - 8.0) 11/28/24 23:09 Ur Specific [place] 1.020 (1.000-1.030) 11/28/24 23:09 Urine Protein 1+ (NEGATIVE) 11/28/24 23:09 Urine Glucose (UA) Negative (NEGATIVE) 11/28/24 23:09 Urine Ketones Negative (NEGATIVE) 11/28/24 23:09 Urine Blood Negative (NEGATIVE) 11/28/24 23:09 Urine Nitrite Negative (NEGATIVE) 11/28/24 23:09 Urine Bilirubin Negative (NEGATIVE) 11/28/24 23:09 Urine Urobilinogen Normal (NORMAL) 11/28/24 23:09 Ur Leukocyte Esterase Negative (NEGATIVE) 11/28/24 23:09 Urine RBC None seen /HPF (0-3) 11/28/24 23:09 Urine WBC 0-2 /HPF (0-5) 11/28/24 23:09 Ur Squamous Epith Cells Rare /HPF (NEGATIVE) 11/28/24 23:09 Urine Bacteria Negative /HPF (NEGATIVE) 11/28/24 23:09 Ur Culture Indicated? 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
[2024-12-02] MEDS: LASIX IVP NR (10:50)
[2024-12-02] MEDS: VALIUM PO PRN (10:50)
[2024-12-02 14:00] LABS: BLOOD/HEMOGLOBIN,URINE 5+ (NEGATIVE); LEUKOCYTE ESTERASE ,URINE 1+ (NEGATIVE); NITRITES,URINE NEGATIVE (NEGATIVE)
[2024-12-02 14:09] LABS: APPEARANCE,URINE SLIGHTLY HAZY (CLEAR); SQUAMOUS EPITHELIAL CELL,UR NEGATIVE /HPF (NEGATIVE); YEAST,URINE RARE /HPF (NEGATIVE)
[2024-12-02] MEDS: PROTONIX TAB 40 MG PO SCH (15:30)
[2024-12-02] MEDS ORDERED: LASIX IVP SCH (17:00)
[2024-12-02] MEDS: LASIX IVP SCH (17:06)
[2024-12-03 05:11] VITALS: RESP 20
[2024-12-03 05:31] LABS: MEAN PLATELET VOLUME 9.1 fL (7.4-11.0); RED CELL DISTRIBUTION WIDTH 16.7 % (11.6-16.5)
[2024-12-03 05:41] LABS: COR CA(FOR HYPOALB) 9.6 mg/dL (8.5-10.1); COR NA(FOR HYPERGLY) 144.0 mmol/L (136-145); CREATININE 1.21 mg/dL (0.55-1.02); eGFR NON BLACK RACES 46.0 (>60)
[2024-12-03 09:01] VITALS: BP 143/63; PULSE 71; TEMP 98.2; O2SAT 100
== END 2024-12-03 16:35 | disposition home health service (06) | DRG 292 ==
LOC: MED/SURG 22:12 → ER 22:12 → MED/SURG 11-29 04:25
PROVIDERS: ADMIT Family Medicine; ATTEND Family Medicine
DX: I50.89 Other heart failure; Z79.4 Long term (current) use of insulin; R26.89 Other abnormalities of gait and mobility; R94.4 Abnormal results of kidney function studies; E11.65 Type 2 diabetes mellitus with hyperglycemia; D64.89 Other specified anemias; I48.20 Chronic atrial fibrillation, unspecified; M79.7 Fibromyalgia; E78.5 Hyperlipidemia, unspecified; Z79.01 Long term (current) use of anticoagulants; M51.26 Other intervertebral disc displacement, lumbar region; I13.0 Hypertensive heart and chronic kidney disease with heart failure and stage 1 through stage 4 chronic kidney disease, or unspecified chronic kidney disease; F41.8 Other specified anxiety disorders; R06.02 Shortness of breath; J44.9 Chronic obstructive pulmonary disease, unspecified; M62.830 Muscle spasm of back; N18.9 Chronic kidney disease, unspecified; M48.061 Spinal stenosis, lumbar region without neurogenic claudication